=== PATIENT | female | born 1975 | race Caucasian/White ===

== ENCOUNTER 2017-04-05 20:54 | Emergency (ER) | payer OTHER ==
--- NOTE | 2017-04-05 21:19 | ERPHSYRPT ---
- History of Present Illness Time Seen by Provider: 04/05/17 21:10 Source: patient Exam Limitations: no limitations Physician History: States has latex allergy and was exposed to latex on 02/17/17 and was given Steroid shot/Predisone. Noted increased HR, dizziness, SOB, weakness with episode. Denies any CP, cough fever or any recent illness. States have not been evaluated for palpitations. Pt. on Toprol for HR control. Pt. previously evaluated for Hypo/Hyperthyroidism and was normal. States feels dehydrated but have been drinking well without N/V/D, but states mouth feels dry. Timing/Duration: day(s) (17), intermittent Severity: moderate Modifying Factors: Improves With: movement (worsens), rest (improves) Associated Symptoms: shortness of breath, weakness, No nausea, No vomiting, No heartburn, No cough, No chest pain, No headaches, No loss of appetite Allergies/Adverse Reactions: latex Allergy (Severe, Verified 04/05/17 21:14) Penicillins Allergy (Unknown, Verified 04/05/17 21:14) Home Medications: Albuterol Sulfate [Proventil] 2.5 mg IH DAILY PRN PRN 10/13/12 [History] Citalopram Hydrobromide 20 mg* [ceLEXa 20 MG] 20 mg PO HS 10/13/12 [History] Clonazepam 0.5 mg [Klonopin 0.5 MG] 0.5 mg PO BID PRN PRN 10/13/12 [ History] Montelukast Sodium 10 mg [Singulair 10 MG] 10 mg PO HS 10/13/12 [History] Pravastatin Sodium 10 mg PO HS 10/06/14 [History] Aspirin 81 mg PO DAILY 04/05/17 [History] Cholecalciferol (Vitamin D3) [Vitamin D] 1,000 unit PO 04/05/17 [History] Cyclobenzaprine HCl [Flexeril] 10 mg PO PRN 04/05/17 [History] Fluticasone/Salmeterol 230/21* [Advair Hfa 230/21 Mcg MDI] 2 puff IH BIDRT [History] Furosemide 40 mg [Lasix 40 MG] 40 mg PO PRN 04/05/17 [History] Liraglutide [Victoza 2-Glenn] 1.2 mg SQ DAILY 04/05/17 [History] Losartan Potassium 100 mg PO DAILY 04/05/17 [History] Metformin HCl [Metformin HCl ER] 500 mg PO BID 04/05/17 [History] Omeprazole 20 MG [Prilosec 20 mg] 20 mg PO DAILY 04/05/17 [History] Hx Influenza Vaccination/Date Given: Yes Hx Pneumococcal Vaccination/Date Given: No - Review of Systems Constitutional: Fatigue, No Fever, No Chills Eyes: No Symptoms Ears, Nose, & Throat: No Symptoms Respiratory: No Cough Cardiac: Palpitations, No Chest Pain, No Edema, No Syncope, No Orthopnea Abdominal/Gastrointestinal: No Abdominal Pain, No Nausea, No Vomiting, No Diarrhea Genitourinary Symptoms: No Dysuria Musculoskeletal: No Back Pain, No Neck Pain Skin: No Rash Neurological: No Dizziness, No Focal Weakness, No Sensory Changes Psychological: No Symptoms Endocrine: No Symptoms All Other Systems: Reviewed and Negative - Past Medical History Pertinent Past Medical History: Yes Neurological History: No Pertinent History ENT History: No Pertinent History Cardiac History: Arrhythmia Respiratory History: Asthma Endocrine Medical History: Diabetes Type II Musculoskeletal History: No Pertinent History GI Medical History: No Pertinent History History: No Pertinent History Psycho-Social History: No Pertinent History Female Reproductive Disorders: Fibroids Other Medical History: PT. HAD BUNIONECTOMY BIALTERAL AND ONNING OF SECOND TOES TO STRAIGHTEN AND DECREASE LATERAL DEVIATION 2012 - Past Surgical History Past Surgical History: Yes Neuro Surgical History: No Pertinent History Cardiac: No Pertinent History Respiratory: No Pertinent History Gastrointestinal: Cholecystectomy Genitourinary: No Pertinent History Musculoskeletal: Orthopedic Surgery Female Surgical History: Hysterectomy, Section Other Surgical History: tonsils, Bilateral feet - Social History Smoking Status: Never smoker Exposure to second hand smoke: Yes Drug Use: none Significant Family History: diabetes, hypertension - Nursing Vital Signs Nursing Vital Signs: Initial Vital Signs Temperature 98.7 F 04/05/17 21:10 Pulse Rate 114 H 04/05/17 21:10 Respiratory Rate 20 04/05/17 21:10 Blood Pressure 142/91 04/05/17 21:10 O2 Sat by Pulse Oximetry 96 04/05/17 21:10 Pain Scale Pain Intensity 0 - Physical Exam General Appearance: no apparent distress, alert Eye Exam: PERRL/EOMI, eyes nml inspection Ears, Nose, Throat Exam: normal ENT inspection, TMs normal, pharynx normal, moist mucous membranes Neck Exam: normal inspection, non-tender, supple, full range of motion Respiratory Exam: normal breath sounds, lungs clear, No respiratory distress Cardiovascular Exam: regular rate/rhythm, normal peripheral pulses, tachycardia Gastrointestinal/Abdomen Exam: soft, normal bowel sounds, No tenderness, No mass Back Exam: normal inspection, normal range of motion, No CVA tenderness, No vertebral tenderness Extremity Exam: normal inspection, normal range of motion, pelvis stable Neurologic Exam: alert, oriented x 3, cooperative, normal mood/affect, nml cerebellar function, nml station & gait, sensation nml, No motor deficits Skin Exam: normal color, warm, dry, No rash Lymphatic Exam: No adenopathy - Course Nursing assessment & vital signs reviewed: Yes EKG Interpreted by Me: RATE ([id number]), Sinus Tach, NORMAL AXIS, NORMAL INTERVALS, NORMAL QRS Ordered Tests: Active Orders 24 hr Category Date Time Status Supervisor Nurse STAT Care 04/05/17 21:26 Active Clean Catch Urine Specimen STAT Care 04/05/17 22:29 Active EKG-ER Only STAT Care 04/05/17 21:26 Active IV Insertion STAT Care 04/05/17 21:25 Active CHEST 2 VIEWS (PA AND LAT) Stat Exams 04/05/17 21:26 Taken CBC W DIFF Stat Lab 04/05/17 21:35 Completed CMP Stat Lab 04/05/17 21:35 Completed D-DIMER QUANTITATION Stat Lab 04/05/17 21:35 Completed MAGNESIUM Stat Lab 04/05/17 21:35 Completed Manual Differential NC Stat Lab 04/05/17 21:35 Completed PHOSPHOROUS Stat Lab 04/05/17 21:35 Completed UA W/RFX UR CULTURE Stat Lab 04/05/17 22:45 Completed Medication Summary Discontinued Medications Generic Name Dose Route Start Last Admin Trade Name Freq PRN Reason Stop Dose Admin Sodium Chloride 1,000 mls @ 999 mls/hr 04/05/17 21:25 04/05/17 21:35 Sodium Chloride 0.9% 1000 Ml IV 04/05/17 22:25 999 mls/hr .Q1H1M STA Administration Sodium Chloride Confirm 04/05/17 21:28 Sodium Chloride 0.9% 1000 Ml Administered 04/05/17 21:29 Dose 1,000 mls @ .ROUTE .STK-MED ONE Lab/Rad Data: Laboratory Result Diagrams 04/05/17 21:35 04/05/17 21:35 Laboratory Results 04/05/17 04/05/17 04/05/17 Range/Units 22:45 21:35 21:35 WBC (4.0-10.5) K/mm3 RBC (4.1-5.4) M/mm3 Hgb (12.0-16.0) gm/dl Hct (35-47) % MCV (78-100) fl MCH (26-32) pg MCHC (32-36) g/dl RDW (11.5-14.0) % Plt Count (150-450) K/mm3 MPV (6-9.5) fl Segmented Neutrophils (36.0-66.0) % Lymphocytes (Manual) (24-44) % Monocytes (Manual) (0.0-12.0) % Differential Comment Platelet Estimate (NORMAL) D-Dimer 234 (0-500) ng/mL Sodium 140 (136-145) mEq/L Potassium 3.7 (3.5-5.1) mEq/L Chloride 101 (98-107) mEq/L Carbon Dioxide 23.2 (21-32) mEq/L Anion Gap 19.1 H (5-15) MEQ/L BUN 19 (9-20) mg/dL Creatinine 0.96 (0.55-1.30) mg/dl Estimated GFR > 60 ML/MIN Glucose 183 H (70-110) MG/DL Calcium 9.3 (8.5-10.1) mg/dL Phosphorus 3.2 (2.6-4.7) mg/dL Magnesium 1.9 (1.8-2.4) mg/dL Total Bilirubin 0.30 (0.2-1.0) mg/dL AST 9 L (15-37) U/L ALT 39 (12-78) U/L Alkaline Phosphatase 83 (46-116) U/L Serum Total Protein 6.8 (6.4-8.2) gm/dL Albumin 3.7 (3.4-5.0) g/dL Ur Collection Type CLEAN CATCH Urine Color YELLOW (YELLOW) Urine Appearance CLEAR (CLEAR) Urine pH 5.0 (5-6) Ur Specific [place] 1.020 (1.005-1.025) Urine Protein NEGATIVE (Negative) Urine Ketones MODERATE (NEGATIVE) Urine Blood NEGATIVE (0-5) Curry/ul Urine Nitrite NEGATIVE (NEGATIVE) Urine Bilirubin NEGATIVE (NEGATIVE) Urine Urobilinogen NORMAL (0-1) mg/dL Ur Leukocyte Esterase NEGATIVE (NEGATIVE) Urine Glucose 250 (NEGATIVE) mg/dL Specimen Received 04/05/16 2245 04/05/17 Range/Units 21:35 WBC 17.9 H (4.0-10.5) K/mm3 RBC 4.48 (4.1-5.4) M/mm3 Hgb 13.0 (12.0-16.0) gm/dl Hct 39.6 (35-47) % MCV 88.4 (78-100) fl MCH 29.0 (26-32) pg MCHC 32.8 (32-36) g/dl RDW 15.5 H (11.5-14.0) % Plt Count 384 (150-450) K/mm3 MPV 8.9 (6-9.5) fl Segmented Neutrophils 78 H (36.0-66.0) % Lymphocytes (Manual) 15 L (24-44) % Monocytes (Manual) 7 (0.0-12.0) % Differential Comment NORMAL Platelet Estimate NORMAL (NORMAL) D-Dimer (0-500) ng/mL Sodium (136-145) mEq/L Potassium (3.5-5.1) mEq/L Chloride (98-107) mEq/L Carbon Dioxide (21-32) mEq/L Anion Gap (5-15) MEQ/L BUN (9-20) mg/dL Creatinine (0.55-1.30) mg/dl Estimated GFR ML/MIN Glucose (70-110) MG/DL Calcium (8.5-10.1) mg/dL Phosphorus (2.6-4.7) mg/dL Magnesium (1.8-2.4) mg/dL Total Bilirubin (0.2-1.0) mg/dL AST (15-37) U/L ALT (12-78) U/L Alkaline Phosphatase (46-116) U/L Serum Total Protein (6.4-8.2) gm/dL Albumin (3.4-5.0) g/dL Ur Collection Type Urine Color (YELLOW) Urine Appearance (CLEAR) Urine pH (5-6) Ur Specific [place] (1.005-1.025) Urine Protein (Negative) Urine Ketones (NEGATIVE) Urine Blood (0-5) Curry/ul Urine Nitrite (NEGATIVE) Urine Bilirubin (NEGATIVE) Urine Urobilinogen (0-1) mg/dL Ur Leukocyte Esterase (NEGATIVE) Urine Glucose (NEGATIVE) mg/dL Specimen Received - Progress Progress: improved Progress Note: 04/05/17 23:34 Pt. given IVF's with decrease HR 100's. Counseled pt/family regarding: lab results, diagnosis - Departure Time of Disposition: 23:36 Departure Disposition: Home Clinical Impression: Palpitations Condition: Stable Critical Care Time: No Referrals: MERRILL HAYES [Primary Care Provider] - Instructions: Arrhythmias Additional Instructions: Return for worse palpitations, chest pain, short of breath or any problems
[2017-04-05] MEDS ORDERED: Sodium Chloride 0.9% 1000 ML 1,000 ML IV STA (21:25)
[2017-04-05] MEDS ORDERED: Sodium Chloride 0.9% 1000 ML 1,000 ML ONE (21:28)
[2017-04-05 21:44] LABS: Mean Cell Volume 88.4 fl (78-100); Mean Platelet Volume 8.9 fl (6-9.5); Platelet Count 384 K/mm3 (150-450); Red Blood Count 4.48 M/mm3 (4.1-5.4); Red Cell Distribution Width 15.5 % (11.5-14.0); White Blood Count 17.9 K/mm3 (4.0-10.5)
[2017-04-05 22:06] LABS: ALBUMIN 3.7 g/dL (3.4-5.0); ALKALINE PHOSPHATASE 83 U/L (46-116); ANION GAP 19.1 MEQ/L (5-15); BLOOD UREA NITROGEN 19 mg/dL (9-20); CHLORIDE 101 mEq/L (98-107); Carbon Dioxide 23.2 mEq/L (21-32); Glucose 183 MG/DL (70-110); MAGNESIUM 1.9 mg/dL (1.8-2.4); PHOSPHOROUS 3.2 mg/dL (2.6-4.7); Potassium 3.7 mEq/L (3.5-5.1); SGOT/AST 9 U/L (15-37); SGPT/ALT 39 U/L (12-78); SODIUM 140 mEq/L (136-145); Total Protein 6.8 gm/dL (6.4-8.2)
[2017-04-05 23:04] LABS: Total Cells Counted 100
[2017-04-05 23:05] LABS: Platelet Estimate NORMAL (NORMAL)
[2017-04-05 23:23] LABS: Collection Type CLEAN CATCH; Glucose 250 mg/dL (NEGATIVE); Leukocyte Esterase NEGATIVE (NEGATIVE)
[2017-04-05 23:24] LABS: ADD URINE CULTURE? NO (NO); Bilirubin NEGATIVE (NEGATIVE); Blood NEGATIVE Ery/ul (0-5); COMPLETE URINE MICROSCOPIC? NO
[2017-04-06] VITALS: BP 130/88; PULSE 98; O2SAT 97
--- NOTE | 2017-04-06 08:47 | XRAY ---
Indication: Tachycardia and short of breath. Comparison: September 04, 2016. PA/lateral chest remains clear. Heart and mediastinal structures within normal limits. Bony thorax intact. Impression: Stable nonacute chest.
== END 2017-04-05 23:59 | disposition home or self-care (01) ==
LOC: ED 20:54
DX: R00.2 Palpitations (principal); E11.9 Type 2 diabetes mellitus without complications; Z79.84 Long term (current) use of oral hypoglycemic drugs; Z79.899 Other long term (current) drug therapy
CPT/HCPCS: 36000; 36415; 71020; 80053; 81002; 83735; 84100; 85025; 85379; 93005; 93041; 99284; 99285

== ENCOUNTER 2017-08-05 20:25 | Emergency (ER) | payer OTHER ==
[2017-08-05] MEDS ORDERED: Sodium Chloride 0.9% 1000 ML 1,000 ML IV STA (20:44)
[2017-08-05] MEDS ORDERED: DUONEB 0.5-3 MG/3 ml Neb IH ONE ×2 (20:44→20:54)
--- NOTE | 2017-08-05 20:49 | ERPHSYRPT ---
- History of Present Illness Time Seen by Provider: 08/05/17 20:36 Source: patient Exam Limitations: no limitations Patient Subjective Stated Complaint: pt states she has chetan sick with cough and fever since sunday. states she has had shortness of breath since yesterday and generalized aches. Triage Nursing Assessment: pt alert and oriented, answers questions approp. pt ambulatory with steady gait noted, respirations nonlabored with exp wheezes noted in bilat bases. skin pink warm and dry. Physician History: 41 y/o female with history of asthma comes to the ER with complaints of productive cough, fever, weakness and shortness of breath since Sunday. Pt has been using tylenol with minimal relief. Pt says she had a sore throat and has muscle aches. Multiple sick contacts. Pt eating and drinking less. Timing/Duration: yesterday Cough Quality/Degree: moderate Possible Cause: no prior episodes Modifying Factors: Improves With: nothing Associated Symptoms: fever, chills, cough, lightheadedness, shortness of breath , sore throat, wheezing Allergies/Adverse Reactions: latex Allergy (Severe, Verified 08/05/17 20:41) penicillin G Allergy (Intermediate, Verified 08/05/17 20:41) Hives Penicillins Allergy (Unknown, Verified 08/05/17 20:41) Home Medications: Albuterol Sulfate [Proventil] 2.5 mg IH DAILY PRN PRN 10/13/12 [History] Citalopram Hydrobromide 20 mg* [ceLEXa 20 MG] 20 mg PO HS 10/13/12 [History] Clonazepam 0.5 mg [Klonopin 0.5 MG] 0.5 mg PO BID PRN PRN 10/13/12 [ History] Montelukast Sodium 10 mg [Singulair 10 MG] 10 mg PO HS 10/13/12 [History] Pravastatin Sodium 10 mg PO HS 10/06/14 [History] Aspirin 81 gm Chew [Baby Aspirin 81 mg Chew] 81 mg PO HS 01/19/17 [History ] Clonazepam 0.5 mg [Klonopin 0.5 MG] 0.5 mg PO UD 01/19/17 [History] Escitalopram Oxalate 10 mg [Lexapro 10 MG] 20 mg PO HS 01/19/17 [History] Losartan Potassium [Cozaar] 100 mg PO DAILY 01/19/17 [History] Metformin HCl [Metformin HCl ER] 500 mg PO BID 01/19/17 [History] Metoprolol Succinate [Toprol Xl] 75 mg PO BID 01/19/17 [History] Montelukast Sodium [Singulair] 10 mg PO HS 01/19/17 [History] Pravastatin Sodium [Pravachol] 10 mg PO HS 01/19/17 [History] Cholecalciferol (Vitamin D3) [Vitamin D3] 50,000 unit PO FR 01/20/17 [History] Aspirin 81 mg PO DAILY 04/05/17 [History] Cholecalciferol (Vitamin D3) [Vitamin D] 1,000 unit PO 04/05/17 [History] Cyclobenzaprine HCl [Flexeril] 10 mg PO PRN 04/05/17 [History] Fluticasone/Salmeterol 230/21* [Advair Hfa 230/21 Mcg MDI] 2 puff IH BIDRT [History] Furosemide 40 mg [Lasix 40 MG] 40 mg PO PRN 04/05/17 [History] Liraglutide [Victoza 2-Glenn] 1.2 mg SQ DAILY 04/05/17 [History] Losartan Potassium 100 mg PO DAILY 04/05/17 [History] Metformin HCl [Metformin HCl ER] 500 mg PO BID 04/05/17 [History] Omeprazole 20 MG [Prilosec 20 mg] 20 mg PO DAILY 04/05/17 [History] Hx Tetanus, Diphtheria Vaccination/Date Given: Yes Hx Influenza Vaccination/Date Given: Yes Hx Pneumococcal Vaccination/Date Given: No Immunizations Up to Date: Yes - Review of Systems Constitutional: Fever, Chills, Weakness Eyes: No Symptoms Ears, Nose, & Throat: No Symptoms, Throat Pain, Throat Swelling Respiratory: Cough, Dyspnea, Dyspnea on Exertion (HERNANDEZ) Cardiac: No Chest Pain, No Edema, No Syncope Abdominal/Gastrointestinal: No Abdominal Pain, No Nausea, No Vomiting, No Diarrhea Genitourinary Symptoms: No Dysuria Musculoskeletal: Myalgias, No Back Pain, No Neck Pain Skin: No Rash Neurological: No Dizziness, No Focal Weakness, No Sensory Changes Psychological: No Symptoms Endocrine: No Symptoms All Other Systems: Reviewed and Negative - Past Medical History Pertinent Past Medical History: Yes Neurological History: No Pertinent History ENT History: No Pertinent History Cardiac History: Arrhythmia, Hypertension Respiratory History: Asthma Endocrine Medical History: Diabetes Type II Musculoskeletal History: No Pertinent History GI Medical History: No Pertinent History History: No Pertinent History, Other Psycho-Social History: No Pertinent History Female Reproductive Disorders: No Pertinent History, Fibroids Other Medical History: PT. HAD BUNIONECTOMY BIALTERAL AND ONNING OF SECOND TOES TO STRAIGHTEN AND DECREASE LATERAL DEVIATION 2012 - Past Surgical History Past Surgical History: Yes Neuro Surgical History: No Pertinent History Cardiac: No Pertinent History Respiratory: No Pertinent History Gastrointestinal: Cholecystectomy Genitourinary: No Pertinent History Musculoskeletal: Orthopedic Surgery, Other Female Surgical History: Hysterectomy, Section Other Surgical History: tonsils, Bilateral feet - Social History Smoking Status: Never smoker Exposure to second hand smoke: No Drug Use: none Patient Lives Alone: No Significant Family History: diabetes, hypertension - Female History Hx Last Menstrual Period: hyster Hx Now: No - Nursing Vital Signs Nursing Vital Signs: Initial Vital Signs Temperature 99.5 F 08/05/17 20:31 Pulse Rate 84 08/05/17 20:31 Respiratory Rate 18 08/05/17 20:31 Blood Pressure 119/80 08/05/17 20:31 O2 Sat by Pulse Oximetry 96 08/05/17 20:31 Pain Scale Pain Intensity 3 - Physical Exam General Appearance: mild distress, alert Eye Exam: PERRL/EOMI, eyes nml inspection Ears, Nose, Throat Exam: normal ENT inspection, TMs normal, pharynx normal, moist mucous membranes Neck Exam: normal inspection, non-tender, supple, full range of motion Respiratory Exam: normal breath sounds, lungs clear, No respiratory distress Cardiovascular Exam: regular rate/rhythm, normal heart sounds Gastrointestinal/Abdomen Exam: soft, No tenderness Back Exam: normal inspection, No CVA tenderness, No vertebral tenderness Extremity Exam: normal inspection, normal range of motion Neurologic Exam: alert, oriented x 3, cooperative, normal mood/affect, sensation nml, No motor deficits Skin Exam: normal color, warm, dry, No rash Lymphatic Exam: No adenopathy SpO2: 99 Oxygen Delivery: Room Air - Course Nursing assessment & vital signs reviewed: Yes Ordered Tests: Active Orders 24 hr Category Date Time Status IV Insertion STAT Care 08/05/17 20:44 Active CHEST 2 VIEWS (PA AND LAT) Stat Exams 08/05/17 20:44 Taken BLOOD CULTURE Stat Lab 08/05/17 21:05 Received CBC W DIFF Stat Lab 08/05/17 20:55 Completed CMP Stat Lab 08/05/17 20:55 Completed CULTURE, THROAT Stat Lab 08/05/17 21:05 Received HCG QUALITATIVE,SERUM Stat Lab 08/05/17 20:55 Completed STREP SCREEN-BETA A Stat Lab 08/05/17 21:05 Completed Respiratory Nebulizer STAT RT 08/05/17 20:45 Completed Medication Summary Discontinued Medications Generic Name Dose Route Start Last Admin Trade Name Freq PRN Reason Stop Dose Admin Albuterol/Ipratropium 3 ml 08/05/17 20:44 08/05/17 20:55 Duoneb 0.5-3 Mg/3 Ml Neb IH 08/05/17 20:45 3 ml STAT ONE Administration Albuterol/Ipratropium Confirm 08/05/17 20:54 Duoneb 0.5-3 Mg/3 Ml Neb Administered 08/05/17 20:55 Dose 3 ml IH .STK-MED ONE Sodium Chloride 1,000 mls @ 999 mls/hr 08/05/17 20:44 08/05/17 20:59 Sodium Chloride 0.9% 1000 Ml IV 08/05/17 21:44 999 mls/hr .Q1H1M STA Administration Sodium Chloride Confirm 08/05/17 20:53 Sodium Chloride 0.9% 1000 Ml Administered 08/05/17 20:54 Dose 1,000 mls @ ud .ROUTE .STK-MED ONE Potassium Chloride 40 meq 08/05/17 21:47 08/05/17 22:05 Klor Con 10 Meq PO 08/05/17 21:48 40 meq STAT ONE Administration Potassium Chloride Confirm 08/05/17 22:03 Klor Con 10 Meq Administered 08/05/17 22:04 Dose 40 meq PO .STK-MED ONE Lab/Rad Data: Laboratory Result Diagrams 08/05/17 20:55 08/05/17 20:55 Laboratory Results 08/05/17 08/05/17 08/05/17 Range/Units 21:05 21:05 20:55 WBC (4.0-10.5) K/mm3 RBC (4.1-5.4) M/mm3 Hgb (12.0-16.0) gm/dl Hct (35-47) % MCV (78-100) fl MCH (26-32) pg MCHC (32-36) g/dl RDW (11.5-14.0) % Plt Count (150-450) K/mm3 MPV (6-9.5) fl Gran % (36.0-66.0) % Lymphocytes % (24.0-44.0) % Monocytes % (0.0-12.0) % Eosinophils % (0.00-5.0) % Basophils % (0.0-0.4) % Basophils # (0-0.4) Sodium (136-145) mEq/L Potassium (3.5-5.1) mEq/L Chloride (98-107) mEq/L Carbon Dioxide (21-32) mEq/L Anion Gap (5-15) MEQ/L BUN (9-20) mg/dL Creatinine (0.55-1.30) mg/dl Estimated GFR ML/MIN Glucose (70-110) MG/DL Calcium (8.5-10.1) mg/dL Total Bilirubin (0.2-1.0) mg/dL AST (15-37) U/L ALT (12-78) U/L Alkaline Phosphatase (46-116) U/L Serum Total Protein (6.4-8.2) gm/dL Albumin (3.4-5.0) g/dL Serum , Qual NEGATIVE (Negative) Influenza Type A Ag POSITIVE (NEGATIVE) Influenza Type B Ag NEGATIVE (NEGATIVE) RSV (PCR) NEGATIVE (Negative) Streptococcus Screen NEGATIVE (Negative) 08/05/17 08/05/17 Range/Units 20:55 20:55 WBC 4.3 (4.0-10.5) K/mm3 RBC 4.44 (4.1-5.4) M/mm3 Hgb 12.3 (12.0-16.0) gm/dl Hct 38.6 (35-47) % MCV 86.9 (78-100) fl MCH 27.7 (26-32) pg MCHC 31.9 L (32-36) g/dl RDW 13.2 (11.5-14.0) % Plt Count 333 (150-450) K/mm3 MPV 8.9 (6-9.5) fl Gran % 62.9 (36.0-66.0) % Lymphocytes % 24.0 (24.0-44.0) % Monocytes % 10.6 (0.0-12.0) % Eosinophils % 2.3 (0.00-5.0) % Basophils % 0.2 (0.0-0.4) % Basophils # 0.01 (0-0.4) Sodium 138 (136-145) mEq/L Potassium 3.2 L (3.5-5.1) mEq/L Chloride 101 (98-107) mEq/L Carbon Dioxide 30.7 (21-32) mEq/L Anion Gap 9.1 (5-15) MEQ/L BUN 5 L (9-20) mg/dL Creatinine 0.75 (0.55-1.30) mg/dl Estimated GFR > 60 ML/MIN Glucose 108 (70-110) MG/DL Calcium 8.3 L (8.5-10.1) mg/dL Total Bilirubin 0.20 (0.2-1.0) mg/dL AST 26 (15-37) U/L ALT 48 (12-78) U/L Alkaline Phosphatase 90 (46-116) U/L Serum Total Protein 6.9 (6.4-8.2) gm/dL Albumin 3.4 (3.4-5.0) g/dL Serum , Qual (Negative) Influenza Type A Ag (NEGATIVE) Influenza Type B Ag (NEGATIVE) RSV (PCR) (Negative) Streptococcus Screen (Negative) - Progress Progress: improved Progress Note: 08/05/17 22:20 Pt feels better after receiving NS fluids. The K is 3.2 which will be replaced. The patient is Influenza A positive. Pt will be started on tamiflu for 5 days. - Departure Time of Disposition: 22:21 Departure Disposition: Home Clinical Impression: Influenza A Condition: Stable Critical Care Time: No Referrals: MERRILL HAYES [Primary Care Provider] - Instructions: Influenza -- Adult Additional Instructions: Follow up with your primary care doctor if you should continue to have worsening cough, shortness of breath, fever or chills. Finish the Tamiflu until completion. Prescriptions: Oseltamivir Phosphate [Tamiflu] 75 mg PO BID #9 capsule
[2017-08-05] MEDS ORDERED: Sodium Chloride 0.9% 1000 ML 1,000 ML ONE (20:53)
[2017-08-05 21:09] LABS: BASOPHIL % 0.2 % (0.0-0.4); Eosinophil % 2.3 % (0.00-5.0); Granulocytes % 62.9 % (36.0-66.0); Mean Cell Volume 86.9 fl (78-100); Mean Corpuscular Hemoglobin 27.7 pg (26-32); Mean Platelet Volume 8.9 fl (6-9.5); Monocytes % 10.6 % (0.0-12.0); Platelet Count 333 K/mm3 (150-450); Red Blood Count 4.44 M/mm3 (4.1-5.4); Red Cell Distribution Width 13.2 % (11.5-14.0); White Blood Count 4.3 K/mm3 (4.0-10.5)
[2017-08-05 21:31] LABS: ALBUMIN 3.4 g/dL (3.4-5.0); ALKALINE PHOSPHATASE 90 U/L (46-116); ANION GAP 9.1 MEQ/L (5-15); BLOOD UREA NITROGEN 5 mg/dL (9-20); CHLORIDE 101 mEq/L (98-107); Carbon Dioxide 30.7 mEq/L (21-32); Glucose 108 MG/DL (70-110); Potassium 3.2 mEq/L (3.5-5.1); SGOT/AST 26 U/L (15-37); SGPT/ALT 48 U/L (12-78); SODIUM 138 mEq/L (136-145); Total Protein 6.9 gm/dL (6.4-8.2)
[2017-08-05] MEDS ORDERED: Klor Con 10 MEQ PO ONE ×2 (21:47→22:03)
[2017-08-05] MEDS ORDERED: Tamiflu 75MG Capsule PO ONE ×2 (22:19→22:27)
[2017-08-05 22:53] VITALS: BP 119/73; PULSE 93; O2SAT 97
--- NOTE | 2017-08-06 08:39 | XRAY ---
Indication: Short of breath, fever, cough, and wheezing. Comparison: April 05, 2017. PA/lateral chest again demonstrates normal heart, lungs, and bony thorax.
== END 2017-08-05 22:55 | disposition home or self-care (01) ==
LOC: ED 20:25
DX: J11.1 Influenza due to unidentified influenza virus with other respiratory manifestations (principal)
CPT/HCPCS: 36000; 36415; 71020; 80053; 84703; 85025; 87040; 87070; 87430; 87631; 94640; 96360; 99284; A9270-GY

== ENCOUNTER 2018-07-08 08:58 | Emergency (ER) | payer OTHER ==
[2018-07-08 09:11] VITALS: BP 115/75; PULSE 92; O2SAT 97
--- NOTE | 2018-07-08 09:24 | ERPHSYRPT ---
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 Patient states she was at work she was moving respiratory cart and smashed it between the cart and the door. She is complains of swelling and pain in her left fifth finger located at the PIP joint she has moderate amount of edema to the left fifth PIP joint with ecchymosis small abrasion. She states she cannot fully flex her left fifth PIP joint. Past medical history includes asthma, arrhythmia (tachycardia), high blood pressure, diabetes type 2, fibroids, kidney stones Past surgical history includes cholecystectomy, hysterectomy, , tonsils , bilateral foot surgery Social history patient denies tobacco use Occurred: just prior to arrival, this morning Method of Injury: other (smashed left fifth finger between respiratory cart and door frame) Quality: constant Severity of Pain-Max: mild Severity of Pain-Current: mild Extremities Pain Location: 5th finger: left Modifying Factors: Improves With: nothing Associated Symptoms: No back pain, No chills, No chest discomfort, No chest pain , No dyspnea, No fever, No jaw pain, No nausea, No neck pain, No sweating, No short of breath, No vomiting Allergies/Adverse Reactions: latex Allergy (Severe, Verified 07/08/18 09:11) penicillin G Allergy (Intermediate, Verified 07/08/18 09:11) Hives Penicillins Allergy (Unknown, Verified 07/08/18 09:11) Home Medications: Albuterol Sulfate [Proventil] 2.5 mg IH DAILY PRN PRN 10/13/12 [History] Clonazepam 0.5 mg [Klonopin 0.5 MG] 0.5 mg PO BID PRN PRN 10/13/12 [ History] Montelukast Sodium 10 mg [Singulair 10 MG] 10 mg PO HS 10/13/12 [History] Pravastatin Sodium 10 mg PO HS 10/06/14 [History] Metoprolol Succinate [Toprol Xl] 100 mg PO BID 01/19/17 [History] Aspirin 81 mg PO DAILY 04/05/17 [History] Cholecalciferol (Vitamin D3) [Vitamin D] 1,000 unit PO DAILY 04/05/17 [ History] Cyclobenzaprine HCl [Flexeril] 10 mg PO DAILY 04/05/17 [History] Fluticasone/Salmeterol 230/21* [Advair Hfa 230/21 Mcg MDI] 2 puff IH BIDRT [History] Furosemide 40 mg [Lasix 40 MG] 40 mg PO DAILY 04/05/17 [History] Liraglutide [Victoza 2-Glenn] 1.2 mg SQ DAILY 04/05/17 [History] Losartan Potassium 100 mg PO DAILY 04/05/17 [History] Metformin HCl [Metformin HCl ER] 500 mg PO BID 04/05/17 [History] Omeprazole 20 MG [Prilosec 20 mg] 20 mg PO DAILY 04/05/17 [History] Diltiazem HCl 120 mg [Cardizem CD 120 MG] 120 mg PO DAILY 07/08/18 [ History] Paroxetine HCl 20 mg [Paxil 20 MG] 40 mg PO DAILY 07/08/18 [History] Hx Tetanus, Diphtheria Vaccination/Date Given: Yes Hx Influenza Vaccination/Date Given: Yes Hx Pneumococcal Vaccination/Date Given: No - Review of Systems Constitutional: No Fever, No Chills Eyes: No Symptoms Ears, Nose, & Throat: No Symptoms Respiratory: No Cough, No Dyspnea Cardiac: No Symptoms Abdominal/Gastrointestinal: No Abdominal Pain, No Nausea, No Vomiting, No Diarrhea Genitourinary Symptoms: No Dysuria Musculoskeletal: Injury, Joint Swelling, Other (pain and swelling left fifth PIP joint) Skin: Other (Ecchymosis left fifth finger overlying PIP joint small abrasion dorsally over lying left fifth PIP joint) Neurological: No Dizziness, No Focal Weakness, No Sensory Changes Psychological: No Symptoms Endocrine: No Symptoms All Other Systems: Reviewed and Negative - Past Medical History Pertinent Past Medical History: Yes Neurological History: No Pertinent History ENT History: No Pertinent History Cardiac History: Arrhythmia, Hypertension Respiratory History: Asthma Endocrine Medical History: Diabetes Type II Musculoskeletal History: No Pertinent History GI Medical History: No Pertinent History History: No Pertinent History, Other Psycho-Social History: No Pertinent History Female Reproductive Disorders: No Pertinent History, Fibroids Other Medical History: PT. HAD BUNIONECTOMY BIALTERAL AND ONNING OF SECOND TOES TO STRAIGHTEN AND DECREASE LATERAL DEVIATION 2012 - Past Surgical History Past Surgical History: Yes Neuro Surgical History: No Pertinent History Cardiac: No Pertinent History Respiratory: No Pertinent History Gastrointestinal: Cholecystectomy Genitourinary: No Pertinent History Musculoskeletal: Orthopedic Surgery, Other Female Surgical History: Hysterectomy, Section Other Surgical History: tonsils, Bilateral feet - Social History Smoking Status: Never smoker Exposure to second hand smoke: No Drug Use: none Patient Lives Alone: No Significant Family History: diabetes, hypertension - Female History Hx Now: No - Nursing Vital Signs Nursing Vital Signs: Initial Vital Signs Temperature 98.1 F 07/08/18 09:04 Pulse Rate 92 H 07/08/18 09:04 Blood Pressure 115/75 07/08/18 09:04 O2 Sat by Pulse Oximetry 97 07/08/18 09:04 Pain Scale Pain Intensity 3 - Physical Exam General Appearance: mild distress Eyes, Ears, Nose, Throat Exam: moist mucous membranes Neck Exam: non-tender, supple Cardiovascular/Respiratory Exam: chest non-tender, normal breath sounds, regular rate/rhythm, no respiratory distress Abdominal Exam: non-tender, No guarding Back Exam: normal inspection, No vertebral tenderness Shoulder Exam: normal inspection, non-tender, no evidence of injury, normal ROM Elbow/Forearm Exam: normal inspection, non-tender, no evidence of injury, normal ROM Wrist Exam: normal inspection, non-tender, no evidence of injury, normal ROM Hand Exam: No normal inspection (left fifth finger with edema, ecchymosis and small abrasion overlying left fifth PIP joint, decreased range of motiion left fifth pip joint due to pain and swelling. Good capillary refill left fifth finger. Sensation intact left fifth finger.) Neuro/Tendon Exam: normal sensation, normal motor functions Mental Status Exam: alert, oriented x 3, cooperative Skin Exam: normal color, warm, dry SpO2 Interpretation: normal (97%) SpO2: 97 Oxygen Delivery: Room Air - Course Nursing assessment & vital signs reviewed: Yes - Radiology Exams Left Other X-ray Interpretation: Discussed w/ radiologist (x ray left fifth finger : soft tissue swelling proximally, no other bony, articular, or soft tissue abnormalities.) Ordered Tests: Active Orders 24 hr Category Date Time Status Splint STAT Care 07/08/18 09:39 Active Wound Care STAT Care 07/08/18 09:39 Active FINGER(S) Stat Exams 07/08/18 09:27 Taken - Progress Progress: improved Progress Note: 07/08/18 09:40 Was him 42-year-old white female arrives with complaint of pain in her left finger symptoms since just prior to arrival. Patient states that she caught her finger between a door frame and the respiratory heart. She has swelling and pain overlying the left fifth PIP joint she has a small abrasion dorsally to the area she has decreased range of motion to the left fifth finger at the PIP joint secondary to swelling and pain. X-ray of the left fifth finger shows soft tissue swelling proximally there are no other bony articular, or soft tissue abnormalities. We'll have the nurses clean the area and apply splint. Patient states does not want any pain medicine such as Tylenol or Motrin at this time. Will have patient uses splint for several days cold packs to the area Tylenol every 4 hours as needed for pain. And follow-up with her company physician. - Departure Time of Disposition: 09:42 Departure Disposition: Home Clinical Impression: contusion left fifth finger Condition: Fair Critical Care Time: No Referrals: MERRILL HAYES [Primary Care Provider] - Additional Instructions: Return home. Tylenol every 4 hours as needed for pain. Cold packs to left fifth finger 24-48 hours. Bacitracin to abrasion until healed. Leave splint in place 48-72 hours, longer if pain persists. Follow-up with your company physician. Return for acute distress or for severe symptoms.
[2018-07-08] MEDS ORDERED: BACIGUENT PACKET TP ONE (09:39)
--- NOTE | 2018-07-08 09:42 | XRAY ---
Indication: Pain following injury. Comparison: None 3 views of the left 5th finger demonstrates proximal soft tissue swelling. No other bony, articular, or soft tissue abnormalities.
[2018-07-08] MEDS ORDERED: BACIGUENT PACKET ONE (09:43)
== END 2018-07-08 09:55 | disposition home or self-care (01) ==
LOC: ED 08:58
DX: S60.052A Contusion of left little finger without damage to nail, initial encounter (principal); W23.0XXA Caught, crushed, jammed, or pinched between moving objects, initial encounter; Y93.89 Activity, other specified; Y92.239 Unspecified place in hospital as the place of occurrence of the external cause; Y99.0 Civilian activity done for income or pay
CPT/HCPCS: 73140; 99283; A9270-GY

== ENCOUNTER 2019-05-18 12:07 | Emergency (ER) | payer OTHER ==
[2019-05-18] MEDS ORDERED: TYLENOL 325 MG PO ONE (12:29)
[2019-05-18] MEDS ORDERED: Sodium Chloride 0.9% 1000 ML 1,000 ML IV STA (12:29)
[2019-05-18] MEDS ORDERED: DUONEB 0.5-3 MG/3 ml Neb IH ONE ×2 (12:29→12:40)
[2019-05-18] MEDS ORDERED: Sodium Chloride 0.9% 1000 ML 1,000 ML ONE (12:39)
[2019-05-18] MEDS ORDERED: TYLENOL 325 MG ONE (12:39)
--- NOTE | 2019-05-18 12:40 | ERPHSYRPT ---
- History of Present Illness Time Seen by Provider: 05/18/19 12:38 Source: patient Exam Limitations: no limitations Patient Subjective Stated Complaint: pt reports productive cough with yellow sputum since 05/15/19 with fever starting last night. states she was seen yesterday 05/17/19 at [facility] and received a steroid injection as well as oral steroid. pt has taken albuterol G[employer]OR. Triage Nursing Assessment: pt is aox3, pupils perrl, afebrile, resps are easy, non labored, pt is short of breath at rest, lung sounds are diminished posteriorly bilat, intermittent cough noted upon exam, radial pulse strong equal , cap refill < 3 seconds, pt skin appears flushed, warm dry. Physician History: 43 years old female came to ER reports productive cough with yellow sputum since 05/15/19 with fever starting last night. states she was seen yesterday 05/17/19 at [facility] and received a steroid injection as well as oral steroid. patient has taken albuterol . Timing/Duration: day(s) (3-4 days) Cough Quality/Degree: moderate, productive cough Possible Cause: no prior episodes Modifying Factors: Improves With: albuterol inhaler Associated Symptoms: fever, chills, shortness of breath, wheezing International travel in last 2 weeks: No Allergies/Adverse Reactions: latex Allergy (Severe, Verified 07/08/18 09:11) penicillin G Allergy (Intermediate, Verified 07/08/18 09:11) Hives Penicillins Allergy (Unknown, Verified 07/08/18 09:11) Home Medications: Albuterol Sulfate [Proventil] 2.5 mg IH DAILY PRN PRN 10/13/12 [History] Clonazepam 0.5 mg [Klonopin 0.5 MG] 0.5 mg PO BID PRN PRN 10/13/12 [ History] Montelukast Sodium 10 mg [Singulair 10 MG] 10 mg PO HS 10/13/12 [History] Pravastatin Sodium 10 mg PO HS 10/06/14 [History] Metoprolol Succinate [Toprol Xl] 100 mg PO BID 01/19/17 [History] Aspirin 81 mg PO DAILY 04/05/17 [History] Cholecalciferol (Vitamin D3) [Vitamin D] 1,000 unit PO DAILY 04/05/17 [ History] Cyclobenzaprine HCl [Flexeril] 10 mg PO DAILY 04/05/17 [History] Fluticasone/Salmeterol 230/21* [Advair Hfa 230/21 Mcg MDI] 2 puff IH BIDRT [History] Furosemide 40 mg [Lasix 40 MG] 40 mg PO DAILY 04/05/17 [History] Liraglutide [Victoza 2-Glenn] 1.2 mg SQ DAILY 04/05/17 [History] Losartan Potassium 100 mg PO DAILY 04/05/17 [History] Metformin HCl [Metformin HCl ER] 500 mg PO BID 04/05/17 [History] Omeprazole 20 MG [Prilosec 20 mg] 20 mg PO DAILY 04/05/17 [History] Diltiazem HCl 120 mg [Cardizem CD 120 MG] 120 mg PO DAILY 07/08/18 [ History] Paroxetine HCl 20 mg [Paxil 20 MG] 40 mg PO DAILY 07/08/18 [History] Hx Tetanus, Diphtheria Vaccination/Date Given: Yes Hx Influenza Vaccination/Date Given: No Hx Pneumococcal Vaccination/Date Given: No Immunizations Up to Date: Yes - Review of Systems Constitutional: Fever, Chills Eyes: No Symptoms Ears, Nose, & Throat: No Symptoms Respiratory: Cough, Dyspnea on Exertion (HERNANDEZ), Wheezing, No Dyspnea Cardiac: No Chest Pain, No Edema, No Syncope Abdominal/Gastrointestinal: No Abdominal Pain, No Nausea, No Vomiting, No Diarrhea Genitourinary Symptoms: No Dysuria Musculoskeletal: No Back Pain, No Neck Pain Skin: No Rash Neurological: No Dizziness, No Focal Weakness, No Sensory Changes Psychological: No Symptoms Endocrine: No Symptoms All Other Systems: Reviewed and Negative - Past Medical History Pertinent Past Medical History: Yes Neurological History: No Pertinent History ENT History: No Pertinent History Cardiac History: Arrhythmia, Other Respiratory History: Asthma Endocrine Medical History: Other Musculoskeletal History: No Pertinent History GI Medical History: No Pertinent History History: No Pertinent History, Other Psycho-Social History: No Pertinent History Female Reproductive Disorders: No Pertinent History, Fibroids Other Medical History: tachycardia, goiter, low bone density due to history of steriod use for asthma. 2014 surgery on L foot - Past Surgical History Past Surgical History: Yes Neuro Surgical History: No Pertinent History Cardiac: No Pertinent History Respiratory: No Pertinent History Gastrointestinal: Cholecystectomy Genitourinary: No Pertinent History Musculoskeletal: Orthopedic Surgery, Other Female Surgical History: Hysterectomy, Section Other Surgical History: tonsils, Bilateral feet - Social History Smoking Status: Never smoker Exposure to second hand smoke: No Drug Use: none Patient Lives Alone: No Significant Family History: diabetes, hypertension - Female History Hx Now: No - Nursing Vital Signs Nursing Vital Signs: Initial Vital Signs Temperature 99.5 F 05/18/19 12:19 Pulse Rate 98 H 05/18/19 12:19 Respiratory Rate 24 05/18/19 12:19 Blood Pressure 128/69 05/18/19 12:19 O2 Sat by Pulse Oximetry 95 05/18/19 12:19 Pain Scale Pain Intensity 0 - Physical Exam General Appearance: no apparent distress, alert Eye Exam: PERRL/EOMI, eyes nml inspection Ears, Nose, Throat Exam: normal ENT inspection, TMs normal, pharynx normal, moist mucous membranes Neck Exam: normal inspection, non-tender, supple, full range of motion Respiratory Exam: crackles/rales, rhonchi, wheezing, No respiratory distress Cardiovascular Exam: regular rate/rhythm, normal heart sounds Gastrointestinal/Abdomen Exam: soft, No tenderness Back Exam: normal inspection, No CVA tenderness, No vertebral tenderness Extremity Exam: normal inspection, normal range of motion Neurologic Exam: alert, oriented x 3, cooperative, normal mood/affect, sensation nml, No motor deficits Skin Exam: normal color, warm, dry, No rash Lymphatic Exam: No adenopathy SpO2: 95 - Course Nursing assessment & vital signs reviewed: Yes - Radiology Exams Chest X-ray Interpretation: Reviewed by me (right middle lobe infiltrate) Ordered Tests: Active Orders 24 hr Category Date Time Status Pulse Oximetry (ED) STAT Care 05/18/19 12:29 Active CHEST 2 VIEWS (PA AND LAT) Stat Exams 05/18/19 12:29 Ordered BLOOD CULTURE Stat Lab 05/18/19 12:45 Received CBC W DIFF Stat Lab 05/18/19 12:45 Completed CMP Stat Lab 05/18/19 12:45 Completed Peak Expiratory Flow Rate ONCE RT 05/18/19 12:57 Active Respiratory Therapy Assessment DAILY RT 05/18/19 12:43 Active Medication Summary Discontinued Medications Generic Name Dose Route Start Last Admin Trade Name Igor PRN Reason Stop Dose Admin Acetaminophen 650 mg 05/18/19 12:29 05/18/19 12:50 Tylenol 325 Mg PO 05/18/19 12:30 Not Given STAT ONE Acetaminophen Confirm 05/18/19 12:39 Tylenol 325 Mg Administered 05/18/19 12:40 Dose 650 mg .ROUTE .STK-MED ONE Albuterol/Ipratropium 3 ml 05/18/19 12:29 05/18/19 12:43 Duoneb 0.5-3 Mg/3 Ml Neb IH 05/18/19 12:30 3 ml STAT ONE Administration Albuterol/Ipratropium Confirm 05/18/19 12:40 Duoneb 0.5-3 Mg/3 Ml Neb Administered 05/18/19 12:41 Dose 3 ml IH .STK-MED ONE Sodium Chloride 1,000 mls @ 999 mls/hr 05/18/19 12:29 05/18/19 13:50 Sodium Chloride 0.9% 1000 Ml IV 05/18/19 13:29 Infused .Q1H1M STA Infusion Sodium Chloride Confirm 05/18/19 12:39 Sodium Chloride 0.9% 1000 Ml Administered 05/18/19 12:40 Dose 1,000 mls @ ud .ROUTE .STK-MED ONE Azithromycin 500 mg in 250 mls @ 250 mls/hr 05/18/19 13:06 05/18/19 13:47 Zithromax 500 Mg/ 250 Ml Nacl Premix IV 05/18/19 14:05 250 mls/hr STAT STA 250 mls/hr Administration Ceftriaxone Sodium/Dextrose 1 g in 50 mls @ 100 mls/hr 05/18/19 13:10 13:51 Rocephin 1 Gm-D5w 50 Ml Bag IV 05/18/19 13:39 Infused STAT STA Infusion Azithromycin Confirm 05/18/19 13:13 Zithromax 500 Mg/ 250 Ml Nacl Premix Administered 05/18/19 13:14 Dose 500 mg in 250 mls @ ud IV .STK-MED ONE Ceftriaxone Sodium/Dextrose Confirm 05/18/19 13:13 Rocephin 1 Gm-D5w 50 Ml Bag Administered 05/18/19 13:14 Dose 1 g in 50 mls @ ud IV .STK-MED ONE Ibuprofen 400 mg 05/18/19 14:52 05/18/19 14:54 Motrin 400 Mg PO 05/18/19 14:53 400 mg STAT ONE Administration Ibuprofen Confirm 05/18/19 14:54 Motrin 400 Mg Administered 05/18/19 14:55 Dose 400 mg .ROUTE .K-MED ONE Lab/Rad Data: Laboratory Result Diagrams 05/18/19 12:45 05/18/19 12:45 Laboratory Results 05/18/19 05/18/19 05/18/19 Range/Units 12:45 12:45 12:45 WBC 8.3 (4.0-10.5) K/mm3 RBC 4.14 (4.1-5.4) M/mm3 Hgb 11.2 L (12.0-16.0) gm/dl Hct 34.8 L (35-47) % MCV 84.1 (78-100) fl MCH 27.0 (26-32) pg MCHC 32.2 (32-36) g/dl RDW 14.6 H (11.5-14.0) % Plt Count 351 (150-450) K/mm3 MPV 8.5 (6-9.5) fl Gran % 86.9 H (36.0-66.0) % Eos # (Auto) 0.01 (0-0.5) Absolute Lymphs (auto) 0.59 L (1.0-4.6) Absolute Monos (auto) 0.48 (0.0-1.3) Lymphocytes % 7.1 L (24.0-44.0) % Monocytes % 5.8 (0.0-12.0) % Eosinophils % 0.1 (0.00-5.0) % Basophils % 0.1 (0.0-0.4) % Absolute Granulocytes 7.22 H (1.4-6.9) Basophils # 0.01 (0-0.4) Sodium 141 (137-145) mmol/L Potassium 3.1 L (3.5-5.1) mmol/L Chloride 100 (98-107) mmol/L Carbon Dioxide 26 (22-30) mmol/L Anion Gap 18.6 H (5-15) MEQ/L BUN 9 (7-17) mg/dL Creatinine 0.57 (0.52-1.04) mg/dL Estimated GFR > 60.0 ML/MIN Glucose 106 (74-106) mg/dL Calcium 9.5 (8.4-10.2) mg/dL Total Bilirubin 0.50 (0.2-1.3) mg/dL AST 15 (14-36) U/L ALT 26 (0-35) U/L Alkaline Phosphatase 74 (38-126) U/L Serum Total Protein 7.3 (6.3-8.2) g/dL Albumin 4.3 (3.5-5.0) g/dL Influenza Type A Ag NEGATIVE (NEGATIVE) Influenza Type B Ag NEGATIVE (NEGATIVE) RSV (PCR) NEGATIVE (Negative) Group A Strep Antibody NEGATIVE (NEGATIVE) - Progress Progress: improved Air Movement: good Blood Culture(s) Obtained: Yes Antibiotics given: Yes Counseled pt/family regarding: lab results, diagnosis, need for follow-up, rad results - Departure Departure Disposition: Home Clinical Impression: Right middle lobe pulmonary infiltrate, Hypokalemia due to loss of potassium Condition: Stable Critical Care Time: No Referrals: MERRILL HAYES [Primary Care Provider] - Instructions: Pneumonia in Adults, Community-Acquired Pneumonia, Adult (DC) Additional Instructions: Discharge/Care Plan ROSA HOLGUIN was seen on 05/18/19 in the Emergency Room. The patient was counseled regarding Diagnosis,Lab results, Imaging studies, need for follow up and when to return to the Emergency Room. Prescriptions given: Discharge Note I have spoken with the patient and/or caregivers. I have explained the patient' s condition, diagnosis and treatment plan based on the information available to me at this time. I have answered the patient's and/or caregiver's questions and addressed any concerns. The patient and/or caregivers have as good understanding of the patient's diagnosis, condition and treatment plan as can be expected at this point. The vital signs have been stable. The patient's condition is stable and appropriate for discharge from the emergency department. The patient will pursue further outpatient evaluation with the primary care physician or other designated or consulting physician as outlined in the discharge instructions. The patient and/or caregivers are agreeable to this plan of care and follow-up instructions have been explained in detail. The patient and/or caregivers have received these instruction. The patient/and or caregivers are aware that any significant change in condition or worsening of symptoms should prompt an immediate return to this or the closest emergency department or call 911. ROSA HOLGUIN was seen on 05/18/19 n the Emergency Room. At that time you were treated for an emergent condition, during your visit Laboratory, Radiology and/or other procedures may have been ordered. It is very important that you follow-up with your Primary Care Physician MERRILL HAYES within the next 24-48 hours to review your Emergency Room visit and the final results of testing that was ordered. Some test results such as Urine Cultures, Blood Cultures, and other cultures if ordered will not be finalized for 24-48 hours. If you do not have a Primary Care Provider please call the medical records department at [phone] ext [phone] to obtain a copy of your results or you may sign into our patient portal to obtain these results by visiting us @ [email or web address] and completing the following steps: 1. Click on the Patient Portal link 2. Click the Patient Self Enrollment Link to complete the enrollment form and entering your 3. Once the enrollment form is completed you will receive an email with a temporary ID and password at the email address you provided. 4. Next choose a user name and password. Your user name must be at least 4 characters long and your password must be at least 4 characters long. 5. Choose a security question from the list and provide your answer to the question. If you already have signed into the Health Portal you may access your Health Care Information 12/03 by the following steps: 1. Login to our website @ [email or web address] 2. Enter your original user name and password. FAQS The [facility] Health Portal is an online tool that contains your Lab Results, Radiology Reports, Visit History, Discharge Instructions and Health Summary Lab and Radiology Results will not be available for 72 hours on the portal. The Portal is a secure site, passwords are encryted and URLs are re-written so they cannot be copied and pasted. You and authorized family members are the only ones who can access your Portal. Also there is a timeout feature that protects your information if you leave the Portal page open. If you have technical difficulty please use the Contact Us link on the page this will allow you to submit any questions you have regarding the Portal or you may contact the Medical Record Department at [phone]. Forms: Work/School Release Form Prescriptions: Levofloxacin [Levaquin 500 MG Tablet] 500 mg PO QAM #10 tablet
[2019-05-18 12:51] LABS: Absolute Neutrophil Ct (ANC) 7.22 (1.4-6.9); BASOPHIL % 0.1 % (0.0-0.4); Basophil (Absolute #) 0.01 (0-0.4); Eosinophil % 0.1 % (0.00-5.0); Eosinophil (Absolute #) 0.01 (0-0.5); Hematocrit 34.8 % (35-47); Hemoglobin 11.2 gm/dl (12.0-16.0); Lymphocyte (Absolute #) 0.59 (1.0-4.6); Lymphocytes % 7.1 % (24.0-44.0); Mean Cell Volume 84.1 fl (78-100); Mean Corpuscular Hgb Concent. 32.2 g/dl (32-36); Mean Platelet Volume 8.5 fl (6-9.5); Monocyte (Absolute #) 0.48 (0.0-1.3); Monocytes % 5.8 % (0.0-12.0); Neutrophil % 86.9 % (36.0-66.0); Platelet Count 351 K/mm3 (150-450); Red Blood Count 4.14 M/mm3 (4.1-5.4); Red Cell Distribution Width 14.6 % (11.5-14.0); White Blood Count 8.3 K/mm3 (4.0-10.5)
[2019-05-18] MEDS ORDERED: Zithromax 500 MG/ 250 ML NaCl Premix 500 MG/250 ML IVPB IV STA (13:06)
[2019-05-18] MEDS ORDERED: ROCEPHIN 1 Gm-D5w 50 ml Bag** 1 G/50 ML IVPB IV STA (13:10)
[2019-05-18] MEDS ORDERED: Zithromax 500 MG/ 250 ML NaCl Premix 500 MG/250 ML IVPB IV ONE (13:13)
[2019-05-18] MEDS ORDERED: ROCEPHIN 1 Gm-D5w 50 ml Bag** 1 G/50 ML IVPB IV ONE (13:13)
[2019-05-18 13:14] LABS: ALBUMIN 4.3 g/dL (3.5-5.0); ALKALINE PHOSPHATASE 74 U/L (38-126); ANION GAP 18.6 MEQ/L (5-15); BLOOD UREA NITROGEN 9 mg/dL (7-17); CHLORIDE 100 mmol/L (98-107); Calcium 9.5 mg/dL (8.4-10.2); Carbon Dioxide 26 mmol/L (22-30); Creatinine 1 0.57 mg/dL (0.52-1.04); Glucose 106 mg/dL (74-106); Potassium 3.1 mmol/L (3.5-5.1); SGOT/AST 15 U/L (14-36); SGPT/ALT 26 U/L (0-35); SODIUM 141 mmol/L (137-145); Total Protein 7.3 g/dL (6.3-8.2)
[2019-05-18 13:24] LABS: Group A Strep NEGATIVE (NEGATIVE); INFLUENZA A NEGATIVE (NEGATIVE); INFLUENZA B NEGATIVE (NEGATIVE); RESPIRATORY SYNCTIAL VIRUS NEGATIVE (Negative)
[2019-05-18 14:38] VITALS: BP 125/78; PULSE 107; O2SAT 95
[2019-05-18] MEDS ORDERED: MOTRIN 400 MG PO ONE (14:52)
[2019-05-18] MEDS ORDERED: MOTRIN 400 MG ONE (14:54)
[2019-05-18] MEDS ORDERED: K-LYTE 25 MEQ PO ONE (15:02)
[2019-05-18] MEDS ORDERED: K-LYTE 25 MEQ ONE (15:04)
[2019-05-18 15:31] LABS: Slide Review 1 YES
--- NOTE | 2019-05-18 20:04 | XRAY ---
Indication: Cough and short of breath. Comparison: December 20, 2018. PA/lateral chest now demonstrates subtle patchy right upper lung infiltrate/atelectasis and lingula subsegmental atelectasis/scarring. Remaining heart and lungs unremarkable. Bony thorax intact.
== END 2019-05-18 15:13 | disposition home or self-care (01) ==
LOC: ED 12:07
DX: R91.8 Other nonspecific abnormal finding of lung field (principal); E87.6 Hypokalemia
CPT/HCPCS: 36415; 71046; 80053; 85025; 87040; 87631; 87651; 94150; 94640; 94760; 96360; 96365; 96367; 99284; J0456; J0696; A9270-GY

== ENCOUNTER 2020-01-14 06:18 | Day surgery (SDC) | payer OTHER ==
[2020-01-14] MEDS ORDERED: Lactated Ringers 1,000 ML IV SCH (06:30)
[2020-01-14] MEDS ORDERED: Lactated Ringers 1,000 ML IV ONE ×2 (07:06→08:29)
[2020-01-14] MEDS ORDERED: DIPRIVAN 200 MG/20 ML IV ONE ×4 (07:42→08:44)
[2020-01-14] MEDS ORDERED: Ketamine HCl 50 MG/ML ONE (07:43)
[2020-01-14 09:30] VITALS: O2SAT 100
[2020-01-14 09:58] VITALS: BP 122/72; PULSE 87
--- NOTE | 2020-01-14 10:38 | OP ---
SURGERY DATE/TIME: 01/14/2020 0802 PREOPERATIVE DIAGNOSES: 1) Dysphagia. 2) Diarrhea. POSTOPERATIVE DIAGNOSES: 1) Normal EGD. 2) Colon polyps x2. PROCEDURES: 1) EGD. 2) Colonoscopy. SURGEON: Raj Guadalupe M.D. ANESTHESIA: MAC by Tom Rasmussen CRNA. ESTIMATED BLOOD LOSS: Minimal. SPECIMENS: 1) Two cold forceps biopsies from the duodenum sent for celiac testing. 2) Hot forceps polypectomy from the cecum. 3) Hot snare polypectomy from the ascending colon. DESCRIPTION OF PROCEDURE: After informed written consent was obtained, the patient was taken to the endoscopy suite. She was placed in the left lateral decubitus position and a bite block was inserted. The endoscope was inserted in the posterior oropharynx and under direct visualization the esophagus was traversed. There were no obvious strictures or areas of narrowing. The mucosa in the esophagus appeared normal. The gastroesophageal junction likewise appeared normal. The gastric cavity had a normal rugated gastric mucosa. No lesions or defects. Pylorus was traversed and the first and second portions of the duodenum appeared within normal limits. Two cold forceps were taken from the duodenum and sent for celiac testing. Upon withdrawal again the mucosal structures appeared normal. The scope was removed and the scopes were switched. Digital rectal exam showed normal sphincter tone and no internal lesions. The scope was then inserted in the rectum and sequentially the entire colonic mucosa was traversed. The level of cecum was reached and verified with direct visualization of ileocecal valve. There was a small sessile polyp in the cecal region which was grasped with forceps and cauterized at the base and removed in its entirety. There was also another sessile polyp present in the proximal ascending colon which initially was attempted to be removed with forceps with difficulty. Snare was eventually used with cautery. It was grasped at the base. The entire lesion appeared to be removed with good cauterization. It was retrieved and sent for pathology testing. Upon withdrawal no other obvious mucosal abnormalities were encountered. Prior to withdrawal retroflexion was performed and showed no internal lesions. The scope was removed and the patient was transferred to the recovery room in good condition.
== END 2020-01-14 10:06 | disposition home or self-care (01) ==
LOC: SDC 06:18
PROVIDERS: ATTEND Family Medicine
DX: R13.10 Dysphagia, unspecified (principal); D12.2 Benign neoplasm of ascending colon; D12.0 Benign neoplasm of cecum; R19.7 Diarrhea, unspecified; E11.9 Type 2 diabetes mellitus without complications; I10 Essential (primary) hypertension; Z79.899 Other long term (current) drug therapy
CPT/HCPCS: 82962; 88305; J2704

== ENCOUNTER 2021-01-03 16:07 | Emergency (ER) | payer OTHER ==
[2021-01-03] MEDS ORDERED: TORAdol 30 mg Injection IV ONE (17:05)
--- NOTE | 2021-01-03 17:12 | ERPHSYRPT ---
- History of Present Illness Historian: patient Patient Subjective Stated Complaint: Abdominal pain Triage Nursing Assessment: Patient ambulated back to ED and transferred self to bed. Patient A+O X3. Patient's skin pink, warm and dry. Patient complains of right lower abdominal/back pain that started at 1100. Patient states pain is 7/10 intermittent sharp with constant burning pain. Abdomen soft and round with BS X 4. Physician History: 45 yo wf w RLQ pain x6hr. Pain rated 7/10,worse w movement, and described as sharp/burning. Pt also has mild R flank pain/subjective fever/nausea but denies dysuria/hematuria/vomiting. She still has her AP/Gb but has had a RUBEN. Timing/Duration: today (5hrs) Quality: burning, sharpness Abdominal Pain Onset Location: RLQ, flank Pain Radiation: flank Severity of Pain-Max: moderate Severity of Pain-Current: moderate Modifying Factors: Improves With: movement Associated Symptoms: back Previous symptoms: no prior history Allergies/Adverse Reactions: latex Allergy (Severe, Verified 01/03/21 16:18) penicillin G Allergy (Intermediate, Verified 01/03/21 16:18) Hives Penicillins Allergy (Unknown, Verified 01/03/21 16:18) Home Medications: Albuterol Sulfate [Proventil] 2.5 mg IH DAILY PRN PRN 10/13/12 [History] Montelukast Sodium 10 mg [Singulair 10 MG] 10 mg PO HS 10/13/12 [History] Pravastatin Sodium 10 mg PO HS 10/06/14 [History] Metoprolol Succinate [Toprol Xl] 100 mg PO BID 01/19/17 [History] Fluticasone/Salmeterol 230/21* [Advair Hfa 230/21 Mcg MDI] 2 puff IH BIDRT 04/05/17 [History] Furosemide 40 mg [Lasix 40 MG] 40 mg PO DAILY PRN PRN 04/05/17 [History] Liraglutide [Victoza 2-Glenn] 1.2 mg SQ DAILY 04/05/17 [History] Losartan Potassium 100 mg PO DAILY 04/05/17 [History] Metformin HCl [Metformin ER Osmotic] 500 mg PO BID 04/05/17 [History] Omeprazole 20 MG [Prilosec 20 mg] 20 mg PO DAILY 04/05/17 [History] Diltiazem HCl 120 mg [Cardizem CD 120 MG] 120 mg PO DAILY 07/08/18 [History] Paroxetine HCl 20 mg [Paxil 20 MG] 40 mg PO DAILY 07/08/18 [History] Hydrocodone/APAP 10/325 mg [[place] 10/325 MG TableT] 1 tab PO TIDPRN PRN 01/08/20 [History] Nitroglycerin 0.4 mg Tablet [Nitrostat 0.4 MG Tablet] 0.4 mg SL UD 01/08/20 [History] Hx Tetanus, Diphtheria Vaccination/Date Given: Yes Hx Influenza Vaccination/Date Given: Yes Hx Pneumococcal Vaccination/Date Given: No Immunizations Up to Date: Yes Travel Risk - International Travel Have you traveled outside of the country in past 3 weeks: No - Coronavirus Screening Are you exhibiting any of the following symptoms?: No Close contact with a COVID-19 positive Pt in past 14-21 Days: No - Vaccine Status Have you recieved a Covid-19 vaccination: Yes Data Network [employer]: [employer] - Vaccination Dates Date of 2cond Vaccination (if applicable): 08/24/2020 - Review of Systems Constitutional: No Symptoms, Fever Eyes: No Symptoms Ears, Nose, & Throat: No Symptoms Respiratory: No Symptoms Cardiac: No Symptoms Abdominal/Gastrointestinal: Abdominal Pain, Nausea, Diarrhea, No Vomiting, No Constipation, No Hematemesis, No Hematochezia, No Melena, No Dysphagia, No Appetite Changes Genitourinary Symptoms: No Symptoms Musculoskeletal: No Symptoms Skin: No Symptoms Neurological: No Symptoms Psychological: No Symptoms Endocrine: No Symptoms Hematologic/Lymphatic: No Symptoms Immunological/Allergic: No Symptoms - Past Medical History Pertinent Past Medical History: Yes Neurological History: No Pertinent History ENT History: No Pertinent History Cardiac History: Hypertension Respiratory History: Asthma Endocrine Medical History: No Pertinent History Musculoskeletal History: Other GI Medical History: No Pertinent History History: Other Psycho-Social History: No Pertinent History Female Reproductive Disorders: No Pertinent History, Fibroids Other Medical History: CATIE BUNIONECTOMY, STRESS FX LEFT FOOT, CHOLECYSTECTOMY, C-SECTIONS, HYSTERECTOMY, TONSILLECTOMY, Anemia - Past Surgical History Past Surgical History: Yes Neuro Surgical History: No Pertinent History Cardiac: No Pertinent History Respiratory: No Pertinent History Gastrointestinal: Cholecystectomy Genitourinary: No Pertinent History Musculoskeletal: Orthopedic Surgery, Other Female Surgical History: Hysterectomy, Section Other Surgical History: tonsils, Bilateral feet-bunionectomy , screws to catie 2nd toes. - Social History Smoking Status: Never smoker Exposure to second hand smoke: No Drug Use: none Patient Lives Alone: No Significant Family History: diabetes, hypertension - Female History Hx Last Menstrual Period: hysterectomy Hx Now: No - Nursing Vital Signs Nursing Vital Signs: Initial Vital Signs Temperature 98.4 F 01/03/21 16:18 Pulse Rate 78 01/03/21 16:18 Respiratory Rate 18 01/03/21 16:18 Blood Pressure 127/82 01/03/21 16:18 O2 Sat by Pulse Oximetry 98 01/03/21 16:18 Pain Scale Pain Intensity 0 - Physical Exam General Appearance: no apparent distress Eye Exam: PERRL/EOMI, eyes nml inspection Ears, Nose, Throat Exam: normal ENT inspection, TMs normal, pharynx normal, moist mucous membranes Neck Exam: normal inspection, non-tender, supple, full range of motion, No meningismus, No mass, No Brudzinski, No Kernig's Respiratory Exam: normal breath sounds, lungs clear, airway intact, No respiratory distress Cardiovascular Exam: regular rate/rhythm, normal heart sounds, No murmur Gastrointestinal/Abdomen Exam: soft (Good BS/Soft/RLQ TTP w rebound) Back Exam: normal inspection, normal range of motion, No CVA tenderness Extremity Exam: normal inspection, normal range of motion Neurologic Exam: alert, oriented x 3, cooperative, 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, normal mood/affect Skin Exam: normal color, warm, dry Lymphatic Exam: No adenopathy SpO2 Interpretation: normal SpO2: 98 O2 Delivery: Room Air - Course Nursing assessment & vital signs reviewed: Yes - CT Exams Abdomen/Pelvis CT Interpretation: Discussed w/radiologist (AFSHIN/Robi wnl) - Radiology Ultrasound Exam Pelvis Ultrasound: Other (Neg per tech) Ordered Tests: Active Orders 24 hr Category Date Time Status ABDOMEN AND PELVIS W CONTRAST [CT] Stat Exams 01/03/21 18:03 Taken PELVIC [US] Stat Exams 01/03/21 19:18 Taken AMYLASE Stat Lab 01/03/21 17:06 Completed CBC W DIFF Stat Lab 01/03/21 17:06 Completed CMP Stat Lab 01/03/21 17:06 Completed LIPASE Stat Lab 01/03/21 17:06 Completed UA W/RFX UR CULTURE Stat Lab 01/03/21 17:06 Completed Medication Summary Discontinued Medications Generic Name Dose Route Start Last Admin Trade Name Igor PRN Reason Stop Dose Admin Fentanyl Citrate 50 mcg 01/03/21 18:02 01/03/21 18:06 Sublimaze 100 Mcg/2 Ml IV 01/03/21 18:03 50 mcg STAT ONE Administration Fentanyl Citrate Confirm 01/03/21 18:04 Sublimaze 100 Mcg/2 Ml Administered 01/03/21 18:05 Dose 100 mcg .ROUTE .STK-MED ONE Hydromorphone HCl 1 mg 01/03/21 19:18 01/03/21 19:25 Hydromorphone 1 Mg/Ml Injection IV 01/03/21 19:19 1 mg STAT ONE Administration Hydromorphone HCl Confirm 01/03/21 19:23 Hydromorphone 1 Mg/Ml Injection Administered 01/03/21 19:24 Dose 1 mg .ROUTE .STK-MED ONE Ketorolac Tromethamine 30 mg 01/03/21 17:05 01/03/21 17:20 Toradol 30 Mg Injection IV 01/03/21 17:06 30 mg STAT ONE Administration Ketorolac Tromethamine Confirm 01/03/21 17:15 Toradol 30 Mg Injection Administered 01/03/21 17:16 Dose 30 mg .ROUTE .STK-MED ONE Ondansetron HCl 4 mg 01/03/21 18:03 01/03/21 18:06 Zofran 4 Mg/2 Ml Vial IV 01/03/21 18:04 4 mg STAT ONE Administration Ondansetron HCl Confirm 01/03/21 18:04 Zofran 4 Mg/2 Ml Vial Administered 01/03/21 18:05 Dose 4 mg .ROUTE .STK-MED ONE Lab/Rad Data: Laboratory Result Diagrams 01/03/21 17:06 01/03/21 17:06 Laboratory Results 01/03/21 01/03/21 01/03/21 Range/Units 17:06 17:06 17:06 WBC 5.8 (4.0-10.5) K/mm3 RBC 4.98 (4.1-5.4) M/mm3 Hgb 12.5 (12.0-16.0) gm/dl Hct 40.7 (35-47) % MCV 81.7 (78-100) fl MCH 25.1 L (26-32) pg MCHC 30.7 L (32-36) g/dl RDW 14.7 H (11.5-14.0) % Plt Count 478 H (150-450) K/mm3 MPV 9.5 (7.5-11.0) fl Gran % 70.3 H (36.0-66.0) % Eos # (Auto) 0.01 (0-0.5) Absolute Lymphs (auto) 1.35 (1.0-4.6) Absolute Monos (auto) 0.35 (0.0-1.3) Lymphocytes % 23.3 L (24.0-44.0) % Monocytes % 6.0 (0.0-12.0) % Eosinophils % 0.2 (0.00-5.0) % Basophils % 0.2 (0.0-0.4) % Absolute Granulocytes 4.08 (1.4-6.9) Basophils # 0.01 (0-0.4) Sodium 139 (137-145) mmol/L Potassium 3.4 L (3.5-5.1) mmol/L Chloride 100 (98-107) mmol/L Carbon Dioxide 27 (22-30) mmol/L Anion Gap 15.3 H (5-15) MEQ/L BUN 6 L (7-17) mg/dL Creatinine 0.60 (0.52-1.04) mg/dL Estimated GFR > 60.0 ML/MIN Glucose 90 (74-106) mg/dL Calcium 9.7 (8.4-10.2) mg/dL Total Bilirubin 0.60 (0.2-1.3) mg/dL AST 21 (14-36) U/L ALT 16 (0-35) U/L Alkaline Phosphatase 90 (38-126) U/L Serum Total Protein 8.0 (6.3-8.2) g/dL Albumin 4.9 (3.5-5.0) g/dL Amylase 43 (30-110) U/L Lipase 48 (23-300) U/L Urine Color YELLOW (YELLOW) Urine Appearance SLIGHTLY CLOUDY (CLEAR) Urine pH 6.0 (5-6) Ur Specific [place] 1.010 (1.005-1.025) Urine Protein NEGATIVE (Negative) Urine Ketones NEGATIVE (NEGATIVE) Urine Blood NEGATIVE (0-5) [place]/ul Urine Nitrite NEGATIVE (NEGATIVE) Urine Bilirubin NEGATIVE (NEGATIVE) Urine Urobilinogen NEGATIVE (0-1) mg/dL Ur Leukocyte Esterase NEGATIVE (NEGATIVE) Urine WBC (Auto) NONE (0-5) /HPF Urine RBC (Auto) NONE (0-2) /HPF U Epithel Cells (Auto) RARE (FEW) /HPF Urine Bacteria (Auto) NONE (NEGATIVE) /HPF Urine Mucus (Auto) SLIGHT (NEGATIVE) /HPF Urine Culture Reflexed NO (NO) Urine Glucose NEGATIVE (NEGATIVE) mg/dL - Progress Progress: improved Progress Note: 01/03/21 19:50 30mg IV Toradol w minimal improvement 50umg IV Fentanyl/4mg IV Zofran w mild improvement 1mg IV dilaudid w marked improvement Counseled pt/family regarding: lab results, diagnosis, need for follow-up, rad results - Departure Departure Disposition: Home Clinical Impression: Abdominal pain Condition: Stable Critical Care Time: No Referrals: MERRILL DOW [Primary Care Provider] - Instructions: Acute Abdomen (Belly Pain), Adult (DC) Additional Instructions: Return to ER for increasing pain or temperature greater than 100.5 Follow up with family
[2021-01-03 17:14] LABS: Absolute Neutrophil Ct (ANC) 4.08 (1.4-6.9); BASOPHIL % 0.2 % (0.0-0.4); Basophil (Absolute #) 0.01 (0-0.4); Eosinophil % 0.2 % (0.00-5.0); Eosinophil (Absolute #) 0.01 (0-0.5); Hematocrit 40.7 % (35-47); Hemoglobin 12.5 gm/dl (12.0-16.0); Lymphocyte (Absolute #) 1.35 (1.0-4.6); Lymphocytes % 23.3 % (24.0-44.0); Mean Cell Volume 81.7 fl (78-100); Mean Corpuscular Hemoglobin 25.1 pg (26-32); Mean Corpuscular Hgb Concent. 30.7 g/dl (32-36); Mean Platelet Volume 9.5 fl (7.5-11.0); Monocyte (Absolute #) 0.35 (0.0-1.3); Neutrophil % 70.3 % (36.0-66.0); Platelet Count 478 K/mm3 (150-450); Red Blood Count 4.98 M/mm3 (4.1-5.4); Red Cell Distribution Width 14.7 % (11.5-14.0); White Blood Count 5.8 K/mm3 (4.0-10.5)
[2021-01-03] MEDS ORDERED: TORAdol 30 mg Injection ONE (17:15)
[2021-01-03 17:27] LABS: ALBUMIN 4.9 g/dL (3.5-5.0); ALKALINE PHOSPHATASE 90 U/L (38-126); AMYLASE 43 U/L (30-110); ANION GAP 15.3 MEQ/L (5-15); BLOOD UREA NITROGEN 6 mg/dL (7-17); CHLORIDE 100 mmol/L (98-107); Calcium 9.7 mg/dL (8.4-10.2); Carbon Dioxide 27 mmol/L (22-30); EST GLOMERULAR FILTRATION RATE > 60.0 ML/MIN; Glucose 90 mg/dL (74-106); LIPASE 48 U/L (23-300); Potassium 3.4 mmol/L (3.5-5.1); SGOT/AST 21 U/L (14-36); SGPT/ALT 16 U/L (0-35); SODIUM 139 mmol/L (137-145)
[2021-01-03 17:54] LABS: Appearance SLIGHTLY CLOUDY (CLEAR); Bilirubin NEGATIVE (NEGATIVE); Blood NEGATIVE Ery/ul (0-5); Epithelial Cells RARE /HPF (FEW); Glucose NEGATIVE (NEGATIVE); Ketones NEGATIVE (NEGATIVE); Leukocyte Esterase NEGATIVE (NEGATIVE); Mucus SLIGHT /HPF (NEGATIVE); Nitrite NEGATIVE (NEGATIVE); Protein,Urine Dip NEGATIVE (Negative); Urobilinogen NEGATIVE mg/dL (0-1)
[2021-01-03] MEDS ORDERED: SUBLIMAZE 100 MCG/2 ML IV ONE (18:02)
[2021-01-03] MEDS ORDERED: Zofran 4 MG/2 ML VIAL IV ONE (18:03)
[2021-01-03] MEDS ORDERED: Zofran 4 MG/2 ML VIAL ONE (18:04)
[2021-01-03] MEDS ORDERED: SUBLIMAZE 100 MCG/2 ML ONE (18:04)
[2021-01-03] MEDS ORDERED: Hydromorphone 1 mg/ml Injection IV ONE (19:18)
[2021-01-03] MEDS ORDERED: Hydromorphone 1 mg/ml Injection ONE (19:23)
[2021-01-03 20:28] VITALS: BP 128/80; PULSE 77
[2021-01-04 00:57] VITALS: O2SAT 98
--- NOTE | 2021-01-04 08:42 | XRAY ---
Indication: Right lower quadrant pain. Multiple contiguous axial images obtained through the abdomen and pelvis using 80 cc Isovue 370 contrast. Comparison: CT renal stone study November 22, 2017. Lung bases demonstrates minimal dependent atelectasis without infiltrate or effusion. Heart not enlarged. Noncontrasted stomach and bowel loops are nonobstructed with normal appendix. Again cholecystectomy and partial hysterectomy. Stable 4 mm left lobe hepatic cyst. 1.7 cm left ovary cyst. No free fluid/air. Remaining liver, pancreas, spleen, adrenal glands, kidneys, ureters, bladder, and aorta are unremarkable. No pathologic retroperitoneal lymphadenopathy. Osseous structures intact with new mild L2-L3 degenerative disc disease. No ventral or inguinal hernias. Impression: 1. Stable tiny hepatic cyst. Incidental dominant left ovary cyst and L2-L3 degenerative changes. 2. Remaining CT abdomen/pelvis with contrast exam is negative.
--- NOTE | 2021-01-04 08:44 | XRAY ---
Indication: Right lower quadrant pain. Partial hysterectomy. Two-dimensional transabdominal pelvic sonogram performed. Comparison: October 28, 2020. Uterus and both ovaries are not visualized. No suspicious solid/cystic pelvic mass or free fluid. Images of urinary bladder document bilateral ureteral jets. Comment: Preliminary report was given.
== END 2021-01-03 20:28 | disposition home or self-care (01) ==
LOC: ED 16:07
DX: R10.9 Unspecified abdominal pain (principal)
CPT/HCPCS: 36000; 36415; 74177; 76856; 80053; 81001; 82150; 83690; 85025; 96374; 96375; 99284; J1170; J1885; J2405; J3010

== ENCOUNTER 2021-01-07 15:41 | Observation (INO) | payer OTHER ==
[2021-01-07] MEDS ORDERED: Zofran 4 MG/2 ML VIAL IV PRN (17:09)
[2021-01-07] MEDS ORDERED: Sodium Chloride 0.9% 1000 ML 1,000 ML IV SCH (17:15)
[2021-01-07 17:50] LABS: Absolute Neutrophil Ct (ANC) 4.07 (1.4-6.9); BASOPHIL % 0.5 % (0.0-0.4); Basophil (Absolute #) 0.03 (0-0.4); Eosinophil (Absolute #) 0.06 (0-0.5); Hematocrit 35.4 % (35-47); Hemoglobin 10.9 gm/dl (12.0-16.0); Lymphocyte (Absolute #) 1.52 (1.0-4.6); Lymphocytes % 24.8 % (24.0-44.0); Mean Cell Volume 81.8 fl (78-100); Mean Corpuscular Hemoglobin 25.2 pg (26-32); Mean Corpuscular Hgb Concent. 30.8 g/dl (32-36); Mean Platelet Volume 8.9 fl (7.5-11.0); Monocyte (Absolute #) 0.45 (0.0-1.3); Monocytes % 7.3 % (0.0-12.0); Neutrophil % 66.4 % (36.0-66.0); Platelet Count 403 K/mm3 (150-450); Red Blood Count 4.33 M/mm3 (4.1-5.4); Red Cell Distribution Width 14.3 % (11.5-14.0); White Blood Count 6.1 K/mm3 (4.0-10.5)
[2021-01-07] MEDS ORDERED: MEFOXIN 1 Gm/ D5W 50 Ml** 1 G/50 ML ML IV SCH (18:00)
[2021-01-07 18:04] LABS: ALBUMIN 4.2 g/dL (3.5-5.0); ALKALINE PHOSPHATASE 87 U/L (38-126); ANION GAP 12.9 MEQ/L (5-15); BLOOD UREA NITROGEN 10 mg/dL (7-17); CHLORIDE 101 mmol/L (98-107); Calcium 9.1 mg/dL (8.4-10.2); Carbon Dioxide 26 mmol/L (22-30); Creatinine 1 0.73 mg/dL (0.52-1.04); EST GLOMERULAR FILTRATION RATE > 60.0 ML/MIN; Glucose 121 mg/dL (74-106); Potassium 3.4 mmol/L (3.5-5.1); SGOT/AST 13 U/L (14-36); SGPT/ALT 13 U/L (0-35); SODIUM 137 mmol/L (137-145); Total Protein 6.9 g/dL (6.3-8.2)
[2021-01-07] MEDS ORDERED: CEFOXITIN IV ONE (18:18)
[2021-01-07] MEDS ORDERED: Lactated Ringers 1,000 ML IV ONE ×2 (18:18→18:55)
[2021-01-07 18:27] LABS: INFLUENZA A NEGATIVE (NEGATIVE); INFLUENZA B NEGATIVE (NEGATIVE); RESPIRATORY SYNCTIAL VIRUS NEGATIVE (Negative)
[2021-01-07] MEDS ORDERED: Sensorcaine 0.25% 10 ML ONE (18:55)
[2021-01-07] MEDS ORDERED: Levofloxacin 500MG/100ML D5W 500 MG/100 ML BAG IV ONE (19:27)
[2021-01-07] MEDS ORDERED: CLINDAMYCIN-D5W 900 MG/50 ML*** 900 MG/50 ML BAG IV ONE (19:27)
[2021-01-07] MEDS ORDERED: Zemuron 100 MG/10 ML ONE (19:29)
[2021-01-07] MEDS ORDERED: Versed 2 MG/2 ML Injection ONE (19:29)
[2021-01-07] MEDS ORDERED: Quelicin Fliptop 200 MG/10 ML ONE (19:29)
[2021-01-07] MEDS ORDERED: DIPRIVAN 200 MG/20 ML IV ONE (19:29)
[2021-01-07] MEDS ORDERED: SUBLIMAZE 250 MCG/5 ML ONE (19:30)
[2021-01-07] MEDS ORDERED: Zofran 4 MG/2 ML VIAL ONE (20:12)
[2021-01-07] MEDS ORDERED: BRIDION 200MG/2ML IV ONE (20:12)
[2021-01-07] MEDS ORDERED: SUBLIMAZE 100 MCG/2 ML ONE ×2 (20:25→20:50)
[2021-01-07] MEDS ORDERED: Hydromorphone 1 mg/ml Injection ONE (21:01)
[2021-01-07] MEDS: MORPHINE SULFATE 4 MG INJ IV PRN (21:45)
[2021-01-07] MEDS ORDERED: Dextrose 5% -0.45 NaCl 1000 ML 1,000 ML IV SCH (22:15)
[2021-01-07 22:46] LABS: Appearance CLEAR (CLEAR); Bilirubin NEGATIVE (NEGATIVE); Blood NEGATIVE Ery/ul (0-5); Glucose NEGATIVE (NEGATIVE); Hyaline Casts 0-2 /LPF (0-2); Ketones NEGATIVE (NEGATIVE); Leukocyte Esterase NEGATIVE (NEGATIVE); Mucus SLIGHT /HPF (NEGATIVE); Nitrite NEGATIVE (NEGATIVE); Protein,Urine Dip NEGATIVE (Negative); Specific Gravity 1.023 (1.005-1.025); Urobilinogen NEGATIVE mg/dL (0-1)
[2021-01-07] MEDS ORDERED: Zocor 10MG PO SCH (23:00)
[2021-01-07] MEDS ORDERED: Singulair 10 MG PO SCH (23:00)
[2021-01-07] MEDS: Toprol Xl 100 MG PO SCH (23:26)
[2021-01-08] MEDS ORDERED: VENTOLIN COMMON CANISTER IH PRN (00:16)
[2021-01-08] MEDS: NORCO 5/325 MG PO PRN ×2 (01:48→09:19)
[2021-01-08] MEDS: MORPHINE SULFATE 4 MG INJ IV PRN (04:04)
[2021-01-08] MEDS ORDERED: Advair Hfa 230/21 Mcg COMMON CANISTER IH SCH (07:00)
[2021-01-08 07:07] LABS: Absolute Neutrophil Ct (ANC) 4.58 (1.4-6.9); BASOPHIL % 0.2 % (0.0-0.4); Basophil (Absolute #) 0.01 (0-0.4); Eosinophil % 1.1 % (0.00-5.0); Eosinophil (Absolute #) 0.07 (0-0.5); Hematocrit 32.2 % (35-47); Hemoglobin 9.7 gm/dl (12.0-16.0); Lymphocyte (Absolute #) 1.27 (1.0-4.6); Lymphocytes % 20.2 % (24.0-44.0); Mean Cell Volume 83.4 fl (78-100); Mean Corpuscular Hemoglobin 25.1 pg (26-32); Mean Corpuscular Hgb Concent. 30.1 g/dl (32-36); Mean Platelet Volume 8.7 fl (7.5-11.0); Monocyte (Absolute #) 0.37 (0.0-1.3); Monocytes % 5.9 % (0.0-12.0); Neutrophil % 72.6 % (36.0-66.0); Platelet Count 311 K/mm3 (150-450); Red Blood Count 3.86 M/mm3 (4.1-5.4); Red Cell Distribution Width 14.3 % (11.5-14.0); White Blood Count 6.3 K/mm3 (4.0-10.5)
[2021-01-08 07:24] LABS: ALBUMIN 3.8 g/dL (3.5-5.0); ALKALINE PHOSPHATASE 68 U/L (38-126); ANION GAP 10.5 MEQ/L (5-15); BLOOD UREA NITROGEN 9 mg/dL (7-17); CHLORIDE 101 mmol/L (98-107); Calcium 8.3 mg/dL (8.4-10.2); Carbon Dioxide 27 mmol/L (22-30); Creatinine 1 0.67 mg/dL (0.52-1.04); EST GLOMERULAR FILTRATION RATE > 60.0 ML/MIN; Glucose 112 mg/dL (74-106); Potassium 3.5 mmol/L (3.5-5.1); SGOT/AST 24 U/L (14-36); SGPT/ALT 12 U/L (0-35); SODIUM 135 mmol/L (137-145)
[2021-01-08 08:11] VITALS: BP 108/52
[2021-01-08] MEDS ORDERED: Spiriva 18 Mcg/Cap Inhaler IH SCH (10:00)
[2021-01-08] MEDS ORDERED: Lasix 40 MG PO PRN (11:08)
[2021-01-08] MEDS ORDERED: HYDROCODONE-ACETAMIN 10-325 MG PO PRN (11:08)
[2021-01-08] MEDS ORDERED: PROVENTIL 2.5 MG/3 ML NEB IH PRN (11:08)
[2021-01-08] MEDS ORDERED: NON-FORMULARY ITEM (Ondansetron Hcl [Zofran] 4 MG) PO PRN (11:08)
[2021-01-08] MEDS ORDERED: METAXALONE 800 MG PO PRN (11:08)
[2021-01-08] MEDS ORDERED: Nitrostat 0.4 MG Tablet SL SCH (11:15)
[2021-01-08] MEDS ORDERED: DUPILUMAB 300 MG SQ SCH (11:15)
[2021-01-08] MEDS ORDERED: ZOFRAN ODT 4 MG PO PRN (11:22)
[2021-01-08] MEDS ORDERED: MEDICATION INTERVENTION PO SCH (11:30)
[2021-01-08] MEDS: Toprol Xl 100 MG PO SCH (11:31)
[2021-01-08 11:33] VITALS: PULSE 67; O2SAT 98
[2021-01-08] MEDS ORDERED: Flomax 0.4 MG PO SCH (12:00)
[2021-01-08] MEDS ORDERED: CLARITIN 10 MG PO SCH (12:00)
[2021-01-08] MEDS ORDERED: Paxil 20 MG PO SCH (12:00)
[2021-01-08] MEDS ORDERED: ECOTRIN 81 MG PO SCH (12:00)
[2021-01-08] MEDS ORDERED: Cozaar 50 MG PO SCH (12:00)
[2021-01-08] MEDS ORDERED: Cardizem CD 120 MG PO SCH (12:00)
[2021-01-08] MEDS ORDERED: MELOXICAM PO SCH (12:00)
[2021-01-08] MEDS ORDERED: Glucophage XR 500 MG PO SCH (12:00)
[2021-01-08] MEDS ORDERED: Protonix 40MG Tablet PO SCH (12:00)
[2021-01-08] MEDS ORDERED: MELOXICAM 7.5 MG PO SCH (22:00)
[2021-01-09] MEDS ORDERED: FEXOFENADINE HCL 30 MG PO SCH (10:00)
[2021-01-09] MEDS ORDERED: NON-FORMULARY ITEM (Losartan Potassium [Losartan Potassium] 100 MG) PO SCH (10:00)
[2021-01-09] MEDS ORDERED: NON-FORMULARY ITEM (Omeprazole 20 Mg [Prilosec 20 Mg] 20 MG) PO SCH (10:00)
[2021-01-09] MEDS ORDERED: NON-FORMULARY ITEM (Aspirin [Aspirin] 81 MG) PO SCH (10:00)
[2021-01-09] MEDS ORDERED: LIRAGLUTIDE 1.8 MG SQ SCH (10:00)
--- NOTE | 2021-01-10 15:35 | CONS ---
NOTE: This report was dictated under wrong physician number and work type. CONSULT DATE: 01/07/2021 REASON FOR CONSULT: Acute appendicitis. HISTORY: The patient is a 45 year-old female who had a positive CT scan for acute appendicitis. She was admitted by the primary care doctor and I was asked to see her in consultation for surgical evaluation and management. PAST MEDICAL HISTORY: Positive for hypertension. PAST SURGICAL HISTORY: She has had hysterectomy, cholecystectomy, knee surgery. REVIEW OF SYSTEMS: Negative for cardiovascular, neurologic or symptoms. PHYSICAL EXAMINATION: She is alert and oriented. HEENT: Pupils equal and normoreactive. NECK: Supple. COR: Regular rhythm. ABDOMEN: Tender in the right lower quadrant. EXTREMITIES: Within normal limits. No pedal edema. IMPRESSION: Acute appendicitis by clinical and radiological findings. PLAN: Proceed with laparoscopic appendectomy possible open.
--- NOTE | 2021-01-10 15:45 | OP ---
NOTE: This report was dictated under wrong physician number and work type. SURGERY DATE/TIME: 01/07/20211930 PREOPERATIVE DIAGNOSIS: Acute appendicitis. POSTOPERATIVE DIAGNOSIS: Acute appendicitis. PROCEDURE: Laparoscopic appendectomy. SURGEON: Kamlesh Mcgill M.D. ANESTHESIA: General. ESTIMATED BLOOD LOSS: Minimal. COMPLICATIONS: None. INDICATIONS: This 45 year-old diagnosed with acute appendicitis by clinical and radiological findings and taken to surgery for laparoscopic appendectomy. DESCRIPTION OF PROCEDURE AND FINDINGS: The patient was taken to the OR, placed on the operating table in supine position. The abdomen was prepped and draped in the usual sterile fashion. A small supraumbilical incision was made. The Veress needle was introduced. The abdomen was insufflated with CO2 and the trocar placed using the Visiport. The camera was introduced. The remaining ports placed under direct laparoscopic vision. The appendix was exposed. The mesoappendix was stapled with WES stapler and reload with blue cartridge was fired at the base of the appendix which was then removed. It was introduced into EndoCatch bag and then removed from the 12 mm trocar site without difficulty. After this was done the trocar was re-inserted. Hemostasis was inspected and when this was satisfactory. The pneumoperitoneum was released and the trocars removed. The 12 mm trocar site closed with 0 Vicryl for the fascia and 4-0 Vicryl to close the skin edges in subcuticular fashion. Dressing was applied. The patient tolerated the procedure well and was taken back to the recovery area in overall stable condition.
--- NOTE | 2021-01-11 13:13 | SSS ---
DISCHARGE DIAGNOSIS: ACUTE APPENDICITIS. CONSULTANTS: Dr. Kamlesh Mcgill OPERATIVE PROCEDURE: Laparoscopic appendectomy. HOSPITAL COURSE: The patient is a 45 year-old white female who developed abdominal pain and was found to have acute appendicitis. She was seen by Dr. Mcgill and had laparoscopic appendectomy performed. The patient has done well postoperatively and ready for discharge home on the morning 01/08/2021. LAB DATA AND TESTS: The patient's laboratory studies have shown COVID, influenza and RSV to be negative. She had initial white count of 6.1, hemoglobin 10.9, PLT count of 403,000. Metabolic panel showed sugar 121 nonfasting, BUN 10, creatinine 0.73. Potassium slightly low at 3.4. Liver enzymes were normal. UA was essentially normal. PHYSICAL EXAMINATION: The patient's current vital signs show the temperature to be 98.1F, pulse 77, respiratory rate 16 and blood pressure 131/65. O2 saturation 100%. HEENT: Normocephalic, atraumatic. Pupils equal round reactive to light. Extraocular movements intact. Oropharynx is pink and moist. NECK: Supple without lymphadenopathy, thyromegaly or JVD. CHEST: Clear to auscultation. HEART: Regular rate and rhythm. ABDOMEN: Shows the bandages in place from her recent surgery. EXTREMITIES: Without cyanosis, clubbing or edema. NEUROLOGIC: The patient is alert and oriented x3. She will be discharged home. She was given a prescription from Dr. Mcgill for [place] for pain control and she will follow him in the office in the next week.
== END 2021-01-08 13:54 | disposition home or self-care (01) ==
LOC: MED SURG 17:09
PROVIDERS: ADMIT Family Medicine; ATTEND Family Medicine
DX: K35.80 Unspecified acute appendicitis (principal); Z20.828 Contact with and (suspected) exposure to other viral communicable diseases; I10 Essential (primary) hypertension; E11.9 Type 2 diabetes mellitus without complications; J45.909 Unspecified asthma, uncomplicated; Z79.899 Other long term (current) drug therapy
CPT/HCPCS: 0241U; 36415; 44970; 80053; 81001; 82947; 85025; 87086; 94640; 94760; 94762; G0378; 99140; J0330; J0694; J1170; J1956; J2250; J2270; J2405; J2704; J3010; A9270-GY

== ENCOUNTER 2021-03-04 09:53 | Emergency (ER) | payer OTHER ==
[2021-03-04] MEDS ORDERED: TORAdol 30 mg Injection IV ONE (10:02)
[2021-03-04] MEDS ORDERED: TORAdol 30 mg Injection ONE (10:12)
[2021-03-04 10:17] LABS: Absolute Neutrophil Ct (ANC) 4.49 (1.4-6.9); BASOPHIL % 0.2 % (0.0-0.4); Basophil (Absolute #) 0.01 (0-0.4); Eosinophil % 1.5 % (0.00-5.0); Eosinophil (Absolute #) 0.09 (0-0.5); Hematocrit 40.1 % (35-47); Hemoglobin 12.3 gm/dl (12.0-16.0); Lymphocyte (Absolute #) 1.05 (1.0-4.6); Lymphocytes % 17.8 % (24.0-44.0); Mean Corpuscular Hemoglobin 26.7 pg (26-32); Mean Corpuscular Hgb Concent. 30.7 g/dl (32-36); Mean Platelet Volume 8.9 fl (7.5-11.0); Monocyte (Absolute #) 0.25 (0.0-1.3); Monocytes % 4.2 % (0.0-12.0); Neutrophil % 76.3 % (36.0-66.0); Platelet Count 365 K/mm3 (150-450); Red Blood Count 4.61 M/mm3 (4.1-5.4); Red Cell Distribution Width 16.8 % (11.5-14.0); White Blood Count 5.9 K/mm3 (4.0-10.5)
--- NOTE | 2021-03-04 10:19 | ERPHSYRPT ---
- History of Present Illness Historian: patient Exam Limitations: no limitations Patient Subjective Stated Complaint: Pt c/o of right and left lower quadrant pain Triage Nursing Assessment: Pt brought self to the ER, hypertensive, rates pain as 4/10 but it does reach a 10/10, tender to the lower quadrants, has had several diarrhea bowel movements this AM, has not eaten since yesterday at lunch, bowel sounds hyperactive, nauseous, denies vomiting Physician History: 45 yo wf w dupra-pubic pain x 2hrs. Pain is cramping-sharp, 10 on scale, nothing makes better or worse. She has N wo vomiting/Mild diarrhea wo melena/hematochezia/fever/dysuria/hematuria/fever. Pt had her appendix out 6 wks ago wo complications. She has also had a RUBEN woBSO and a viridiana. Timing/Duration: today Activities at Onset: rest Quality: sharpness, stabbing Abdominal Pain Onset Location: suprapubic Pain Radiation: no radiation Severity of Pain-Max: severe Severity of Pain-Current: severe Modifying Factors: Worsens With: analgesics, antacids, breathing, coughing, d efecating, eating, exercise, lying down, movement, palpation, rest, urinating, vomiting, position, walking Associated Symptoms: diarrhea, nausea, No back, No chest pain, No diaphoresis, No fever/chills, No fatigue, No headache, No heartburn, No loss of appetite, No neck pain, No rash, No shortness of breath, No syncope, No vomiting, No weakness Previous symptoms: same symptoms as today Allergies/Adverse Reactions: latex Allergy (Severe, Verified 03/04/21 10:03) penicillin G Allergy (Intermediate, Verified 03/04/21 10:03) Hives Penicillins Allergy (Unknown, Verified 03/04/21 10:03) Home Medications: Albuterol Sulfate [Proventil] 2.5 mg IH DAILY PRN PRN 10/13/12 [History] Montelukast Sodium 10 mg [Singulair 10 MG] 10 mg PO HS 10/13/12 [History] Pravastatin Sodium 10 mg PO HS 10/06/14 [History] Metoprolol Succinate [Toprol Xl] 100 mg PO BID 01/19/17 [History] Fluticasone/Salmeterol * [Advair Hfa 230/21 Mcg MDI] 2 puff IH BIDRT 04/05/17 [History] Furosemide 40 mg [Lasix 40 MG] 40 mg PO DAILY PRN PRN 04/05/17 [History] Liraglutide [Victoza 2-Glenn] 1.8 mg SQ DAILY 04/05/17 [History] Losartan Potassium 100 mg PO DAILY 04/05/17 [History] Metformin HCl [Metformin ER Osmotic] 500 mg PO BID 04/05/17 [History] Omeprazole 20 MG [Prilosec 20 mg] 20 mg PO DAILY 04/05/17 [History] Diltiazem HCl 120 mg [Cardizem CD 120 MG] 120 mg PO DAILY 07/08/18 [History] Paroxetine HCl 20 mg [Paxil 20 MG] 40 mg PO DAILY 07/08/18 [History] Hydrocodone/APAP 10/325 mg [[place] 10/325 MG TableT] 1 tab PO TIDPRN PRN 01/08/20 [History] Nitroglycerin 0.4 mg Tablet [Nitrostat 0.4 MG Tablet] 0.4 mg SL UD 01/08/20 [History] Dupilumab [Dupixent Syringe] 300 mg SQ DIRECTIONS UNKNOWN 01/07/21 [History] Fexofenadine HCl [Sally] 30 mg PO DAILY 01/07/21 [History] Meloxicam [Mobic] 7.5 mg PO BID 01/07/21 [History] Metaxalone [Skelaxin] 800 mg PO DAILY PRN 01/07/21 [History] Ondansetron HCl [Zofran] 4 mg PO BID PRN 01/07/21 [History] Tamsulosin HCl [Flomax] 0.4 mg PO DAILY 01/07/21 [History] Tiotropium [place] [Spiriva] 18 mcg IH DAILY 01/07/21 [History] Hx Tetanus, Diphtheria Vaccination/Date Given: Yes Hx Influenza Vaccination/Date Given: Yes Hx Pneumococcal Vaccination/Date Given: No Travel Risk - International Travel Have you traveled outside of the country in past 3 weeks: No - Coronavirus Screening Are you exhibiting any of the following symptoms?: No Close contact with a COVID-19 positive Pt in past 14-21 Days: No - Vaccine Status Have you recieved a Covid-19 vaccination: Yes Set Painter: Pfizer - Vaccination Dates Date of 2cond Vaccination (if applicable): 08/30/2020 - Review of Systems Constitutional: No Symptoms Eyes: No Symptoms Ears, Nose, & Throat: No Symptoms Respiratory: No Symptoms Cardiac: No Symptoms Abdominal/Gastrointestinal: Abdominal Pain, Nausea, Diarrhea, No Vomiting, No Constipation, No Hematemesis, No Hematochezia, No Melena, No Dysphagia, No Appe tite Changes Genitourinary Symptoms: No Symptoms Musculoskeletal: No Symptoms Skin: No Symptoms Neurological: No Symptoms Psychological: No Symptoms Endocrine: No Symptoms Hematologic/Lymphatic: No Symptoms Immunological/Allergic: No Symptoms - Past Medical History Pertinent Past Medical History: Yes Neurological History: No Pertinent History ENT History: No Pertinent History Cardiac History: Hypertension Respiratory History: Asthma Endocrine Medical History: No Pertinent History Musculoskeletal History: Other GI Medical History: No Pertinent History History: Other Psycho-Social History: No Pertinent History Female Reproductive Disorders: No Pertinent History, Fibroids Other Medical History: CATIE BUNIONECTOMY, STRESS FX LEFT FOOT, CHOLECYSTECTOMY, C-SECTIONS, HYSTERECTOMY, TONSILLECTOMY, Anemia - Past Surgical History Past Surgical History: Yes Neuro Surgical History: No Pertinent History Cardiac: No Pertinent History Respiratory: No Pertinent History Gastrointestinal: Cholecystectomy Genitourinary: No Pertinent History Musculoskeletal: Orthopedic Surgery, Other Female Surgical History: Hysterectomy, Section Other Surgical History: tonsils, Bilateral feet-bunionectomy , screws to catie 2nd toes. - Social History Smoking Status: Never smoker Exposure to second hand smoke: No Drug Use: none Patient Lives Alone: No Significant Family History: diabetes, hypertension - Female History Hx Now: No - Nursing Vital Signs Nursing Vital Signs: Initial Vital Signs Temperature 97.5 F 03/04/21 09:55 Pulse Rate 75 03/04/21 09:55 Blood Pressure 160/90 03/04/21 09:55 O2 Sat by Pulse Oximetry 99 03/04/21 09:55 Pain Scale Pain Intensity 4 Hypertensive - Physical Exam General Appearance: no apparent distress (In pain) Eye Exam: PERRL/EOMI, eyes nml inspection Ears, Nose, Throat Exam: normal ENT inspection, TMs normal, pharynx normal, moist mucous membranes Neck Exam: normal inspection, non-tender, supple, full range of motion, No meningismus, No mass, No Brudzinski, No Kernig's Respiratory Exam: normal breath sounds, lungs clear, airway intact, No respiratory distress Cardiovascular Exam: regular rate/rhythm, normal heart sounds, No murmur Gastrointestinal/Abdomen Exam: soft, normal bowel sounds, tenderness (Mod supra- pubic TTP wo guarding or rebound) Back Exam: normal inspection, normal range of motion, No CVA tenderness Extremity Exam: normal inspection, normal range of motion Neurologic Exam: alert, oriented x 3, cooperative, road patcher II-XII nml as tested, normal mood/affect Skin Exam: normal color, warm, dry Lymphatic Exam: No adenopathy SpO2 Interpretation: normal SpO2: 99 O2 Delivery: Room Air - Course Nursing assessment & vital signs reviewed: Yes - CT Exams Abdomen/Pelvis CT Interpretation: Discussed w/radiologist (Enlarging L ovarian cyst) Ordered Tests: Active Orders 24 hr Category Date Time Status IV Insertion STAT Care 03/04/21 10:02 Completed ABDOMEN AND PELVIS W CONTRAST [CT] Stat Exams 03/04/21 12:32 Completed AMYLASE Stat Lab 03/04/21 10:05 Completed CBC W DIFF Stat Lab 03/04/21 10:05 Completed CMP Stat Lab 03/04/21 10:05 Completed LIPASE Stat Lab 03/04/21 10:05 Completed TROPONIN Q3H Lab 03/04/21 10:15 Completed UA W/RFX UR CULTURE Stat Lab 03/04/21 11:46 Completed Medication Summary Discontinued Medications Generic Name Dose Route Start Last Admin Trade Name Freq PRN Reason Stop Dose Admin Sodium Chloride 1,000 mls @ 999 mls/hr 03/04/21 10:31 03/04/21 11:53 Sodium Chloride 0.9% 1000 Ml IV 03/04/21 11:31 Infused .Q1H1M STA Infusion Sodium Chloride Confirm 03/04/21 10:45 Sodium Chloride 0.9% 1000 Ml Administered 03/04/21 10:46 Dose 1,000 mls @ ud .ROUTE .STK-MED ONE Ketorolac Tromethamine 30 mg 03/04/21 10:02 03/04/21 10:13 Toradol 30 Mg Injection IV 03/04/21 10:03 30 mg STAT ONE Administration Ketorolac Tromethamine Confirm 03/04/21 10:12 Toradol 30 Mg Injection Administered 03/04/21 10:13 Dose 30 mg .ROUTE .STK-MED ONE Lab/Rad Data: Laboratory Result Diagrams 03/04/21 10:05 03/04/21 10:05 Laboratory Results 03/04/21 03/04/21 03/04/21 Range/Units 11:46 10:15 10:05 WBC (4.0-10.5) K/mm3 RBC (4.1-5.4) M/mm3 Hgb (12.0-16.0) gm/dl Hct (35-47) % MCV (78-100) fl MCH (26-32) pg MCHC (32-36) g/dl RDW (11.5-14.0) % Plt Count (150-450) K/mm3 MPV (7.5-11.0) fl Gran % (36.0-66.0) % Eos # (Auto) (0-0.5) Absolute Lymphs (auto) (1.0-4.6) Absolute Monos (auto) (0.0-1.3) Lymphocytes % (24.0-44.0) % Monocytes % (0.0-12.0) % Eosinophils % (0.00-5.0) % Basophils % (0.0-0.4) % Absolute Granulocytes (1.4-6.9) Basophils # (0-0.4) Sodium 139 (137-145) mmol/L Potassium 3.8 (3.5-5.1) mmol/L Chloride 100 (98-107) mmol/L Carbon Dioxide 28 (22-30) mmol/L Anion Gap 15.1 H (5-15) MEQ/L BUN 9 (7-17) mg/dL Creatinine 0.69 (0.52-1.04) mg/dL Estimated GFR > 60.0 ML/MIN Glucose 128 H (74-106) mg/dL Calcium 9.3 (8.4-10.2) mg/dL Total Bilirubin 0.20 (0.2-1.3) mg/dL AST 22 (14-36) U/L ALT 18 (0-35) U/L Alkaline Phosphatase 88 (38-126) U/L Troponin I < 0.012 (0.000-0.034) ng/mL Serum Total Protein 7.4 (6.3-8.2) g/dL Albumin 4.5 (3.5-5.0) g/dL Amylase 37 (30-110) U/L Lipase 24 (23-300) U/L Urine Color YELLOW (YELLOW) Urine Appearance CLEAR (CLEAR) Urine pH 9.0 (5-6) Ur Specific [place] 1.012 (1.005-1.025) Urine Protein NEGATIVE (Negative) Urine Ketones TRACE (NEGATIVE) Urine Blood NEGATIVE (0-5) Curry/ul Urine Nitrite NEGATIVE (NEGATIVE) Urine Bilirubin NEGATIVE (NEGATIVE) Urine Urobilinogen NEGATIVE (0-1) mg/dL Ur Leukocyte Esterase NEGATIVE (NEGATIVE) Urine WBC (Auto) NONE (0-5) /HPF Urine RBC (Auto) NONE (0-2) /HPF U Epithel Cells (Auto) NONE (FEW) /HPF Urine Bacteria (Auto) NONE SEEN (NEGATIVE) /HPF Urine Mucus (Auto) SLIGHT (NEGATIVE) /HPF Urine Culture Reflexed NO (NO) Urine Glucose NEGATIVE (NEGATIVE) mg/dL 03/04/21 Range/Units 10:05 WBC 5.9 (4.0-10.5) K/mm3 RBC 4.61 (4.1-5.4) M/mm3 Hgb 12.3 (12.0-16.0) gm/dl Hct 40.1 (35-47) % MCV 87.0 (78-100) fl MCH 26.7 (26-32) pg MCHC 30.7 L (32-36) g/dl RDW 16.8 H (11.5-14.0) % Plt Count 365 (150-450) K/mm3 MPV 8.9 (7.5-11.0) fl Gran % 76.3 H (36.0-66.0) % Eos # (Auto) 0.09 (0-0.5) Absolute Lymphs (auto) 1.05 (1.0-4.6) Absolute Monos (auto) 0.25 (0.0-1.3) Lymphocytes % 17.8 L (24.0-44.0) % Monocytes % 4.2 (0.0-12.0) % Eosinophils % 1.5 (0.00-5.0) % Basophils % 0.2 (0.0-0.4) % Absolute Granulocytes 4.49 (1.4-6.9) Basophils # 0.01 (0-0.4) Sodium (137-145) mmol/L Potassium (3.5-5.1) mmol/L Chloride (98-107) mmol/L Carbon Dioxide (22-30) mmol/L Anion Gap (5-15) MEQ/L BUN (7-17) mg/dL Creatinine (0.52-1.04) mg/dL Estimated GFR ML/MIN Glucose (74-106) mg/dL Calcium (8.4-10.2) mg/dL Total Bilirubin (0.2-1.3) mg/dL AST (14-36) U/L ALT (0-35) U/L Alkaline Phosphatase (38-126) U/L Troponin I (0.000-0.034) ng/mL Serum Total Protein (6.3-8.2) g/dL Albumin (3.5-5.0) g/dL Amylase (30-110) U/L Lipase (23-300) U/L Urine Color (YELLOW) Urine Appearance (CLEAR) Urine pH (5-6) Ur Specific [place] (1.005-1.025) Urine Protein (Negative) Urine Ketones (NEGATIVE) Urine Blood (0-5) Curry/ul Urine Nitrite (NEGATIVE) Urine Bilirubin (NEGATIVE) Urine Urobilinogen (0-1) mg/dL Ur Leukocyte Esterase (NEGATIVE) Urine WBC (Auto) (0-5) /HPF Urine RBC (Auto) (0-2) /HPF U Epithel Cells (Auto) (FEW) /HPF Urine Bacteria (Auto) (NEGATIVE) /HPF Urine Mucus (Auto) (NEGATIVE) /HPF Urine Culture Reflexed (NO) Urine Glucose (NEGATIVE) mg/dL - Progress Progress: improved Progress Note: 03/04/21 13:33 Pain improved w 30mg IV Toradol/1L NS bolus Counseled pt/family regarding: lab results, diagnosis, need for follow-up, rad results - Departure Departure Disposition: Home Clinical Impression: Ovarian cyst, Abdominal pain Condition: Stable Critical Care Time: No Referrals: MERRILL DOW [Primary Care Provider] - Instructions: Acute Abdomen (Belly Pain), Adult (DC) Additional Instructions: Follow up with your family MD or [facility] for pain Return to ER for increasing pain or temperature greater than 100.5
[2021-03-04 10:29] LABS: ALBUMIN 4.5 g/dL (3.5-5.0); ALKALINE PHOSPHATASE 88 U/L (38-126); AMYLASE 37 U/L (30-110); ANION GAP 15.1 MEQ/L (5-15); BLOOD UREA NITROGEN 9 mg/dL (7-17); CHLORIDE 100 mmol/L (98-107); Calcium 9.3 mg/dL (8.4-10.2); Carbon Dioxide 28 mmol/L (22-30); Creatinine 1 0.69 mg/dL (0.52-1.04); EST GLOMERULAR FILTRATION RATE > 60.0 ML/MIN; Glucose 128 mg/dL (74-106); LIPASE 24 U/L (23-300); Potassium 3.8 mmol/L (3.5-5.1); SGOT/AST 22 U/L (14-36); SGPT/ALT 18 U/L (0-35); SODIUM 139 mmol/L (137-145); Total Protein 7.4 g/dL (6.3-8.2)
[2021-03-04] MEDS ORDERED: Sodium Chloride 0.9% 1000 ML 1,000 ML IV STA (10:31)
[2021-03-04] MEDS ORDERED: Sodium Chloride 0.9% 1000 ML 1,000 ML ONE (10:45)
[2021-03-04 12:20] LABS: Appearance CLEAR (CLEAR); Bilirubin NEGATIVE (NEGATIVE); Blood NEGATIVE Ery/ul (0-5); Glucose NEGATIVE (NEGATIVE); Ketones TRACE (NEGATIVE); Leukocyte Esterase NEGATIVE (NEGATIVE); Mucus SLIGHT /HPF (NEGATIVE); Nitrite NEGATIVE (NEGATIVE); Protein,Urine Dip NEGATIVE (Negative); Specific Gravity 1.012 (1.005-1.025); Urobilinogen NEGATIVE mg/dL (0-1)
[2021-03-04 12:22] LABS: Bacteria NONE SEEN /HPF (NEGATIVE)
[2021-03-04 13:05] VITALS: BP 138/76; PULSE 78
--- NOTE | 2021-03-04 13:29 | XRAY ---
Indication: Suprapubic pain. Multiple contiguous axial images obtained through the abdomen and pelvis using 80 cc Isovue 370 contrast. Comparison: January 06, 2021. Lung bases again demonstrate minimal dependent atelectasis without infiltrate or effusion. Heart not enlarged. Noncontrasted stomach and bowel loops remain nonobstructed. Interval appendectomy. Uterus again surgically absent. Interval enlarging left ovary cyst measuring 2.2 x 3.3 cm. No free fluid/air. Stable tiny hepatic cyst. Remaining liver, pancreas, spleen, adrenal glands, kidneys, ureters, bladder, and aorta are unremarkable. No pathologic retroperitoneal lymphadenopathy. Osseous structures intact again with minimal degenerative changes. Impression: 1. Enlarging 2.2 x 3.3 cm left ovary cyst. 2. Stable tiny hepatic cyst and minimal degenerative spondylosis. 3. Remaining CT abdomen/pelvis with contrast exam is negative.
[2021-03-04 13:36] VITALS: O2SAT 99
== END 2021-03-04 13:40 | disposition home or self-care (01) ==
LOC: ED 09:53
DX: N83.209 Unspecified ovarian cyst, unspecified side (principal); Z79.899 Other long term (current) drug therapy
CPT/HCPCS: 36000; 36415; 74177; 80053; 81001; 82150; 83690; 84484; 85025; 96360; 96374; 99284; J1885

== ENCOUNTER 2021-08-17 20:42 | Emergency (ER) | payer OTHER ==
--- NOTE | 2021-08-17 21:01 | ERPHSYRPT ---
- History of Present Illness Time Seen by Provider: 08/17/21 20:56 Source: patient Exam Limitations: no limitations Physician History: This is a 45-year-old white female has a history of hypertension, diabetes, elevated cholesterol and asthma who presents with dizziness and vomiting that occurred prior to arrival to the emergency department. Patient states that she was driving her daughter and her boyfriend and drop them off and suddenly began having these symptoms of dizziness and vomiting. Patient denies any head trauma. This has occurred in the past on a couple of occasions. However this was the more severe episode. Patient denies any new medications. There are no changes in her medication. She also complains of tinnitus. Patient denies shortness of breath. She denies chest pain. She does have a 4 out of 10 level headache that is generalized. She has not had any vomiting of blood, rectal bleeding or vaginal bleeding. Patient has had a hysterectomy in the past. 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 Timing/Duration: today Severity: moderate Character of Deficits: none Deficits: cannot walk, decrease ability to stand, decrease ability to walk Baseline/Normal Cognition: alert oriented x 3 Current Cognition: alert oriented x 3 (Secondary dizziness) Baseline Gait: walks w/o assistance Associated Symptoms: nausea, vomiting, other (Dizziness) Allergies/Adverse Reactions: celecoxib [From Celebrex] Allergy (Severe, Verified 08/17/21 20:53) Swelling latex Allergy (Severe, Verified 08/17/21 20:53) penicillin G Allergy (Intermediate, Verified 08/17/21 20:53) Hives Penicillins Allergy (Unknown, Verified 08/17/21 20:53) Home Medications: Albuterol Sulfate [Proventil] 2.5 mg IH DAILY PRN PRN 10/13/12 [History] Montelukast Sodium 10 mg [Singulair 10 MG] 10 mg PO HS 10/13/12 [History] Metoprolol Succinate [Toprol Xl] 100 mg PO BID 01/19/17 [History] Fluticasone/Salmeterol 230/21* [Advair Hfa 230/21 Mcg MDI] 2 puff IH BIDRT 04/05/17 [History] Furosemide 40 mg [Lasix 40 MG] 40 mg PO DAILY PRN PRN 04/05/17 [History] Liraglutide [Victoza 2-Glenn] 1.8 mg SQ DAILY 04/05/17 [History] Losartan Potassium 100 mg PO DAILY 04/05/17 [History] Metformin HCl [Metformin ER Osmotic] 500 mg PO BID 04/05/17 [History] Omeprazole 20 MG [Prilosec 20 mg] 20 mg PO DAILY 04/05/17 [History] Diltiazem HCl 120 mg [Cardizem CD 120 MG] 120 mg PO DAILY 07/08/18 [History] Paroxetine HCl 20 mg [Paxil 20 MG] 40 mg PO DAILY 07/08/18 [History] Hydrocodone/APAP 10/325 mg [[place] 10/325 MG TableT] 1 tab PO TIDPRN PRN 01/08/20 [History] Nitroglycerin 0.4 mg Tablet [Nitrostat 0.4 MG Tablet] 0.4 mg SL UD 01/08/20 [History] Dupilumab [Dupixent Syringe] 300 mg SQ DIRECTIONS UNKNOWN 01/07/21 [History] Fexofenadine HCl [Sally] 30 mg PO DAILY 01/07/21 [History] Meloxicam [Mobic] 7.5 mg PO BID 01/07/21 [History] Metaxalone [Skelaxin] 800 mg PO DAILY PRN 01/07/21 [History] Tamsulosin HCl [Flomax] 0.4 mg PO DAILY 01/07/21 [History] Tiotropium [place] [Spiriva] 18 mcg IH DAILY 01/07/21 [History] ondansetron HCL [Zofran] 4 mg PO BID PRN 01/07/21 [History] Isosorbide Mononitrate 30 mg [Imdur 30 MG] 1 tab PO DAILY 08/17/21 [History] Simvastatin [Zocor] 1 tab PO HS 08/17/21 [History] Hx Tetanus, Diphtheria Vaccination/Date Given: Yes Hx Influenza Vaccination/Date Given: Yes Hx Pneumococcal Vaccination/Date Given: No Travel Risk - International Travel Have you traveled outside of the country in past 3 weeks: No - Coronavirus Screening Are you exhibiting any of the following symptoms?: No Symptoms: Vomiting/Diarrhea Close contact with a COVID-19 positive Pt in past 14-21 Days: No - Vaccine Status Have you recieved a Covid-19 vaccination: Yes 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: [employer] - Vaccination Dates Date of 2cond Vaccination (if applicable): 08/30/2020 - Review of Systems Constitutional: Weakness Eyes: No Symptoms Ears, Nose, & Throat: Tinnitus, Other Respiratory: No Symptoms Cardiac: No Symptoms Abdominal/Gastrointestinal: No Symptoms Genitourinary Symptoms: No Symptoms Musculoskeletal: No Symptoms Skin: No Symptoms Neurological: Dizziness, Headache Psychological: No Symptoms Endocrine: No Symptoms Hematologic/Lymphatic: No Symptoms Immunological/Allergic: No Symptoms All Other Systems: Reviewed and Negative - Past Medical History Pertinent Past Medical History: Yes Neurological History: No Pertinent History ENT History: No Pertinent History Cardiac History: Hypertension Respiratory History: Asthma Endocrine Medical History: No Pertinent History Musculoskeletal History: Other GI Medical History: No Pertinent History History: Other Psycho-Social History: No Pertinent History Female Reproductive Disorders: No Pertinent History, Fibroids Other Medical History: CATIE BUNIONECTOMY, STRESS FX LEFT FOOT, CHOLECYSTECTOMY, C-SECTIONS, HYSTERECTOMY, TONSILLECTOMY, Anemia - Past Surgical History Past Surgical History: Yes Neuro Surgical History: No Pertinent History Cardiac: No Pertinent History Respiratory: No Pertinent History Gastrointestinal: Appendectomy, Cholecystectomy Genitourinary: No Pertinent History Musculoskeletal: Orthopedic Surgery, Other Female Surgical History: Hysterectomy, Section Other Surgical History: tonsils, Bilateral feet-bunionectomy , screws to catie 2nd toes. - Social History Smoking Status: Never smoker Exposure to second hand smoke: No Drug Use: none Patient Lives Alone: No Significant Family History: diabetes, hypertension - Nursing Vital Signs Nursing Vital Signs: Initial Vital Signs Pulse Rate 74 08/17/21 20:53 Respiratory Rate 17 08/17/21 20:53 Blood Pressure 143/85 08/17/21 20:53 O2 Sat by Pulse Oximetry 96 08/17/21 20:53 Pain Scale Pain Intensity 4 - [place] Coma Scale Best Eye Response ([place]): (4) open spontaneously Best Verbal Response ([place]): (5) oriented Best Motor Response ([place]): (6) obeys commands [place] Total: 15 - Physical Exam General Appearance: mild distress, alert, anxiety Eye Exam: bilateral eye: normal inspection, PERRL, EOMI Ears, Nose, Throat Exam: normal ENT inspection, TMs normal, pharynx normal, moist mucous membranes Neck Exam: normal inspection, non-tender, supple, full range of motion Respiratory: normal breath sounds, lungs clear, airway intact, No chest tenderness, No respiratory distress Cardiovascular: regular rate/rhythm, normal heart sounds, normal peripheral pulses Gastrointestinal: soft, normal bowel sounds, No tenderness Pelvic Exam: not done Rectal Exam: not done Back Exam: normal inspection, normal range of motion, No CVA tenderness, No vertebral tenderness Extremity Exam: normal inspection, normal range of motion, pelvis stable Mental Status: alert, oriented x 3, 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 Exam: normal hearing, normal speech, PERRL, tongue midline Coordination/Gait: normal finger to nose Skin Exam: normal color, warm, dry SpO2 Interpretation: normal O2 Delivery: Room Air - Course Nursing assessment & vital signs reviewed: Yes Ordered Tests: Active Orders 24 hr Category Date Time Status Clean Catch Urine Specimen STAT Care 08/17/21 21:05 Active EKG-ER Only STAT Care 08/17/21 21:05 Active IV Insertion STAT Care 08/17/21 21:05 Active HEAD WITHOUT CONTRAST [CT] Stat Exams 08/17/21 21:08 Taken AMYLASE Stat Lab 08/17/21 21:13 Completed BLOOD CULTURE Stat Lab 08/17/21 21:53 Received CBC W DIFF Stat Lab 08/17/21 21:13 Completed CMP Stat Lab 08/17/21 21:13 Completed LIPASE Stat Lab 08/17/21 21:13 Completed Lactic Acid Stat Lab 08/17/21 21:11 Completed [place] Screen Stat Lab 08/17/21 21:53 Completed TROPONIN Q3H Lab 08/17/21 21:14 Completed TROPONIN Q3H Lab 08/18/21 00:15 Ordered TROPONIN Q3H Lab 08/18/21 03:15 Ordered TROPONIN Q3H Lab 08/18/21 06:15 Ordered TROPONIN Q3H Lab 08/18/21 09:15 Ordered UA W/RFX UR CULTURE Stat Lab 08/17/21 21:06 Ordered Urine Triage Profile Stat Lab 08/17/21 21:06 Ordered Medication Summary Generic Name Dose Route Start Last Admin Trade Name Freq PRN Reason Stop Dose Admin Azithromycin 500 mg in 250 mls @ 250 mls/hr 08/17/21 22:22 Zithromax 500 Mg/ 250 Ml Nacl Premix IV 08/17/21 23:21 STAT STA Ceftriaxone Sodium/Dextrose 1 g in 50 mls @ 100 mls/hr 08/17/21 22:24 08/17/21 22:37 Rocephin 1 Gm-D5w 50 Ml Bag IV 08/17/21 22:53 100 mls/hr STAT STA 100 mls/hr Administration Discontinued Medications Generic Name Dose Route Start Last Admin Trade Name Igor PRN Reason Stop Dose Admin Methylprednisolone Sodium 0 mg 08/17/21 22:20 08/17/21 22:36 Succinate 125 mg/ Sterile IV 08/17/21 22:21 125 mg Water 2 ml STAT ONE Administration Hydromorphone HCl 1 mg 08/17/21 22:34 Hydromorphone 1 Mg/1ml Inj 1 Mg/Ml Syringe IV 08/17/21 22:35 STAT ONE Hydromorphone HCl Confirm 08/17/21 22:38 Hydromorphone 1 Mg/1ml Inj 1 Mg/Ml Syringe Administered 08/17/21 22:39 Dose 1 mg .ROUTE .STK-MED ONE Sodium Chloride 1,000 mls @ 999 mls/hr 08/17/21 21:05 08/17/21 22:15 Sodium Chloride 0.9% 1000 Ml IV 08/17/21 22:05 Infused .Q1H1M STA Infusion Sodium Chloride Confirm 08/17/21 21:10 Sodium Chloride 0.9% 1000 Ml Administered 08/17/21 21:11 Dose 1,000 mls @ ud .ROUTE .STK-MED ONE Ceftriaxone Sodium/Dextrose Confirm 08/17/21 22:35 Rocephin 1 Gm-D5w 50 Ml Bag Administered 08/17/21 22:36 Dose 1 g in 50 mls @ ud IV .STK-MED ONE Methylprednisolone Sodium Succinate Confirm 08/17/21 22:35 Methylprednis Sod Succ 125 Mg/2 Ml Vial Administered 08/17/21 22:36 Dose 125 mg .ROUTE .STK-MED ONE Ondansetron HCl 4 mg 08/17/21 21:05 08/17/21 21:12 Ondansetron Hcl 4 Mg/2 Ml Vial IV 08/17/21 21:06 4 mg STAT ONE Administration Ondansetron HCl Confirm 08/17/21 21:10 Ondansetron Hcl 4 Mg/2 Ml Vial Administered 08/17/21 21:11 Dose 4 mg .ROUTE .STK-MED ONE Prochlorperazine Edisylate 10 mg 08/17/21 21:58 08/17/21 22:00 Prochlorperazine Edisylate 10 Mg/2 Ml Vial IV 08/17/21 21:59 10 mg STAT ONE Administration Prochlorperazine Edisylate Confirm 08/17/21 22:00 Prochlorperazine Edisylate 10 Mg/2 Ml Vial Administered 08/17/21 22:01 Dose 10 mg .ROUTE .STK-MED ONE Lab/Rad Data: Laboratory Result Diagrams 08/17/21 21:13 08/17/21 21:13 Laboratory Results 08/17/21 08/17/21 08/17/21 Range/Units 21:53 21:14 21:13 WBC (4.0-10.5) K/mm3 RBC (4.1-5.4) M/mm3 Hgb (12.0-16.0) gm/dl Hct (35-47) % MCV (78-100) fl MCH (26-32) pg MCHC (32-36) g/dl RDW (11.5-14.0) % Plt Count (150-450) K/mm3 MPV (7.5-11.0) fl Gran % (36.0-66.0) % Eos # (Auto) (0-0.5) Absolute Lymphs (auto) (1.0-4.6) Absolute Monos (auto) (0.0-1.3) Lymphocytes % (24.0-44.0) % Monocytes % (0.0-12.0) % Eosinophils % (0.00-5.0) % Basophils % (0.0-0.4) % Absolute Granulocytes (1.4-6.9) Basophils # (0-0.4) Sodium 138 (137-145) mmol/L Potassium 3.9 (3.5-5.1) mmol/L Chloride 103 (98-107) mmol/L Carbon Dioxide 27 (22-30) mmol/L Anion Gap 11.1 (5-15) MEQ/L BUN 8 (7-17) mg/dL Creatinine 0.66 (0.52-1.04) mg/dL Estimated GFR > 60.0 ML/MIN Glucose 109 H (74-106) mg/dL Lactic Acid (0.4-2.0) Calcium 8.7 (8.4-10.2) mg/dL Total Bilirubin 0.30 (0.2-1.3) mg/dL AST 17 (14-36) U/L ALT 19 (0-35) U/L Alkaline Phosphatase 91 (38-126) U/L Troponin I < 0.012 (0.000-0.034) ng/mL Serum Total Protein 6.3 (6.3-8.2) g/dL Albumin 3.9 (3.5-5.0) g/dL Amylase 36 (30-110) U/L Lipase 61 (23-300) U/L Monoscreen NEGATIVE (Negative) 08/17/21 08/17/21 Range/Units 21:13 21:11 WBC 5.6 (4.0-10.5) K/mm3 RBC 4.11 (4.1-5.4) M/mm3 Hgb 12.1 (12.0-16.0) gm/dl Hct 37.4 (35-47) % MCV 91.0 (78-100) fl MCH 29.4 (26-32) pg MCHC 32.4 (32-36) g/dl RDW 14.7 H (11.5-14.0) % Plt Count 280 (150-450) K/mm3 MPV 9.1 (7.5-11.0) fl Gran % 53.3 (36.0-66.0) % Eos # (Auto) 0.17 (0-0.5) Absolute Lymphs (auto) 1.90 (1.0-4.6) Absolute Monos (auto) 0.54 (0.0-1.3) Lymphocytes % 33.7 (24.0-44.0) % Monocytes % 9.6 (0.0-12.0) % Eosinophils % 3.0 (0.00-5.0) % Basophils % 0.4 (0.0-0.4) % Absolute Granulocytes 3.01 (1.4-6.9) Basophils # 0.02 (0-0.4) Sodium (137-145) mmol/L Potassium (3.5-5.1) mmol/L Chloride (98-107) mmol/L Carbon Dioxide (22-30) mmol/L Anion Gap (5-15) MEQ/L BUN (7-17) mg/dL Creatinine (0.52-1.04) mg/dL Estimated GFR ML/MIN Glucose (74-106) mg/dL Lactic Acid 1.9 (0.4-2.0) Calcium (8.4-10.2) mg/dL Total Bilirubin (0.2-1.3) mg/dL AST (14-36) U/L ALT (0-35) U/L Alkaline Phosphatase (38-126) U/L Troponin I (0.000-0.034) ng/mL Serum Total Protein (6.3-8.2) g/dL Albumin (3.5-5.0) g/dL Amylase (30-110) U/L Lipase (23-300) U/L Monoscreen (Negative) - Progress Progress: improved, re-examined Progress Note: 08/17/21 22:43 CAT scan of the head without contrast shows complete left maxillary sinus opacification, poly versus retention cyst 08/17/21 22:44 Patient initially wanted medication for worsening headache. However, she now is refusing pain medicine stating that her headache and sinus pressure are improving. Patient states she has pain medicine at home ([place]). Counseled pt/family regarding: lab results, diagnosis, need for follow-up, rad results - Departure Departure Disposition: Home Clinical Impression: Maxillary sinusitis, acute Condition: Stable Critical Care Time: No Referrals: MERRILL INGRAM [Primary Care Provider] - Follow up/PCP as directed Additional Instructions: Drink plenty fluids. Take medication as prescribed. Continue your [place] pain medicine as prescribed. Return to the emergency department if symptoms worsen. Monitor your blood sugar closely while taking the prednisone. Forms: Work/School Release Form Prescriptions: Prochlorperazine Maleate 10 mg [Compazine 10 mg] 10 mg PO Q12H PRN PRN #10 tablet PRN Reason: Nausea/Vomiting Prednisone 10 mg [Deltasone 10 mg] 10 mg PO TID #12 tablet Cefdinir [Omnicef 300 mg] 300 mg PO BID 7 Days #14 cap
[2021-08-17] MEDS ORDERED: Zofran 4 MG/2 ML VIAL IV ONE (21:05)
[2021-08-17] MEDS ORDERED: Sodium Chloride 0.9% 1000 ML 1,000 ML IV STA (21:05)
[2021-08-17] MEDS ORDERED: Sodium Chloride 0.9% 1000 ML 1,000 ML ONE (21:10)
[2021-08-17] MEDS ORDERED: Zofran 4 MG/2 ML VIAL ONE (21:10)
[2021-08-17 21:17] LABS: Absolute Neutrophil Ct (ANC) 3.01 (1.4-6.9); Basophil (Absolute #) 0.02 (0-0.4); Eosinophil (Absolute #) 0.17 (0-0.5); Hematocrit 37.4 % (35-47); Hemoglobin 12.1 gm/dl (12.0-16.0); Lymphocytes % 33.7 % (24.0-44.0); Mean Corpuscular Hemoglobin 29.4 pg (26-32); Mean Corpuscular Hgb Concent. 32.4 g/dl (32-36); Mean Platelet Volume 9.1 fl (7.5-11.0); Monocyte (Absolute #) 0.54 (0.0-1.3); Monocytes % 9.6 % (0.0-12.0); Neutrophil % 53.3 % (36.0-66.0); Platelet Count 280 K/mm3 (150-450); Red Blood Count 4.11 M/mm3 (4.1-5.4); Red Cell Distribution Width 14.7 % (11.5-14.0); White Blood Count 5.6 K/mm3 (4.0-10.5)
[2021-08-17] MEDS ORDERED: Compazine 10 MG/2 ML IV ONE (21:58)
[2021-08-17] MEDS ORDERED: Compazine 10 MG/2 ML ONE (22:00)
[2021-08-17 22:14] LABS: ALBUMIN 3.9 g/dL (3.5-5.0); ALKALINE PHOSPHATASE 91 U/L (38-126); AMYLASE 36 U/L (30-110); ANION GAP 11.1 MEQ/L (5-15); BLOOD UREA NITROGEN 8 mg/dL (7-17); CHLORIDE 103 mmol/L (98-107); Calcium 8.7 mg/dL (8.4-10.2); Carbon Dioxide 27 mmol/L (22-30); Creatinine 1 0.66 mg/dL (0.52-1.04); EST GLOMERULAR FILTRATION RATE > 60.0 ML/MIN; Glucose 109 mg/dL (74-106); LIPASE 61 U/L (23-300); Potassium 3.9 mmol/L (3.5-5.1); SGOT/AST 17 U/L (14-36); SGPT/ALT 19 U/L (0-35); SODIUM 138 mmol/L (137-145); Total Protein 6.3 g/dL (6.3-8.2)
[2021-08-17] MEDS ORDERED: solu-MEDROL 125 MG, Sterile H2O 10 ml 2 ML IV ONE ×2 (22:20)
[2021-08-17] MEDS ORDERED: Zithromax 500 MG/ 250 ML NaCl Premix 500 MG/250 ML IVPB IV STA (22:22)
[2021-08-17] MEDS ORDERED: ROCEPHIN 1 Gm-D5w 50 ml Bag** 1 G/50 ML IVPB IV STA (22:24)
[2021-08-17] MEDS ORDERED: Hydromorphone 1 mg/ml Injection IV ONE (22:34)
[2021-08-17] MEDS ORDERED: ROCEPHIN 1 Gm-D5w 50 ml Bag** 1 G/50 ML IVPB IV ONE (22:35)
[2021-08-17] MEDS ORDERED: solu-MEDROL ONE (22:35)
[2021-08-17] MEDS ORDERED: Hydromorphone 1 mg/ml Injection ONE (22:38)
[2021-08-17 22:52] LABS: INFLUENZA A NEGATIVE (NEGATIVE); INFLUENZA B NEGATIVE (NEGATIVE); RESPIRATORY SYNCTIAL VIRUS NEGATIVE (Negative); SARS-CoV-2 Xpert Express NEGATIVE (NEGATIVE)
[2021-08-17] MEDS ORDERED: Zithromax 500 MG/ 250 ML NaCl Premix 500 MG/250 ML IVPB IV ONE (23:13)
[2021-08-18 00:12] VITALS: O2SAT 97
[2021-08-18 01:01] VITALS: BP 110/68; PULSE 70
--- NOTE | 2021-08-18 08:56 | XRAY ---
Indication: Headache, vomiting, and dizziness. Multiple contiguous axial images obtained through the head without contrast. Comparison: None Normal appearing brain parenchyma, ventricles, and bony calvarium. Left maxillary sinus demonstrates complete opacification and appear slightly expansile extending into the left nasal passage, possible polyp versus retention cyst. Remaining visualized paranasal sinuses and mastoid air cells are clear. Impression: 1. Left maxillary sinus polyp versus retention cyst. 2. Remaining CT head without contrast exam is normal.
== END 2021-08-18 01:03 | disposition home or self-care (01) ==
LOC: ED 20:42
DX: J01.00 Acute maxillary sinusitis, unspecified (principal); R42 Dizziness and giddiness; R11.2 Nausea with vomiting, unspecified; I10 Essential (primary) hypertension; E78.5 Hyperlipidemia, unspecified; E11.9 Type 2 diabetes mellitus without complications; Z79.84 Long term (current) use of oral hypoglycemic drugs; Z79.891 Long term (current) use of opiate analgesic; Z79.899 Other long term (current) drug therapy; Z79.52 Long term (current) use of systemic steroids
CPT/HCPCS: 0241U; 36000; 36415; 70450; 80053; 82150; 83605; 83690; 84484; 85025; 86308; 87040; 93005; 96374; 96375; 99284; J0456; J0696; J1170; J2405; J2930

== ENCOUNTER 2022-06-12 12:41 | Emergency (ER) | payer OTHER ==
--- NOTE | 2022-06-12 12:46 | ERPHSYRPT ---
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 Prakash Hernandez who has a history of asthma and status asthmaticus in the past and presents with intermittent shortness of air with exertion that began yesterday. Symptoms were worse today and patient was seen at the walk-in clinic. Patient was found to have a low oxygen saturation level and therefore patient was sent to the emergency department for further evaluation and management. Her room air oxygenation level was 78% on arrival to the emergency department with only a brief level of exertion. Patient denies chest pain. She has no abdominal pain. She has not had a fever. She has no known recent exposures to individuals with viral illnesses. 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 Patient has a history of hyperlipidemia, gastroesophageal reflux disease, hypertension and [id number] diabetes. Timing/Duration: yesterday Activities at Onset: activity Severity of Dyspnea-Max: moderate Severity of Dyspnea-Current: moderate Possible Cause: occasional episodes Modifying Factors: Improves With: activity (Worsens), oxygen (Improves) Associated Symptoms: denies symptoms Allergies/Adverse Reactions: celecoxib [From Celebrex] Allergy (Severe, Verified 06/12/22 12:43) Swelling latex Allergy (Severe, Verified 06/12/22 12:43) penicillin G Allergy (Intermediate, Verified 06/12/22 12:43) Hives Penicillins Allergy (Unknown, Verified 06/12/22 12:43) lisinopril Allergy (Verified 06/12/22 12:43) Home Medications: Albuterol Sulfate [Proventil] 2.5 mg IH DAILY PRN PRN 10/13/12 [History] Montelukast Sodium 10 mg [Singulair 10 MG] 10 mg PO HS 10/13/12 [History] Metoprolol Succinate [Toprol Xl] 100 mg PO BID 01/19/17 [History] Fluticasone/Salmeterol 230/21* [Advair Hfa 230/21 Mcg MDI] 2 puff IH BIDRT 04/05/17 [History] Furosemide 40 mg [Lasix 40 MG] 40 mg PO DAILY PRN PRN 04/05/17 [History] Liraglutide [Victoza 2-Glenn] 1.8 mg SQ DAILY 04/05/17 [History] Losartan Potassium 100 mg PO DAILY 04/05/17 [History] Metformin HCl [Metformin ER Osmotic] 500 mg PO BID 04/05/17 [History] Omeprazole 20 MG [Prilosec 20 mg] 20 mg PO DAILY 04/05/17 [History] Diltiazem HCl Cd [Cardizem CD ] 120 mg PO DAILY 07/08/18 [History] Paroxetine HCl 20 mg [Paxil 20 MG] 40 mg PO DAILY 07/08/18 [History] Hydrocodone/APAP 10/325 mg [[place] 10/325 MG TableT] 1 tab PO TIDPRN PRN 01/08/20 [History] Nitroglycerin 0.4 mg Tablet [Nitrostat 0.4 MG Tablet] 0.4 mg SL UD 01/08/20 [History] Dupilumab [Dupixent Syringe] 300 mg SQ DIRECTIONS UNKNOWN 01/07/21 [History] Fexofenadine HCl [Sally] 30 mg PO DAILY 01/07/21 [History] Meloxicam [Mobic] 7.5 mg PO BID 01/07/21 [History] Metaxalone [Skelaxin] 800 mg PO DAILY PRN 01/07/21 [History] Tamsulosin HCl [Flomax] 0.4 mg PO DAILY 01/07/21 [History] Tiotropium [place] [Spiriva Handihaler] 18 mcg IH DAILY 01/07/21 [History] ondansetron HCL [Zofran] 4 mg PO BID PRN 01/07/21 [History] Isosorbide Mononitrate 30 mg [Imdur 30 MG] 1 tab PO DAILY 08/17/21 [History] Simvastatin [Zocor] 1 tab PO HS 08/17/21 [History] Hx Tetanus, Diphtheria Vaccination/Date Given: Yes Hx Influenza Vaccination/Date Given: Yes Hx Pneumococcal Vaccination/Date Given: No Travel Risk - International Travel Have you traveled outside of the country in past 3 weeks: No - Coronavirus Screening Are you exhibiting any of the following symptoms?: Yes Symptoms: Shortness of Breath Close contact with a COVID-19 positive Pt in past 14-21 Days: No - Vaccine Status Have you recieved a Covid-19 vaccination: Yes 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 - Vaccination Dates Date of 2cond Vaccination (if applicable): 08/30/2020 - Review of Systems Constitutional: No Symptoms Eyes: No Symptoms Ears, Nose, & Throat: Nose Pain Respiratory: Dyspnea Cardiac: No Symptoms Abdominal/Gastrointestinal: No Symptoms Genitourinary Symptoms: No Symptoms Musculoskeletal: No Symptoms Skin: No Symptoms Neurological: No Symptoms Psychological: No Symptoms Endocrine: No Symptoms Hematologic/Lymphatic: No Symptoms Immunological/Allergic: No Symptoms All Other Systems: Reviewed and Negative - Past Medical History Pertinent Past Medical History: Yes Neurological History: No Pertinent History ENT History: No Pertinent History Cardiac History: Hypertension Respiratory History: Asthma Endocrine Medical History: No Pertinent History Musculoskeletal History: Other GI Medical History: No Pertinent History History: Other Psycho-Social History: No Pertinent History Female Reproductive Disorders: No Pertinent History, Fibroids Other Medical History: CATIE BUNIONECTOMY, STRESS FX LEFT FOOT, CHOLECYSTECTOMY, C-SECTIONS, HYSTERECTOMY, TONSILLECTOMY, Anemia - Past Surgical History Past Surgical History: Yes Neuro Surgical History: No Pertinent History Cardiac: No Pertinent History Respiratory: No Pertinent History Gastrointestinal: Appendectomy, Cholecystectomy Genitourinary: No Pertinent History Musculoskeletal: Orthopedic Surgery, Other Female Surgical History: Hysterectomy, Section Other Surgical History: tonsils, Bilateral feet-bunionectomy , screws to catie 2nd toes. - Social History Smoking Status: Never smoker Exposure to second hand smoke: No Drug Use: none Patient Lives Alone: No Significant Family History: diabetes, hypertension - Nursing Vital Signs Nursing Vital Signs: Initial Vital Signs Temperature 97.6 F 06/12/22 12:43 Pulse Rate 64 06/12/22 12:43 Respiratory Rate 12 06/12/22 12:43 Blood Pressure 177/74 06/12/22 12:43 O2 Sat by Pulse Oximetry 100 06/12/22 12:43 Pain Scale Pain Intensity 0 - Physical Exam General Appearance: mild distress (With exertion), alert, anxiety Eye Exam: PERRL/EOMI, post op pupil defect (L) Ears, Nose, Throat Exam: hearing grossly normal, normal ENT inspection, normal pharynx Neck Exam: normal inspection, non-tender, supple, full range of motion Respiratory Exam: normal breath sounds, lungs clear, airway intact, No chest tenderness, No respiratory distress Cardiovascular/Chest Exam: normal heart sounds, regular rate/rhythm, normal peripheral pulses Abdominal/Gastrointestinal Exam: soft, normal bowel sounds, No tenderness Rectal Exam: not done Extremity Exam: non-tender Neurologic Exam: alert, oriented x 3, 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, 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, normal mood/affect, nml cerebellar function, nml station & gait, sensation nml Skin Exam: normal color, warm, dry Lymphatic Exam: No adenopathy SpO2 Interpretation: hypoxic, O2 applied O2 Delivery: Nasal Cannula - Course Nursing assessment & vital signs reviewed: Yes EKG Interpreted by Me: RATE (56), Sinus Rhythm, NORMAL AXIS, NORMAL INTERVALS, NORMAL QRS, Non-specific ST Changes, Other (No acute ischemic changes on today's EKG.) Ordered Tests: Active Orders 24 hr Category Date Time Status EKG-ER Only STAT Care 06/12/22 12:55 Active IV Insertion STAT Care 06/12/22 12:55 Active Pulse Oximetry (ED) STAT Care 06/12/22 12:55 Active CHEST 1 VIEW (PORTABLE) Stat Exams 06/12/22 12:55 Completed BLOOD CULTURE Stat Lab 06/12/22 13:13 Received CBC W DIFF Stat Lab 06/12/22 12:55 Completed CMP Stat Lab 06/12/22 12:54 Completed D-DIMER QUANTITATIVE Stat Lab 06/12/22 12:54 Completed NT PRO BNP Stat Lab 06/12/22 12:54 Completed TROPONIN Q4H Lab 06/12/22 13:13 Completed TROPONIN Q4H Lab 06/12/22 17:00 Ordered TROPONIN Q4H Lab 06/12/22 21:00 Ordered UA W/RFX CULTURE Stat Lab 06/12/22 13:12 Completed Medication Summary Discontinued Medications Generic Name Dose Route Start Last Admin Trade Name Freq PRN Reason Stop Dose Admin Methylprednisolone Sodium 0 mg 06/12/22 12:55 06/12/22 13:18 Succinate 125 mg/ Sterile IV 06/12/22 12:56 125 mg Water 2 ml STAT ONE Administration Methylprednisolone Sodium Succinate Confirm 06/12/22 13:17 Methylprednis Sod Succ 125 Mg/2 Ml Vial Administered 06/12/22 13:18 Dose 125 mg .ROUTE .STK-MED ONE Potassium Chloride 20 meq 06/12/22 13:55 06/12/22 14:18 Potassium Chloride Tab 10 Meq Tab PO 06/12/22 13:56 20 meq STAT ONE Administration Potassium Chloride Confirm 06/12/22 14:18 Potassium Chloride Tab 10 Meq Tab Administered 06/12/22 14:19 Dose 20 meq PO .STK-MED ONE Sterile Water Confirm 06/12/22 13:17 Water For Injection,Sterile 10 Ml Vial Administered 06/12/22 13:18 Dose 10 ml IJ .STK-MED ONE Lab/Rad Data: Laboratory Result Diagrams 06/12/22 12:55 06/12/22 12:54 Laboratory Results 06/12/22 06/12/22 06/12/22 Range/Units 13:13 13:12 13:08 WBC (4.0-10.5) x10^3/uL RBC (4.1-5.4) x10^6/uL Hgb (12.0-16.0) g/dL Hct (35-47) % MCV (78-100) fL MCH (26-32) pg MCHC (32-36) g/dL RDW (11.5-14.0) % Plt Count (150-450) x10^3/uL MPV (7.5-11.0) fL Gran % (36.0-66.0) % Immature Gran % (Auto) (0.00-0.4) % Nucleat RBC Rel Count (0.00-0.1) % Eos # (Auto) (0-0.5) x10^3/uL Immature Gran # (Auto) (0.00-0.03) x10^3u/L Absolute Lymphs (auto) (1.0-4.6) x10^3/uL Absolute Monos (auto) (0.0-1.3) x10^3/uL Absolute Nucleated RBC (0.00-0.01) x10^3u/L Lymphocytes % (24.0-44.0) % Monocytes % (0.0-12.0) % Eosinophils % (0.00-5.0) % Basophils % (0.0-0.4) % Absolute Granulocytes (1.4-6.9) x10^3/uL Basophils # (0-0.4) x10^3/uL D-Dimer (0.0-0.50) mg/L Sodium (137-145) mmol/L Potassium (3.5-5.1) mmol/L Chloride (98-107) mmol/L Carbon Dioxide (22-30) mmol/L Anion Gap (5-15) MEQ/L BUN (7-17) mg/dL Creatinine (0.52-1.04) mg/dL Estimated GFR ML/MIN Glucose (74-106) mg/dL Calcium (8.4-10.2) mg/dL Total Bilirubin (0.2-1.3) mg/dL AST (14-36) U/L ALT (0-35) U/L Alkaline Phosphatase (38-126) U/L Troponin I < 0.012 (0.000-0.034) ng/mL NT-Pro-B Natriuret Pep (0-450) pg/mL Serum Total Protein (6.3-8.2) g/dL Albumin (3.5-5.0) g/dL Urinalys Dipstick Clnc MAIN LAB Urine Color YELLOW (YELLOW) Urine Appearance CLEAR (CLEAR) Urine pH 6.5 (5-6) Ur Specific [place] 1.025 (1.005-1.025) POC Urine Protein Conf NEGATIVE (Negative) Urine Ketones NEGATIVE (NEGATIVE) Urine Nitrite NEGATIVE (NEGATIVE) Urine Bilirubin NEGATIVE (NEGATIVE) Urine Urobilinogen 0.2 (0-1) mg/dL Urine Leukocytes NEGATIVE (NEGATIVE) Urine WBC (Auto) NONE (0-5) /HPF Urine RBC (Auto) NONE (0-2) /HPF U Epithel Cells (Auto) NONE (FEW) /HPF Urine Bacteria (Auto) NONE (NEGATIVE) /HPF Urine RBC NEGATIVE (0-5) Curry/ul Urine Mucus (Auto) SLIGHT (NEGATIVE) /HPF Ur Culture Indicated? NO Urine Glucose 100 (NEGATIVE) mg/dL Influenza Type A Ag NEGATIVE (NEGATIVE) Influenza Type B Ag NEGATIVE (NEGATIVE) RSV (PCR) NEGATIVE (Negative) SARS-CoV-2 (PCR) NEGATIVE (NEGATIVE) 06/12/22 06/12/22 06/12/22 Range/Units 12:55 12:54 12:54 WBC 7.6 (4.0-10.5) x10^3/uL RBC 4.53 (4.1-5.4) x10^6/uL Hgb 13.7 (12.0-16.0) g/dL Hct 41.8 (35-47) % MCV 92.3 (78-100) fL MCH 30.2 (26-32) pg MCHC 32.8 (32-36) g/dL RDW 13.0 (11.5-14.0) % Plt Count 266 (150-450) x10^3/uL MPV 9.2 (7.5-11.0) fL Gran % 69.6 H (36.0-66.0) % Immature Gran % (Auto) 0.8 H (0.00-0.4) % Nucleat RBC Rel Count 0.0 (0.00-0.1) % Eos # (Auto) 0.16 (0-0.5) x10^3/uL Immature Gran # (Auto) 0.06 H (0.00-0.03) x10^3u/L Absolute Lymphs (auto) 1.65 (1.0-4.6) x10^3/uL Absolute Monos (auto) 0.43 (0.0-1.3) x10^3/uL Absolute Nucleated RBC 0.00 (0.00-0.01) x10^3u/L Lymphocytes % 21.6 L (24.0-44.0) % Monocytes % 5.6 (0.0-12.0) % Eosinophils % 2.1 (0.00-5.0) % Basophils % 0.3 (0.0-0.4) % Absolute Granulocytes 5.31 (1.4-6.9) x10^3/uL Basophils # 0.02 (0-0.4) x10^3/uL D-Dimer 0.37 (0.0-0.50) mg/L Sodium 139 (137-145) mmol/L Potassium 2.9 L* (3.5-5.1) mmol/L Chloride 98 (98-107) mmol/L Carbon Dioxide 33 H (22-30) mmol/L Anion Gap 10.7 (5-15) MEQ/L BUN 10 (7-17) mg/dL Creatinine 0.58 (0.52-1.04) mg/dL Estimated GFR > 60.0 ML/MIN Glucose 105 (74-106) mg/dL Calcium 8.6 (8.4-10.2) mg/dL Total Bilirubin 0.70 (0.2-1.3) mg/dL AST 22 (14-36) U/L ALT 24 (0-35) U/L Alkaline Phosphatase 98 (38-126) U/L Troponin I (0.000-0.034) ng/mL NT-Pro-B Natriuret Pep 189 (0-450) pg/mL Serum Total Protein 7.3 (6.3-8.2) g/dL Albumin 4.5 (3.5-5.0) g/dL Urinalys Dipstick Clnc Urine Color (YELLOW) Urine Appearance (CLEAR) Urine pH (5-6) Ur Specific [place] (1.005-1.025) POC Urine Protein Conf (Negative) Urine Ketones (NEGATIVE) Urine Nitrite (NEGATIVE) Urine Bilirubin (NEGATIVE) Urine Urobilinogen (0-1) mg/dL Urine Leukocytes (NEGATIVE) Urine WBC (Auto) (0-5) /HPF Urine RBC (Auto) (0-2) /HPF U Epithel Cells (Auto) (FEW) /HPF Urine Bacteria (Auto) (NEGATIVE) /HPF Urine RBC (0-5) Curry/ul Urine Mucus (Auto) (NEGATIVE) /HPF Ur Culture Indicated? Urine Glucose (NEGATIVE) mg/dL Influenza Type A Ag (NEGATIVE) Influenza Type B Ag (NEGATIVE) RSV (PCR) (Negative) SARS-CoV-2 (PCR) (NEGATIVE) - Progress Progress: improved, re-examined Air Movement: fair Progress Note: 06/12/22 13:32 Chest x-ray shows no acute cardiopulmonary process. 06/12/22 15:03 Medical decision making: This patient has had an acute exacerbation of asthma. Patient states she is breathing much better now than she has in the last 2 days. Her room air oxygenation is 98%. Patient's D-dimer is negative her troponin level is negative. Chest x-ray is clear and without evidence of infection. Patient wants to go home and I think this is reasonable. She already has doxycycline and prednisone prescription at her pharmacy. Blood Culture(s) Obtained: Yes Counseled pt/family regarding: lab results, diagnosis, need for follow-up, rad results - Departure Departure Disposition: Home Clinical Impression: Acute severe exacerbation of asthma Condition: Stable Critical Care Time: No Referrals: [facility]RI[facility] IN[facility] [Primary Care Provider] - Follow up/PCP as directed Additional Instructions: Fill the prescriptions that have been written for you at your pharmacy. Continue your breathing treatments as prescribed. Return to the emergency department symptoms recur. Forms: Work/School Release Form
[2022-06-12] MEDS ORDERED: solu-MEDROL 125 MG, Sterile H2O 10 ml 2 ML IV ONE ×2 (12:55)
[2022-06-12 13:08] VITALS: BP 177/74; PULSE 64; O2SAT 100
[2022-06-12] MEDS ORDERED: Sterile H2O 10 ml IJ ONE (13:17)
[2022-06-12] MEDS ORDERED: solu-MEDROL ONE (13:17)
--- NOTE | 2022-06-12 13:20 | XRAY ---
Indication: Short of breath. Comparison: June 15, 2021 Portable chest again demonstrates normal heart and lungs. Bony thorax intact again with minimal dextroscoliosis. No new/acute findings.
[2022-06-12 13:29] LABS: Absolute Neutrophil Ct (ANC) 5.31 x10^3/uL (1.4-6.9); Basophil (Absolute #) 0.02 x10^3/uL (0-0.4); Eosinophil % 2.1 % (0.00-5.0); Eosinophil (Absolute #) 0.16 x10^3/uL (0-0.5); Hematocrit 41.8 % (35-47); Hemoglobin 13.7 g/dL (12.0-16.0); Lymphocyte (Absolute #) 1.65 x10^3/uL (1.0-4.6); Lymphocytes % 21.6 % (24.0-44.0); Mean Cell Volume 92.3 fL (78-100); Mean Corpuscular Hemoglobin 30.2 pg (26-32); Mean Corpuscular Hgb Concent. 32.8 g/dL (32-36); Mean Platelet Volume 9.2 fL (7.5-11.0); Monocyte (Absolute #) 0.43 x10^3/uL (0.0-1.3); Monocytes % 5.6 % (0.0-12.0); Neutrophil % 69.6 % (36.0-66.0); Platelet Count 266 x10^3/uL (150-450); Red Blood Count 4.53 x10^6/uL (4.1-5.4); White Blood Count 7.6 x10^3/uL (4.0-10.5)
[2022-06-12 13:37] LABS: Mucus SLIGHT /HPF (NEGATIVE)
[2022-06-12 13:38] LABS: Appearance CLEAR (CLEAR); Bilirubin NEGATIVE (NEGATIVE); Dipstick done @ ? MAIN LAB; Glucose 100 mg/dL (NEGATIVE); Ketones NEGATIVE (NEGATIVE); Nitrite NEGATIVE (NEGATIVE); Ph 6.5 (5-6); Protein,Urine Dip NEGATIVE (Negative); RBC NEGATIVE Ery/ul (0-5); Specific Gravity 1.025 (1.005-1.025); Urine Cultured Indicated? NO; Urobilinogen 0.2 mg/dL (0-1)
[2022-06-12 13:53] LABS: ALBUMIN 4.5 g/dL (3.5-5.0); ALKALINE PHOSPHATASE 98 U/L (38-126); ANION GAP 10.7 MEQ/L (5-15); BLOOD UREA NITROGEN 10 mg/dL (7-17); CHLORIDE 98 mmol/L (98-107); Calcium 8.6 mg/dL (8.4-10.2); Carbon Dioxide 33 mmol/L (22-30); Creatinine 1 0.58 mg/dL (0.52-1.04); EST GLOMERULAR FILTRATION RATE > 60.0 ML/MIN; Glucose 105 mg/dL (74-106); NT PRO BNP 189 pg/mL (0-450); SGOT/AST 22 U/L (14-36); SGPT/ALT 24 U/L (0-35); SODIUM 139 mmol/L (137-145); Total Protein 7.3 g/dL (6.3-8.2)
[2022-06-12 13:54] LABS: Potassium 2.9 mmol/L (3.5-5.1)
[2022-06-12] MEDS ORDERED: Klor Con PO ONE ×2 (13:55→14:18)
[2022-06-12 14:07] LABS: INFLUENZA A NEGATIVE (NEGATIVE); INFLUENZA B NEGATIVE (NEGATIVE); RESPIRATORY SYNCTIAL VIRUS NEGATIVE (Negative); SARS-CoV-2 Xpert Express NEGATIVE (NEGATIVE)
== END 2022-06-12 15:13 | disposition home or self-care (01) ==
LOC: ED 12:41
DX: J45.901 Unspecified asthma with (acute) exacerbation (principal); R06.02 Shortness of breath; E78.5 Hyperlipidemia, unspecified; I10 Essential (primary) hypertension; E11.9 Type 2 diabetes mellitus without complications; Z79.84 Long term (current) use of oral hypoglycemic drugs; Z79.52 Long term (current) use of systemic steroids; Z79.899 Other long term (current) drug therapy
CPT/HCPCS: 0241U; 36000; 36415; 71045; 80053; 81015; 83880; 84484; 85025; 85379; 87040; 93005; 94760; 96374; 99284; J2930; A9270-GY

== ENCOUNTER 2022-06-20 15:11 | Observation (INO) | payer OTHER ==
[2022-06-20] MEDS ORDERED: Sodium Chloride 0.9% 1000 ML 1,000 ML IV SCH (15:30)
[2022-06-20] MEDS ORDERED: Sodium Chloride 0.9% 1000 ML 1,000 ML ONE ×3 (15:48→17:34)
[2022-06-20 15:50] LABS: Absolute Neutrophil Ct (ANC) 9.04 x10^3/uL (1.4-6.9); Basophil (Absolute #) 0.04 x10^3/uL (0-0.4); Eosinophil % 0.3 % (0.00-5.0); Eosinophil (Absolute #) 0.03 x10^3/uL (0-0.5); Hematocrit 39.9 % (35-47); Hemoglobin 13.3 g/dL (12.0-16.0); Lymphocyte (Absolute #) 1.58 x10^3/uL (1.0-4.6); Lymphocytes % 13.7 % (24.0-44.0); Mean Cell Volume 90.7 fL (78-100); Mean Corpuscular Hemoglobin 30.2 pg (26-32); Mean Corpuscular Hgb Concent. 33.3 g/dL (32-36); Mean Platelet Volume 9.4 fL (7.5-11.0); Monocyte (Absolute #) 0.45 x10^3/uL (0.0-1.3); Monocytes % 3.9 % (0.0-12.0); Neutrophil % 78.3 % (36.0-66.0); Platelet Count 332 x10^3/uL (150-450); White Blood Count 11.6 x10^3/uL (4.0-10.5)
[2022-06-20 16:05] LABS: D-DIMER QUANTITATIVE 0.26 mg/L (0.0-0.50); INR 1.03 (0.8-3.0); PROTIME 10.9 SECONDS (9.4-12.5); PTT < 20.0 SECONDS (25.1-36.5)
[2022-06-20 16:09] LABS: SGPT/ALT 38 U/L (0-35)
[2022-06-20 16:11] LABS: ALKALINE PHOSPHATASE 101 U/L (38-126); BLOOD UREA NITROGEN 17 mg/dL (7-17); CHLORIDE 98 mmol/L (98-107); Calcium 9.1 mg/dL (8.4-10.2); Carbon Dioxide 23 mmol/L (22-30); Creatinine 1 0.67 mg/dL (0.52-1.04); EST GLOMERULAR FILTRATION RATE > 60.0 ML/MIN; Glucose 299 mg/dL (74-106); MAGNESIUM 1.5 mg/dL (1.6-2.3); NT PRO BNP 124 pg/mL (0-450); Potassium 3.1 mmol/L (3.5-5.1); SGOT/AST 22 U/L (14-36); SODIUM 136 mmol/L (137-145); Total Protein 6.1 g/dL (6.3-8.2)
--- NOTE | 2022-06-20 16:26 | ERPHSYRPT ---
- History of Present Illness Time Seen by Provider: 06/20/22 15:25 Source: patient Exam Limitations: no limitations Patient Subjective Stated Complaint: SOB Triage Nursing Assessment: Patient ambulated back to ED and transferred self to bed. Patient A+O X 3. Patient's skin flushed, warm and dry. Patient complains of SOB for the past 10 days. Patient has already been seen in [facility] and ER last week. Patient complains of now running a temp. Patient complains of non productive cough. Lungs noted to be diminished. 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 She has been sick for 3 weeks she has been seen at [facility] and she has been seen in the ER and she has seen Dr. Christine beltrán. She has had 3 shots for 3 days in a row of steroids and she is also had oral steroids from the ER. She has tested COVID-negative she has been sick for the last 10 days increasing shortness of breath and her O2 sats falls into the upper 80s at times. Timing/Duration: week(s) (3) Activities at Onset: none Severity of Dyspnea-Max: moderate Severity of Dyspnea-Current: moderate Possible Cause: occasional episodes Associated Symptoms: cough, chest pain/discomfort, heaviness Allergies/Adverse Reactions: celecoxib [From Celebrex] Allergy (Severe, Verified 06/20/22 15:14) Swelling latex Allergy (Severe, Verified 06/20/22 15:14) penicillin G Allergy (Intermediate, Verified 06/20/22 15:14) Hives Penicillins Allergy (Unknown, Verified 06/20/22 15:14) lisinopril Allergy (Verified 06/20/22 15:14) Home Medications: Albuterol Sulfate [Proventil] 2.5 mg IH DAILY PRN PRN 10/13/12 [History] Montelukast Sodium 10 mg [Singulair 10 MG] 10 mg PO HS 10/13/12 [History] Metoprolol Succinate [Toprol Xl] 100 mg PO BID 01/19/17 [History] Fluticasone/Salmeterol 230/21* [Advair Hfa 230/21 Mcg MDI] 2 puff IH BIDRT 04/05/17 [History] Furosemide 40 mg [Lasix 40 MG] 40 mg PO DAILY PRN PRN 04/05/17 [History] Liraglutide [Victoza 2-Glenn] 1.8 mg SQ DAILY 04/05/17 [History] Losartan Potassium 100 mg PO DAILY 04/05/17 [History] Metformin HCl [Metformin ER Osmotic] 500 mg PO BID 04/05/17 [History] Omeprazole 20 MG [Prilosec 20 mg] 20 mg PO DAILY 04/05/17 [History] Diltiazem HCl Cd [Cardizem CD ] 120 mg PO DAILY 07/08/18 [History] Paroxetine HCl 20 mg [Paxil 20 MG] 40 mg PO DAILY 07/08/18 [History] Hydrocodone/APAP 10/325 mg [[place] 10/325 MG TableT] 1 tab PO TIDPRN PRN 01/08/20 [History] Nitroglycerin 0.4 mg Tablet [Nitrostat 0.4 MG Tablet] 0.4 mg SL UD 01/08/20 [History] Dupilumab [Dupixent Syringe] 300 mg SQ DIRECTIONS UNKNOWN 01/07/21 [History] Fexofenadine HCl [Sally] 30 mg PO DAILY 01/07/21 [History] Meloxicam [Mobic] 7.5 mg PO BID 01/07/21 [History] Metaxalone [Skelaxin] 800 mg PO DAILY PRN 01/07/21 [History] Tamsulosin HCl [Flomax] 0.4 mg PO DAILY 01/07/21 [History] Tiotropium [place] [Spiriva Handihaler] 18 mcg IH DAILY 01/07/21 [History] ondansetron HCL [Zofran] 4 mg PO BID PRN 01/07/21 [History] Isosorbide Mononitrate 30 mg [Imdur 30 MG] 1 tab PO DAILY 08/17/21 [History] Simvastatin [Zocor] 1 tab PO HS 08/17/21 [History] Hx Tetanus, Diphtheria Vaccination/Date Given: Yes Hx Influenza Vaccination/Date Given: Yes Hx Pneumococcal Vaccination/Date Given: No Immunizations Up to Date: Yes Travel Risk - International Travel Have you traveled outside of the country in past 3 weeks: No - Coronavirus Screening Are you exhibiting any of the following symptoms?: No Close contact with a COVID-19 positive Pt in past 14-21 Days: No - Vaccine Status Have you recieved a Covid-19 vaccination: Yes 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: [employer] - Vaccination Dates Date of 2cond Vaccination (if applicable): 08/30/2020 - Review of Systems Constitutional: No Fever, No Chills Eyes: No Symptoms Ears, Nose, & Throat: No Symptoms Respiratory: Dyspnea, Dyspnea on Exertion (HERNANDEZ), No Cough Cardiac: No Chest Pain, No Edema, No Syncope Abdominal/Gastrointestinal: No Abdominal Pain, No Nausea, No Vomiting, No Diarrhea Genitourinary Symptoms: No Dysuria Musculoskeletal: No Back Pain, No Neck Pain Skin: No Rash Neurological: No Dizziness, No Focal Weakness, No Sensory Changes Psychological: No Symptoms Endocrine: No Symptoms All Other Systems: Reviewed and Negative - Past Medical History Pertinent Past Medical History: Yes Neurological History: No Pertinent History ENT History: No Pertinent History Cardiac History: Hypertension Respiratory History: Asthma Endocrine Medical History: No Pertinent History Musculoskeletal History: Other GI Medical History: No Pertinent History History: Other Psycho-Social History: No Pertinent History Female Reproductive Disorders: No Pertinent History, Fibroids Other Medical History: CATIE BUNIONECTOMY, STRESS FX LEFT FOOT, CHOLECYSTECTOMY, C-SECTIONS, HYSTERECTOMY, TONSILLECTOMY, Anemia - Past Surgical History Past Surgical History: Yes Neuro Surgical History: No Pertinent History Cardiac: No Pertinent History Respiratory: No Pertinent History Gastrointestinal: Appendectomy, Cholecystectomy Genitourinary: No Pertinent History Musculoskeletal: Orthopedic Surgery, Other Female Surgical History: Hysterectomy, Section Other Surgical History: tonsils, Bilateral feet-bunionectomy , screws to catie 2nd toes. - Social History Smoking Status: Never smoker Exposure to second hand smoke: No Drug Use: none Patient Lives Alone: No Significant Family History: diabetes, hypertension - Female History Hx Last Menstrual Period: hysterectomy Hx Now: No - Nursing Vital Signs Nursing Vital Signs: Initial Vital Signs Temperature 97.6 F 06/20/22 15:14 Pulse Rate 83 06/20/22 15:14 Respiratory Rate 19 06/20/22 15:14 Blood Pressure 140/80 06/20/22 15:14 O2 Sat by Pulse Oximetry 98 06/20/22 15:14 Pain Scale Pain Intensity 0 - Physical Exam General Appearance: mild distress, alert Eye Exam: PERRL/EOMI Neck Exam: normal inspection, supple Respiratory Exam: lungs clear, respiratory distress (Mild) Cardiovascular/Chest Exam: normal heart sounds, regular rate/rhythm Abdominal/Gastrointestinal Exam: soft, No tenderness, No distention, No mass Extremity Exam: non-tender, normal range of motion, normal inspection, no calf tenderness, no pedal edema Neurologic Exam: alert, oriented x 3, cooperative, 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, sensation nml, No motor deficits Skin Exam: normal color, warm, No dry SpO2 Interpretation: normal SpO2: 98 O2 Delivery: Room Air - Course Nursing assessment & vital signs reviewed: Yes EKG Interpreted by Me: RATE (79), NORMAL AXIS, NORMAL INTERVALS, Non-specific ST Changes, Other (LVH by voltage) Ordered Tests: Active Orders 24 hr Category Date Time Status EKG-ER Only STAT Care 06/20/22 15:29 Active IV Insertion STAT Care 06/20/22 15:29 Active IV Insertion-2nd Peripheral STAT Care 06/20/22 16:38 Active ABG [ARTERIAL BLOOD GASES] Stat Lab 06/20/22 16:54 Completed BLOOD CULTURE Stat Lab 06/20/22 16:35 Received CBC W DIFF Stat Lab 06/20/22 15:29 Completed CMP Stat Lab 06/20/22 15:53 Completed D-DIMER QUANTITATIVE Stat Lab 06/20/22 15:53 Completed Lactic Acid Stat Lab 06/20/22 15:29 Completed MAGNESIUM Stat Lab 06/20/22 15:53 Completed NT PRO BNP Stat Lab 06/20/22 15:53 Completed PROTIME WITH INR Stat Lab 06/20/22 15:53 Completed PTT Stat Lab 06/20/22 15:53 Completed TROPONIN Q4H Lab 06/20/22 15:53 Completed TROPONIN Q4H Lab 06/20/22 19:30 Ordered TROPONIN Q4H Lab 06/20/22 23:30 Ordered UA W/RFX CULTURE Stat Lab 06/20/22 16:42 Received Medication Summary Generic Name Dose Route Start Last Admin Trade Name Freq PRN Reason Stop Dose Admin Sodium Chloride 1,000 mls @ 50 mls/hr 06/20/22 15:30 06/20/22 16:22 Sodium Chloride 0.9% 1000 Ml IV 07/20/22 15:29 999 mls/hr .Q20H ELOY Infusion Sodium Chloride 1,000 mls @ 999 mls/hr 06/20/22 16:39 06/20/22 16:40 Sodium Chloride 0.9% 1000 Ml IV 06/20/22 17:39 999 mls/hr .Q1H1M STA Administration Lab/Rad Data: Laboratory Result Diagrams 06/20/22 15:29 06/20/22 15:53 Laboratory Results 06/20/22 06/20/22 06/20/22 Range/Units 16:54 15:53 15:53 WBC (4.0-10.5) x10^3/uL RBC (4.1-5.4) x10^6/uL Hgb (12.0-16.0) g/dL Hct (35-47) % MCV (78-100) fL MCH (26-32) pg MCHC (32-36) g/dL RDW (11.5-14.0) % Plt Count (150-450) x10^3/uL MPV (7.5-11.0) fL Gran % (36.0-66.0) % Immature Gran % (Auto) (0.00-0.4) % Nucleat RBC Rel Count (0.00-0.1) % Eos # (Auto) (0-0.5) x10^3/uL Immature Gran # (Auto) (0.00-0.03) x10^3u/L Absolute Lymphs (auto) (1.0-4.6) x10^3/uL Absolute Monos (auto) (0.0-1.3) x10^3/uL Absolute Nucleated RBC (0.00-0.01) x10^3u/L Lymphocytes % (24.0-44.0) % Monocytes % (0.0-12.0) % Eosinophils % (0.00-5.0) % Basophils % (0.0-0.4) % Absolute Granulocytes (1.4-6.9) x10^3/uL Basophils # (0-0.4) x10^3/uL PT 10.9 (9.4-12.5) SECONDS INR 1.03 (0.8-3.0) APTT < 20.0 L (25.1-36.5) SECONDS D-Dimer 0.26 (0.0-0.50) mg/L Puncture Site RIGHT RADIAL pCO2 32 L (35-45) mmHg pO2 100 (75-100) mmHg Base Excess -1.8 (-2.0-2.0) O2 Saturation 98.0 (94-100) g/dF ABG pH 7.44 (7.35-7.45) ABG HCO3 21.7 L (22-28) ABG O2 Sat (Measured) 99.4 (95-100) % Phill Test YES A-a Gradient 10 a/A Ratio 0.91 Hemoglobin 12.0 Carboxyhemoglobin 1.0 (0.0-6.9) % THgb Methemoglobin 0.5 L (1.4-1.5) % Temperature 37.0 C POC O2 Flow Rate 21 % Sodium (137-145) mmol/L Potassium 3.0 L (3.5-5.1) mmol/L Chloride (98-107) mmol/L Carbon Dioxide (22-30) mmol/L Anion Gap (5-15) MEQ/L BUN (7-17) mg/dL Creatinine (0.52-1.04) mg/dL Estimated GFR ML/MIN Glucose (74-106) mg/dL Lactic Acid (0.4-2.0) Calcium (8.4-10.2) mg/dL Magnesium (1.6-2.3) mg/dL Total Bilirubin (0.2-1.3) mg/dL AST (14-36) U/L ALT (0-35) U/L Alkaline Phosphatase (38-126) U/L Troponin I < 0.012 (0.000-0.034) ng/mL NT-Pro-B Natriuret Pep (0-450) pg/mL Serum Total Protein (6.3-8.2) g/dL Albumin (3.5-5.0) g/dL 06/20/22 06/20/22 06/20/22 Range/Units 15:53 15:29 15:29 WBC 11.6 H (4.0-10.5) x10^3/uL RBC 4.40 (4.1-5.4) x10^6/uL Hgb 13.3 (12.0-16.0) g/dL Hct 39.9 (35-47) % MCV 90.7 (78-100) fL MCH 30.2 (26-32) pg MCHC 33.3 (32-36) g/dL RDW 13.0 (11.5-14.0) % Plt Count 332 (150-450) x10^3/uL MPV 9.4 (7.5-11.0) fL Gran % 78.3 H (36.0-66.0) % Immature Gran % (Auto) 3.5 H (0.00-0.4) % Nucleat RBC Rel Count 0.0 (0.00-0.1) % Eos # (Auto) 0.03 (0-0.5) x10^3/uL Immature Gran # (Auto) 0.41 H (0.00-0.03) x10^3u/L Absolute Lymphs (auto) 1.58 (1.0-4.6) x10^3/uL Absolute Monos (auto) 0.45 (0.0-1.3) x10^3/uL Absolute Nucleated RBC 0.00 (0.00-0.01) x10^3u/L Lymphocytes % 13.7 L (24.0-44.0) % Monocytes % 3.9 (0.0-12.0) % Eosinophils % 0.3 (0.00-5.0) % Basophils % 0.3 (0.0-0.4) % Absolute Granulocytes 9.04 H (1.4-6.9) x10^3/uL Basophils # 0.04 (0-0.4) x10^3/uL PT (9.4-12.5) SECONDS INR (0.8-3.0) APTT (25.1-36.5) SECONDS D-Dimer (0.0-0.50) mg/L Puncture Site pCO2 (35-45) mmHg pO2 (75-100) mmHg Base Excess (-2.0-2.0) O2 Saturation (94-100) g/dF ABG pH (7.35-7.45) ABG HCO3 (22-28) ABG O2 Sat (Measured) (95-100) % Phill Test A-a Gradient a/A Ratio Hemoglobin Carboxyhemoglobin (0.0-6.9) % THgb Methemoglobin (1.4-1.5) % Temperature C POC O2 Flow Rate % Sodium 136 L (137-145) mmol/L Potassium 3.1 L (3.5-5.1) mmol/L Chloride 98 (98-107) mmol/L Carbon Dioxide 23 (22-30) mmol/L Anion Gap 18.0 H (5-15) MEQ/L BUN 17 (7-17) mg/dL Creatinine 0.67 (0.52-1.04) mg/dL Estimated GFR > 60.0 ML/MIN Glucose 299 H (74-106) mg/dL Lactic Acid 8.3 H (0.4-2.0) Calcium 9.1 (8.4-10.2) mg/dL Magnesium 1.5 L (1.6-2.3) mg/dL Total Bilirubin 0.60 (0.2-1.3) mg/dL AST 22 (14-36) U/L ALT 38 H (0-35) U/L Alkaline Phosphatase 101 (38-126) U/L Troponin I (0.000-0.034) ng/mL NT-Pro-B Natriuret Pep 124 (0-450) pg/mL Serum Total Protein 6.1 L (6.3-8.2) g/dL Albumin 4.0 (3.5-5.0) g/dL - Progress Progress: improved Air Movement: good Blood Culture(s) Obtained: Yes Antibiotics given: No Discussed with : Katiana Will see patient in: hospital (observation) - Departure Departure Disposition: Observation Clinical Impression: Lactic acidosis Condition: Stable Critical Care Time: No Referrals: MERRILL INGRAM [Primary Care Provider] - Follow up/PCP as directed Instructions: Shortness of Breath (Dyspnea) (DC)
[2022-06-20] MEDS ORDERED: Sodium Chloride 0.9% 1000 ML 1,000 ML IV STA (16:39)
[2022-06-20 17:09] LABS: A-aADO2 10; ARTERIAL BLD GAS O2 SATURATION 99.4 % (95-100); ARTERIAL BLOOD GAS BASE EXCESS -1.8 (-2.0-2.0); ARTERIAL BLOOD GAS FIO2 21 %; ARTERIAL BLOOD GAS PCO2 32 mmHg (35-45); ARTERIAL BLOOD GAS PO2 100 mmHg (75-100); ARTERIAL BLOOD GAS pH 7.44 (7.35-7.45); HCO3- 21.7 (22-28); Methhemoglobin 0.5 % (1.4-1.5)
[2022-06-20 17:10] LABS: ABG SITE RIGHT RADIAL; ALLEN TEST OK? YES
[2022-06-20] MEDS ORDERED: K-LYTE PO ONE (17:28)
[2022-06-20] MEDS ORDERED: K-LYTE ONE (17:34)
[2022-06-20] MEDS: Sodium Chloride 0.9% 1000 ML 1,000 ML IV SCH (17:36)
[2022-06-20 17:49] LABS: INFLUENZA A NEGATIVE (NEGATIVE); INFLUENZA B NEGATIVE (NEGATIVE); RESPIRATORY SYNCTIAL VIRUS NEGATIVE (Negative); SARS-CoV-2 Xpert Express NEGATIVE (NEGATIVE)
[2022-06-20 17:55] LABS: Appearance CLEAR (CLEAR); Bilirubin NEGATIVE (NEGATIVE); Dipstick done @ ? MAIN LAB; Glucose 500 mg/dL (NEGATIVE); Ketones NEGATIVE (NEGATIVE); Nitrite NEGATIVE (NEGATIVE); Ph 5.5 (5-6); Protein,Urine Dip NEGATIVE (Negative); RBC NEGATIVE Ery/ul (0-5); Urobilinogen 0.2 mg/dL (0-1)
[2022-06-20 17:56] LABS: Bacteria NONE SEEN /HPF (NEGATIVE); RBC NONE SEEN /HPF (0-2); Urine Cultured Indicated? NO; WBC NONE SEEN /HPF (0-5)
[2022-06-20] MEDS ORDERED: VENTOLIN COMMON CANISTER IH PRN (19:41)
[2022-06-20] MEDS ORDERED: ECOTRIN 81 MG PO ONE (21:09)
[2022-06-20] MEDS ORDERED: ZOCOR 20MG PO ONE (21:11)
[2022-06-20] MEDS ORDERED: CLARITIN 10 MG PO ONE (21:12)
[2022-06-20] MEDS ORDERED: Toprol-Xl 25MG Tablets PO ONE (21:14)
[2022-06-20] MEDS ORDERED: Singulair 10 MG PO ONE (21:15)
[2022-06-20] MEDS ORDERED: Cozaar 50 MG ONE (21:23)
[2022-06-20] MEDS ORDERED: Zithromax 500 MG/ 250 ML NaCl Premix 500 MG/250 ML IVPB IV ONE (21:41)
[2022-06-20] MEDS ORDERED: ROCEPHIN 1 Gm-D5w 50 ml Bag** 1 G/50 ML IVPB IV ONE (21:41)
[2022-06-20] MEDS ORDERED: ROCEPHIN 1 Gm-D5w 50 ml Bag** 1 G/50 ML IVPB IV SCH (22:00)
[2022-06-20] MEDS ORDERED: Zithromax 500 MG/ 250 ML NaCl Premix 500 MG/250 ML IVPB IV SCH (22:00)
[2022-06-20] MEDS: Sodium Chloride 0.9% W/ 20 mEq KCl/LITER 1,000 ML IV SCH (23:24)
[2022-06-21 05:10] LABS: A-aADO2 -27; ABG HEMOGLOBIN 11.9; ABG POTASSIUM 3.5 (3.5-5.1); ABG SITE LEFT BRACHIAL; ARTERIAL BLD GAS O2 SATURATION 99.2 % (95-100); ARTERIAL BLOOD GAS BASE EXCESS 4.8 (-2.0-2.0); ARTERIAL BLOOD GAS FIO2 21 %; ARTERIAL BLOOD GAS PCO2 36 mmHg (35-45); ARTERIAL BLOOD GAS PO2 132 mmHg (75-100); HCO3- 28.1 (22-28); HGB O2 SAT 95.5 g/dF (94-100); Lactic Acid 2.7 (0.4-2.0); Methhemoglobin 0.7 % (1.4-1.5)
[2022-06-21 05:12] LABS: Absolute Neutrophil Ct (ANC) 4.78 x10^3/uL (1.4-6.9); Basophil (Absolute #) 0.03 x10^3/uL (0-0.4); Eosinophil % 0.4 % (0.00-5.0); Eosinophil (Absolute #) 0.03 x10^3/uL (0-0.5); Hematocrit 32.8 % (35-47); Hemoglobin 11.4 g/dL (12.0-16.0); Lymphocyte (Absolute #) 1.72 x10^3/uL (1.0-4.6); Lymphocytes % 24.2 % (24.0-44.0); Mean Cell Volume 87.2 fL (78-100); Mean Corpuscular Hemoglobin 30.3 pg (26-32); Mean Corpuscular Hgb Concent. 34.8 g/dL (32-36); Monocyte (Absolute #) 0.27 x10^3/uL (0.0-1.3); Monocytes % 3.8 % (0.0-12.0); Neutrophil % 67.4 % (36.0-66.0); Platelet Count 236 x10^3/uL (150-450); Red Blood Count 3.76 x10^6/uL (4.1-5.4); Red Cell Distribution Width 13.1 % (11.5-14.0); White Blood Count 7.1 x10^3/uL (4.0-10.5)
[2022-06-21 05:46] LABS: ALBUMIN 3.2 g/dL (3.5-5.0); ALKALINE PHOSPHATASE 71 U/L (38-126); BLOOD UREA NITROGEN 9 mg/dL (7-17); CHLORIDE 104 mmol/L (98-107); Calcium 7.3 mg/dL (8.4-10.2); Carbon Dioxide 28 mmol/L (22-30); Creatinine 1 0.48 mg/dL (0.52-1.04); EST GLOMERULAR FILTRATION RATE > 60.0 ML/MIN; Glucose 119 mg/dL (74-106); MAGNESIUM 1.5 mg/dL (1.6-2.3); Potassium 3.5 mmol/L (3.5-5.1); SGOT/AST 14 U/L (14-36); SGPT/ALT 23 U/L (0-35); SODIUM 137 mmol/L (137-145); Total Protein 5.3 g/dL (6.3-8.2)
[2022-06-21] MEDS: Sodium Chloride 0.9% 1000 ML 1,000 ML IV SCH (05:57)
[2022-06-21] MEDS: Sodium Chloride 0.9% W/ 20 mEq KCl/LITER 1,000 ML IV SCH ×3 (06:51→23:39)
[2022-06-21] MEDS ORDERED: MAGNESIUM SULF 2 G/50 ML BAG 2 GM/50 ML PIGGYBACK IV ONE (06:53)
[2022-06-21] MEDS ORDERED: Magnesium 1 Gm / 100 Ml D5W*** 0 ML IV ONE (06:58)
[2022-06-21] MEDS: Tums EX 750 MG PO SCH ×4 (07:45→21:08)
--- NOTE | 2022-06-21 09:05 | XRAY ---
Indication: Short of breath and dizziness. Comparison: June 12, 2022 PA/lateral chest again demonstrates normal heart and lungs. Bony thorax intact. No new/acute findings. Comment: Preliminary interpretation made by [facility]. No critical discrepancy.
--- NOTE | 2022-06-21 09:05 | XRAY ---
Indication: Short of breath and elevated WBC/lactic acid. Multiple contiguous axial images obtained through the chest without contrast. Comparison: None Lungs inflated with 8 mm indeterminant posterior medial right lower lobe noncalcified nodule. Heart is not enlarged. Aorta minimally atherosclerotic without aneurysm. No pathologic mediastinal lymphadenopathy. Bony thorax intact with minimal degenerative changes throughout the spine. Posterior right breast demonstrates 2 cm well-circumscribed cyst (image 27, series 2). Limited upper abdomen demonstrates mild fatty liver and cholecystectomy clips. Impression: 1. 8 mm indeterminate right lower lobe noncalcified nodule. Finding possibly granulomatous in this demographic. Outside comparison studies recommended if available. If not recommend follow-up per Fleischner guidelines. Remaining CT chest without contrast exam is negative. 2. Incidental fatty liver and probable right breast cyst. Breast sonogram may confirm. Comment: Preliminary interpretation made by [facility]. No critical discrepancy.
[2022-06-21] MEDS ORDERED: PATIENT OWN MEDICATION IH SCH ×3 (10:00→22:00)
--- NOTE | 2022-06-21 11:39 | PCM.HP ---
History of Present Illness - Chief Complaint Chief Complaint: Lactic acidosis History of Present Illness: is a 46 year old female pt of mine from [facility] with asthma, HTN, goiter, anx/depression, chronic foot pain/fractures, PVD, DMII who was admitted through ER with lactic acidosis. Her lactate was 8.3. She has been sick x 3 weeks, starting with a sinus infection. Saw her fishing hand, Dr. Rey Gar. Had 3 shots of steroids. For the past 10 d has been increasingly short of breath. Went to QC and ER in the past week. Her temp has been up to 99.9. Nonproductive cough. Sats to the 80s about 9d ago and she went to ER and was given doxycycline, which she took. Her metformin was stopped and she was given IV fluids. Lactate down to 2.7 this morning. Her SOB is better. - Review of Systems Ears, Nose, & Throat: Nose Congestion, Sinus Drainage Respiratory: Cough, Short Of Breath Cardiac: Chest Pain (took a nitro last week ), Edema (mild, extremities, since admission) Neurological: Dizziness, Parasthesia (R foot since admission) Medications & Allergies Home Medications: Home Medication List Albuterol Sulfate [Proventil] 2 puff IH DAILY PRN PRN 10/13/12 [History Confirmed 06/20/22] Montelukast Sodium 10 mg [Singulair 10 MG] 10 mg PO HS 10/13/12 [History Confirmed 06/20/22] Metoprolol Succinate [Toprol Xl] 100 mg PO BID 01/19/17 [History Confirmed 06/20/22] Furosemide 40 mg [Lasix 40 MG] 40 mg PO DAILY 04/05/17 [History Confirmed 06/20/22] Losartan Potassium 100 mg PO DAILY 04/05/17 [History Confirmed 06/20/22] Metformin HCl [Metformin ER Osmotic] 500 mg PO UD 04/05/17 [History Confirmed 06/20/22] Omeprazole 20 MG [Prilosec 20 mg] 20 mg PO DAILY 04/05/17 [History Confirmed 06/20/22] Diltiazem HCl Cd [Cardizem CD ] 120 mg PO DAILY 07/08/18 [History Confirmed 06/20/22] Paroxetine HCl 20 mg [Paxil 20 MG] 40 mg PO DAILY 07/08/18 [History Confirmed 06/20/22] Hydrocodone/APAP 10/325 mg [[place] 10/325 MG TableT] 1 tab PO TIDPRN PRN 01/08/20 [History Confirmed 06/20/22] Nitroglycerin 0.4 mg Tablet [Nitrostat 0.4 MG Tablet] 0.4 mg SL UD PRN 01/08/20 [History Confirmed 06/20/22] Dupilumab [Dupixent Syringe] 300 mg SQ DIRECTIONS UNKNOWN 01/07/21 [History Confirmed 06/20/22] Fexofenadine HCl [Sally] 30 mg PO DAILY 01/07/21 [History Confirmed 06/20/22] Meloxicam [Mobic] 7.5 mg PO BID 01/07/21 [History Confirmed 06/20/22] Metaxalone [Skelaxin] 800 mg PO DAILY PRN 01/07/21 [History Confirmed 06/20/22] Tamsulosin HCl [Flomax] 0.4 mg PO DAILY PRN 01/07/21 [History Confirmed 06/20/22] Tiotropium [place] [Spiriva Handihaler] 2 puff IH DAILY 01/07/21 [History Confirmed 06/20/22] ondansetron HCL [Zofran] 4 mg PO BID PRN 01/07/21 [History Confirmed 06/20/22] Cefdinir [Omnicef 300 mg] 300 mg PO BID 7 Days #14 cap 08/17/21 [Rx Confirmed 06/20/22] Isosorbide Mononitrate 30 mg [Imdur 30 MG] 1 tab PO DAILY 08/17/21 [History Confirmed 06/20/22] Aspirin EC 81 mg [Ecotrin 81 mg] 81 mg PO DAILY 06/20/22 [History Confirmed 06/20/22] Atorvastatin Calcium 40 mg PO HS 06/20/22 [History Confirmed 06/20/22] Cholecalciferol (Vitamin D3) [Vitamin D] 50,000 unit PO WEEKLY 06/20/22 [History Confirmed 06/20/22] Fluticasone/Umeclidin/Vilanter [Trelegy Ellipta 100-62.5-25] 1 puff IH DAILY 06/20/22 [History Confirmed 06/20/22] Prednisone 10 mg [Deltasone 10 mg] 20 mg PO DAILY 06/20/22 [History Confirmed 06/20/22] Allergies/Adverse Reactions: Allergies Allergy/AdvReac Type Severity Reaction Status Date / Time celecoxib [From Celebrex] Allergy Severe Swelling Verified 06/20/22 18:52 latex Allergy Severe Verified 06/20/22 18:52 penicillin G Allergy Intermediate Hives Verified 06/20/22 18:52 Penicillins Allergy Unknown Verified 06/20/22 18:52 liraglutide [From Victoza] Allergy Verified 06/20/22 18:52 lisinopril Allergy Verified 06/20/22 18:52 - Past Medical History Past Medical History: Yes Neurological History: No Pertinent History ENT History: No Pertinent History, Other Cardiac History: Hypertension, Other Respiratory History: Asthma, Sleep Apnea Endocrine Medical History: Diabetes Type II, Hyperthyroidism Musculoskelatal History: Other GI Medical History: GERD History: Other Pyscho-Social History: No Pertinent History Reproductive Disorders: Fibroids Comment: CATIE BUNIONECTOMY, STRESS FX LEFT FOOT, CHOLECYSTECTOMY, C-SECTIONS, HYSTERECTOMY, TONSILLECTOMY, appendectomy, Anemia - Female History Hx Last Menstrual Period: hysterectomy Are you now?: No - Past Surgical History Past Surgical History: Yes Neuro Surgical History: No Pertinent History Cardiac History: Cardiac Catheterization Respiratory Surgery: No Pertinent History GI Surgical History: Appendectomy, Cholecystectomy Genitourinary Surgical Hx: No Pertinent History Musculskeletal Surgical Hx: Orthopedic Surgery, Other Female Surgical History: Hysterectomy, Section Other Surgical History: tonsils, Bilateral feet-bunionectomy , screws to catie 2nd toes. CATIE BUNIONECTOMY, STRESS FX LEFT FOOT-ORIF, CHOLECYSTECTOMY, C-SECTIONS, HYSTERECTOMY, TONSILLECTOMY, appendectomy, ACL reconstruction - Social History Smoking Status: Never smoker Exposure to second hand smoke: No Alcohol: None Drug Use: none Significant Family History: diabetes, hypertension - Physical Exam Vital Signs: Vital Signs - 24 hr Temp Pulse Resp BP Pulse Ox 06/21/22 11:20 97.5 F 63 16 144/68 97 06/21/22 09:58 63 20 97 06/21/22 07:34 97.5 F 58 L 16 174/79 97 06/21/22 04:00 97.5 F 60 18 176/72 98 06/20/22 23:55 96.9 F 66 18 167/73 98 06/20/22 23:42 96.8 F 85 18 134/77 97 06/20/22 19:53 96.8 F 85 18 134/77 97 06/20/22 19:15 81 19 97 06/20/22 18:43 96.8 F 85 18 134/77 97 06/20/22 17:20 98 06/20/22 17:05 76 16 134/71 99 06/20/22 16:23 70 20 127/79 98 06/20/22 15:14 97.6 F 83 20 140/80 98 General Appearance: no apparent distress, alert Neurologic Exam: oriented x 3, cooperative, normal mood/affect Eye Exam: eyes nml inspection Ears, Nose, Throat Exam: moist mucous membranes Neck Exam: normal inspection Respiratory Exam: normal breath sounds, lungs clear, No crackles/rales, No rhonchi, No wheezing Cardiovascular Exam: regular rate/rhythm, normal heart sounds, No murmur Gastrointestinal/Abdomen Exam: soft, normal bowel sounds, No tenderness, No distention, No mass, No guarding, No rebound Back Exam: normal inspection, No CVA tenderness, No rash Extremity Exam: normal inspection, No pedal edema, No swelling Skin Exam: normal color, warm, dry, No rash Results - Labs Lab/Micro Results: Lab Results-Last 24 Hours 06/20/22 06/20/22 06/20/22 Range/Units 15:29 15:29 15:53 WBC 11.6 H (4.0-10.5) x10^3/uL RBC 4.40 (4.1-5.4) x10^6/uL Hgb 13.3 (12.0-16.0) g/dL Hct 39.9 (35-47) % MCV 90.7 (78-100) fL MCH 30.2 (26-32) pg MCHC 33.3 (32-36) g/dL RDW 13.0 (11.5-14.0) % Plt Count 332 (150-450) x10^3/uL MPV 9.4 (7.5-11.0) fL Gran % 78.3 H (36.0-66.0) % Immature Gran % (Auto) 3.5 H (0.00-0.4) % Nucleat RBC Rel Count 0.0 (0.00-0.1) % Eos # (Auto) 0.03 (0-0.5) x10^3/uL Immature Gran # (Auto) 0.41 H (0.00-0.03) x10^3u/L Absolute Lymphs (auto) 1.58 (1.0-4.6) x10^3/uL Absolute Monos (auto) 0.45 (0.0-1.3) x10^3/uL Absolute Nucleated RBC 0.00 (0.00-0.01) x10^3u/L Lymphocytes % 13.7 L (24.0-44.0) % Monocytes % 3.9 (0.0-12.0) % Eosinophils % 0.3 (0.00-5.0) % Basophils % 0.3 (0.0-0.4) % Absolute Granulocytes 9.04 H (1.4-6.9) x10^3/uL Basophils # 0.04 (0-0.4) x10^3/uL PT (9.4-12.5) SECONDS INR (0.8-3.0) APTT (25.1-36.5) SECONDS D-Dimer (0.0-0.50) mg/L Puncture Site pCO2 (35-45) mmHg pO2 (75-100) mmHg Base Excess (-2.0-2.0) O2 Saturation (94-100) g/dF ABG pH (7.35-7.45) ABG HCO3 (22-28) ABG O2 Sat (Measured) (95-100) % Phill Test A-a Gradient a/A Ratio Hemoglobin Carboxyhemoglobin (0.0-6.9) % THgb Methemoglobin (1.4-1.5) % Temperature C POC O2 Flow Rate % Sodium 136 L (137-145) mmol/L Potassium 3.1 L (3.5-5.1) mmol/L Chloride 98 (98-107) mmol/L Carbon Dioxide 23 (22-30) mmol/L Anion Gap 18.0 H (5-15) MEQ/L BUN 17 (7-17) mg/dL Creatinine 0.67 (0.52-1.04) mg/dL Estimated GFR > 60.0 ML/MIN Glucose 299 H (74-106) mg/dL POC Glucometer (74 to 106) mg/dL Lactic Acid 8.3 H (0.4-2.0) Calcium 9.1 (8.4-10.2) mg/dL Magnesium 1.5 L (1.6-2.3) mg/dL Total Bilirubin 0.60 (0.2-1.3) mg/dL AST 22 (14-36) U/L ALT 38 H (0-35) U/L Alkaline Phosphatase 101 (38-126) U/L Troponin I (0.000-0.034) ng/mL NT-Pro-B Natriuret Pep 124 (0-450) pg/mL Serum Total Protein 6.1 L (6.3-8.2) g/dL Albumin 4.0 (3.5-5.0) g/dL Urinalys Dipstick Clnc Urine Color (YELLOW) Urine Appearance (CLEAR) Urine pH (5-6) Ur Specific [place] (1.005-1.025) POC Urine Protein Conf (Negative) Urine Ketones (NEGATIVE) Urine Nitrite (NEGATIVE) Urine Bilirubin (NEGATIVE) Urine Urobilinogen (0-1) mg/dL Urine Leukocytes (NEGATIVE) Urine WBC (Auto) (0-5) /HPF Urine RBC (Auto) (0-2) /HPF U Epithel Cells (Auto) (FEW) /HPF Urine Bacteria (Auto) (NEGATIVE) /HPF Urine RBC (0-5) Curry/ul Ur Culture Indicated? Urine Glucose (NEGATIVE) mg/dL Influenza Type A Ag (NEGATIVE) Influenza Type B Ag (NEGATIVE) RSV (PCR) (Negative) SARS-CoV-2 (PCR) (NEGATIVE) 06/20/22 06/20/22 06/20/22 Range/Units 15:53 15:53 16:42 WBC (4.0-10.5) x10^3/uL RBC (4.1-5.4) x10^6/uL Hgb (12.0-16.0) g/dL Hct (35-47) % MCV (78-100) fL MCH (26-32) pg MCHC (32-36) g/dL RDW (11.5-14.0) % Plt Count (150-450) x10^3/uL MPV (7.5-11.0) fL Gran % (36.0-66.0) % Immature Gran % (Auto) (0.00-0.4) % Nucleat RBC Rel Count (0.00-0.1) % Eos # (Auto) (0-0.5) x10^3/uL Immature Gran # (Auto) (0.00-0.03) x10^3u/L Absolute Lymphs (auto) (1.0-4.6) x10^3/uL Absolute Monos (auto) (0.0-1.3) x10^3/uL Absolute Nucleated RBC (0.00-0.01) x10^3u/L Lymphocytes % (24.0-44.0) % Monocytes % (0.0-12.0) % Eosinophils % (0.00-5.0) % Basophils % (0.0-0.4) % Absolute Granulocytes (1.4-6.9) x10^3/uL Basophils # (0-0.4) x10^3/uL PT 10.9 (9.4-12.5) SECONDS INR 1.03 (0.8-3.0) APTT < 20.0 L (25.1-36.5) SECONDS D-Dimer 0.26 (0.0-0.50) mg/L Puncture Site pCO2 (35-45) mmHg pO2 (75-100) mmHg Base Excess (-2.0-2.0) O2 Saturation (94-100) g/dF ABG pH (7.35-7.45) ABG HCO3 (22-28) ABG O2 Sat (Measured) (95-100) % Phill Test A-a Gradient a/A Ratio Hemoglobin Carboxyhemoglobin (0.0-6.9) % THgb Methemoglobin (1.4-1.5) % Temperature C POC O2 Flow Rate % Sodium (137-145) mmol/L Potassium (3.5-5.1) mmol/L Chloride (98-107) mmol/L Carbon Dioxide (22-30) mmol/L Anion Gap (5-15) MEQ/L BUN (7-17) mg/dL Creatinine (0.52-1.04) mg/dL Estimated GFR ML/MIN Glucose (74-106) mg/dL POC Glucometer (74 to 106) mg/dL Lactic Acid (0.4-2.0) Calcium (8.4-10.2) mg/dL Magnesium (1.6-2.3) mg/dL Total Bilirubin (0.2-1.3) mg/dL AST (14-36) U/L ALT (0-35) U/L Alkaline Phosphatase (38-126) U/L Troponin I < 0.012 (0.000-0.034) ng/mL NT-Pro-B Natriuret Pep (0-450) pg/mL Serum Total Protein (6.3-8.2) g/dL Albumin (3.5-5.0) g/dL Urinalys Dipstick Clnc MAIN LAB Urine Color LT.YELLOW (YELLOW) Urine Appearance CLEAR (CLEAR) Urine pH 5.5 (5-6) Ur Specific [place] 1.020 (1.005-1.025) POC Urine Protein Conf NEGATIVE (Negative) Urine Ketones NEGATIVE (NEGATIVE) Urine Nitrite NEGATIVE (NEGATIVE) Urine Bilirubin NEGATIVE (NEGATIVE) Urine Urobilinogen 0.2 (0-1) mg/dL Urine Leukocytes NEGATIVE (NEGATIVE) Urine WBC (Auto) NONE SEEN (0-5) /HPF Urine RBC (Auto) NONE SEEN (0-2) /HPF U Epithel Cells (Auto) NONE (FEW) /HPF Urine Bacteria (Auto) NONE SEEN (NEGATIVE) /HPF Urine RBC NEGATIVE (0-5) Curry/ul Ur Culture Indicated? NO Urine Glucose 500 A (NEGATIVE) mg/dL Influenza Type A Ag (NEGATIVE) Influenza Type B Ag (NEGATIVE) RSV (PCR) (Negative) SARS-CoV-2 (PCR) (NEGATIVE) 06/20/22 06/20/22 06/20/22 Range/Units 16:54 17:05 19:42 WBC (4.0-10.5) x10^3/uL RBC (4.1-5.4) x10^6/uL Hgb (12.0-16.0) g/dL Hct (35-47) % MCV (78-100) fL MCH (26-32) pg MCHC (32-36) g/dL RDW (11.5-14.0) % Plt Count (150-450) x10^3/uL MPV (7.5-11.0) fL Gran % (36.0-66.0) % Immature Gran % (Auto) (0.00-0.4) % Nucleat RBC Rel Count (0.00-0.1) % Eos # (Auto) (0-0.5) x10^3/uL Immature Gran # (Auto) (0.00-0.03) x10^3u/L Absolute Lymphs (auto) (1.0-4.6) x10^3/uL Absolute Monos (auto) (0.0-1.3) x10^3/uL Absolute Nucleated RBC (0.00-0.01) x10^3u/L Lymphocytes % (24.0-44.0) % Monocytes % (0.0-12.0) % Eosinophils % (0.00-5.0) % Basophils % (0.0-0.4) % Absolute Granulocytes (1.4-6.9) x10^3/uL Basophils # (0-0.4) x10^3/uL PT (9.4-12.5) SECONDS INR (0.8-3.0) APTT (25.1-36.5) SECONDS D-Dimer (0.0-0.50) mg/L Puncture Site RIGHT RADIAL pCO2 32 L (35-45) mmHg pO2 100 (75-100) mmHg Base Excess -1.8 (-2.0-2.0) O2 Saturation 98.0 (94-100) g/dF ABG pH 7.44 (7.35-7.45) ABG HCO3 21.7 L (22-28) ABG O2 Sat (Measured) 99.4 (95-100) % Phill Test YES A-a Gradient 10 a/A Ratio 0.91 Hemoglobin 12.0 Carboxyhemoglobin 1.0 (0.0-6.9) % THgb Methemoglobin 0.5 L (1.4-1.5) % Temperature 37.0 C POC O2 Flow Rate 21 % Sodium (137-145) mmol/L Potassium 3.0 L (3.5-5.1) mmol/L Chloride (98-107) mmol/L Carbon Dioxide (22-30) mmol/L Anion Gap (5-15) MEQ/L BUN (7-17) mg/dL Creatinine (0.52-1.04) mg/dL Estimated GFR ML/MIN Glucose (74-106) mg/dL POC Glucometer (74 to 106) mg/dL Lactic Acid 8.7 H (0.4-2.0) Calcium (8.4-10.2) mg/dL Magnesium (1.6-2.3) mg/dL Total Bilirubin (0.2-1.3) mg/dL AST (14-36) U/L ALT (0-35) U/L Alkaline Phosphatase (38-126) U/L Troponin I (0.000-0.034) ng/mL NT-Pro-B Natriuret Pep (0-450) pg/mL Serum Total Protein (6.3-8.2) g/dL Albumin (3.5-5.0) g/dL Urinalys Dipstick Clnc Urine Color (YELLOW) Urine Appearance (CLEAR) Urine pH (5-6) Ur Specific [place] (1.005-1.025) POC Urine Protein Conf (Negative) Urine Ketones (NEGATIVE) Urine Nitrite (NEGATIVE) Urine Bilirubin (NEGATIVE) Urine Urobilinogen (0-1) mg/dL Urine Leukocytes (NEGATIVE) Urine WBC (Auto) (0-5) /HPF Urine RBC (Auto) (0-2) /HPF U Epithel Cells (Auto) (FEW) /HPF Urine Bacteria (Auto) (NEGATIVE) /HPF Urine RBC (0-5) Curry/ul Ur Culture Indicated? Urine Glucose (NEGATIVE) mg/dL Influenza Type A Ag NEGATIVE (NEGATIVE) Influenza Type B Ag NEGATIVE (NEGATIVE) RSV (PCR) NEGATIVE (Negative) SARS-CoV-2 (PCR) NEGATIVE (NEGATIVE) 06/20/22 06/20/22 06/20/22 Range/Units 19:45 21:56 21:56 WBC (4.0-10.5) x10^3/uL RBC (4.1-5.4) x10^6/uL Hgb (12.0-16.0) g/dL Hct (35-47) % MCV (78-100) fL MCH (26-32) pg MCHC (32-36) g/dL RDW (11.5-14.0) % Plt Count (150-450) x10^3/uL MPV (7.5-11.0) fL Gran % (36.0-66.0) % Immature Gran % (Auto) (0.00-0.4) % Nucleat RBC Rel Count (0.00-0.1) % Eos # (Auto) (0-0.5) x10^3/uL Immature Gran # (Auto) (0.00-0.03) x10^3u/L Absolute Lymphs (auto) (1.0-4.6) x10^3/uL Absolute Monos (auto) (0.0-1.3) x10^3/uL Absolute Nucleated RBC (0.00-0.01) x10^3u/L Lymphocytes % (24.0-44.0) % Monocytes % (0.0-12.0) % Eosinophils % (0.00-5.0) % Basophils % (0.0-0.4) % Absolute Granulocytes (1.4-6.9) x10^3/uL Basophils # (0-0.4) x10^3/uL PT (9.4-12.5) SECONDS INR (0.8-3.0) APTT (25.1-36.5) SECONDS D-Dimer (0.0-0.50) mg/L Puncture Site pCO2 (35-45) mmHg pO2 (75-100) mmHg Base Excess (-2.0-2.0) O2 Saturation (94-100) g/dF ABG pH (7.35-7.45) ABG HCO3 (22-28) ABG O2 Sat (Measured) (95-100) % Phill Test A-a Gradient a/A Ratio Hemoglobin Carboxyhemoglobin (0.0-6.9) % THgb Methemoglobin (1.4-1.5) % Temperature C POC O2 Flow Rate % Sodium (137-145) mmol/L Potassium 3.7 (3.5-5.1) mmol/L Chloride (98-107) mmol/L Carbon Dioxide (22-30) mmol/L Anion Gap (5-15) MEQ/L BUN (7-17) mg/dL Creatinine (0.52-1.04) mg/dL Estimated GFR ML/MIN Glucose (74-106) mg/dL POC Glucometer (74 to 106) mg/dL Lactic Acid (0.4-2.0) Calcium (8.4-10.2) mg/dL Magnesium (1.6-2.3) mg/dL Total Bilirubin (0.2-1.3) mg/dL AST (14-36) U/L ALT (0-35) U/L Alkaline Phosphatase (38-126) U/L Troponin I < 0.012 < 0.012 (0.000-0.034) ng/mL NT-Pro-B Natriuret Pep (0-450) pg/mL Serum Total Protein (6.3-8.2) g/dL Albumin (3.5-5.0) g/dL Urinalys Dipstick Clnc Urine Color (YELLOW) Urine Appearance (CLEAR) Urine pH (5-6) Ur Specific [place] (1.005-1.025) POC Urine Protein Conf (Negative) Urine Ketones (NEGATIVE) Urine Nitrite (NEGATIVE) Urine Bilirubin (NEGATIVE) Urine Urobilinogen (0-1) mg/dL Urine Leukocytes (NEGATIVE) Urine WBC (Auto) (0-5) /HPF Urine RBC (Auto) (0-2) /HPF U Epithel Cells (Auto) (FEW) /HPF Urine Bacteria (Auto) (NEGATIVE) /HPF Urine RBC (0-5) Curry/ul Ur Culture Indicated? Urine Glucose (NEGATIVE) mg/dL Influenza Type A Ag (NEGATIVE) Influenza Type B Ag (NEGATIVE) RSV (PCR) (Negative) SARS-CoV-2 (PCR) (NEGATIVE) 06/20/22 06/20/22 06/21/22 Range/Units 22:00 22:08 04:30 WBC 7.1 (4.0-10.5) x10^3/uL RBC 3.76 L (4.1-5.4) x10^6/uL Hgb 11.4 L (12.0-16.0) g/dL Hct 32.8 L (35-47) % MCV 87.2 (78-100) fL MCH 30.3 (26-32) pg MCHC 34.8 (32-36) g/dL RDW 13.1 (11.5-14.0) % Plt Count 236 (150-450) x10^3/uL MPV 9.0 (7.5-11.0) fL Gran % 67.4 H (36.0-66.0) % Immature Gran % (Auto) 3.8 H (0.00-0.4) % Nucleat RBC Rel Count 0.0 (0.00-0.1) % Eos # (Auto) 0.03 (0-0.5) x10^3/uL Immature Gran # (Auto) 0.27 H (0.00-0.03) x10^3u/L Absolute Lymphs (auto) 1.72 (1.0-4.6) x10^3/uL Absolute Monos (auto) 0.27 (0.0-1.3) x10^3/uL Absolute Nucleated RBC 0.00 (0.00-0.01) x10^3u/L Lymphocytes % 24.2 (24.0-44.0) % Monocytes % 3.8 (0.0-12.0) % Eosinophils % 0.4 (0.00-5.0) % Basophils % 0.4 (0.0-0.4) % Absolute Granulocytes 4.78 (1.4-6.9) x10^3/uL Basophils # 0.03 (0-0.4) x10^3/uL PT (9.4-12.5) SECONDS INR (0.8-3.0) APTT (25.1-36.5) SECONDS D-Dimer (0.0-0.50) mg/L Puncture Site pCO2 (35-45) mmHg pO2 (75-100) mmHg Base Excess (-2.0-2.0) O2 Saturation (94-100) g/dF ABG pH (7.35-7.45) ABG HCO3 (22-28) ABG O2 Sat (Measured) (95-100) % Phill Test A-a Gradient a/A Ratio Hemoglobin Carboxyhemoglobin (0.0-6.9) % THgb Methemoglobin (1.4-1.5) % Temperature C POC O2 Flow Rate % Sodium (137-145) mmol/L Potassium (3.5-5.1) mmol/L Chloride (98-107) mmol/L Carbon Dioxide (22-30) mmol/L Anion Gap (5-15) MEQ/L BUN (7-17) mg/dL Creatinine (0.52-1.04) mg/dL Estimated GFR ML/MIN Glucose (74-106) mg/dL POC Glucometer 243 H (74 to 106) mg/dL Lactic Acid 7.6 H (0.4-2.0) Calcium (8.4-10.2) mg/dL Magnesium (1.6-2.3) mg/dL Total Bilirubin (0.2-1.3) mg/dL AST (14-36) U/L ALT (0-35) U/L Alkaline Phosphatase (38-126) U/L Troponin I (0.000-0.034) ng/mL NT-Pro-B Natriuret Pep (0-450) pg/mL Serum Total Protein (6.3-8.2) g/dL Albumin (3.5-5.0) g/dL Urinalys Dipstick Clnc Urine Color (YELLOW) Urine Appearance (CLEAR) Urine pH (5-6) Ur Specific [place] (1.005-1.025) POC Urine Protein Conf (Negative) Urine Ketones (NEGATIVE) Urine Nitrite (NEGATIVE) Urine Bilirubin (NEGATIVE) Urine Urobilinogen (0-1) mg/dL Urine Leukocytes (NEGATIVE) Urine WBC (Auto) (0-5) /HPF Urine RBC (Auto) (0-2) /HPF U Epithel Cells (Auto) (FEW) /HPF Urine Bacteria (Auto) (NEGATIVE) /HPF Urine RBC (0-5) Curry/ul Ur Culture Indicated? Urine Glucose (NEGATIVE) mg/dL Influenza Type A Ag (NEGATIVE) Influenza Type B Ag (NEGATIVE) RSV (PCR) (Negative) SARS-CoV-2 (PCR) (NEGATIVE) 06/21/22 06/21/22 06/21/22 Range/Units 04:30 05:02 06:56 WBC (4.0-10.5) x10^3/uL RBC (4.1-5.4) x10^6/uL Hgb (12.0-16.0) g/dL Hct (35-47) % MCV (78-100) fL MCH (26-32) pg MCHC (32-36) g/dL RDW (11.5-14.0) % Plt Count (150-450) x10^3/uL MPV (7.5-11.0) fL Gran % (36.0-66.0) % Immature Gran % (Auto) (0.00-0.4) % Nucleat RBC Rel Count (0.00-0.1) % Eos # (Auto) (0-0.5) x10^3/uL Immature Gran # (Auto) (0.00-0.03) x10^3u/L Absolute Lymphs (auto) (1.0-4.6) x10^3/uL Absolute Monos (auto) (0.0-1.3) x10^3/uL Absolute Nucleated RBC (0.00-0.01) x10^3u/L Lymphocytes % (24.0-44.0) % Monocytes % (0.0-12.0) % Eosinophils % (0.00-5.0) % Basophils % (0.0-0.4) % Absolute Granulocytes (1.4-6.9) x10^3/uL Basophils # (0-0.4) x10^3/uL PT (9.4-12.5) SECONDS INR (0.8-3.0) APTT (25.1-36.5) SECONDS D-Dimer (0.0-0.50) mg/L Puncture Site LEFT BRACHIAL pCO2 36 (35-45) mmHg pO2 132 H* (75-100) mmHg Base Excess 4.8 H (-2.0-2.0) O2 Saturation 95.5 (94-100) g/dF ABG pH 7.50 H (7.35-7.45) ABG HCO3 28.1 H (22-28) ABG O2 Sat (Measured) 99.2 (95-100) % Phill Test NOT APPLICABLE A-a Gradient -27 a/A Ratio 1.26 Hemoglobin 11.9 Carboxyhemoglobin 3.0 (0.0-6.9) % THgb Methemoglobin 0.7 L (1.4-1.5) % Temperature 37.0 C POC O2 Flow Rate 21 % Sodium 137 (137-145) mmol/L Potassium 3.5 3.5 (3.5-5.1) mmol/L Chloride 104 (98-107) mmol/L Carbon Dioxide 28 (22-30) mmol/L Anion Gap 8.0 (5-15) MEQ/L BUN 9 (7-17) mg/dL Creatinine 0.48 L (0.52-1.04) mg/dL Estimated GFR > 60.0 ML/MIN Glucose 119 H (74-106) mg/dL POC Glucometer 111 H (74 to 106) mg/dL Lactic Acid 2.7 H (0.4-2.0) Calcium 7.3 L D (8.4-10.2) mg/dL Magnesium 1.5 L (1.6-2.3) mg/dL Total Bilirubin 0.50 (0.2-1.3) mg/dL AST 14 (14-36) U/L ALT 23 (0-35) U/L Alkaline Phosphatase 71 (38-126) U/L Troponin I (0.000-0.034) ng/mL NT-Pro-B Natriuret Pep (0-450) pg/mL Serum Total Protein 5.3 L (6.3-8.2) g/dL Albumin 3.2 L (3.5-5.0) g/dL Urinalys Dipstick Clnc Urine Color (YELLOW) Urine Appearance (CLEAR) Urine pH (5-6) Ur Specific [place] (1.005-1.025) POC Urine Protein Conf (Negative) Urine Ketones (NEGATIVE) Urine Nitrite (NEGATIVE) Urine Bilirubin (NEGATIVE) Urine Urobilinogen (0-1) mg/dL Urine Leukocytes (NEGATIVE) Urine WBC (Auto) (0-5) /HPF Urine RBC (Auto) (0-2) /HPF U Epithel Cells (Auto) (FEW) /HPF Urine Bacteria (Auto) (NEGATIVE) /HPF Urine RBC (0-5) Curry/ul Ur Culture Indicated? Urine Glucose (NEGATIVE) mg/dL Influenza Type A Ag (NEGATIVE) Influenza Type B Ag (NEGATIVE) RSV (PCR) (Negative) SARS-CoV-2 (PCR) (NEGATIVE) 06/21/22 Range/Units 10:58 WBC (4.0-10.5) x10^3/uL RBC (4.1-5.4) x10^6/uL Hgb (12.0-16.0) g/dL Hct (35-47) % MCV (78-100) fL MCH (26-32) pg MCHC (32-36) g/dL RDW (11.5-14.0) % Plt Count (150-450) x10^3/uL MPV (7.5-11.0) fL Gran % (36.0-66.0) % Immature Gran % (Auto) (0.00-0.4) % Nucleat RBC Rel Count (0.00-0.1) % Eos # (Auto) (0-0.5) x10^3/uL Immature Gran # (Auto) (0.00-0.03) x10^3u/L Absolute Lymphs (auto) (1.0-4.6) x10^3/uL Absolute Monos (auto) (0.0-1.3) x10^3/uL Absolute Nucleated RBC (0.00-0.01) x10^3u/L Lymphocytes % (24.0-44.0) % Monocytes % (0.0-12.0) % Eosinophils % (0.00-5.0) % Basophils % (0.0-0.4) % Absolute Granulocytes (1.4-6.9) x10^3/uL Basophils # (0-0.4) x10^3/uL PT (9.4-12.5) SECONDS INR (0.8-3.0) APTT (25.1-36.5) SECONDS D-Dimer (0.0-0.50) mg/L Puncture Site pCO2 (35-45) mmHg pO2 (75-100) mmHg Base Excess (-2.0-2.0) O2 Saturation (94-100) g/dF ABG pH (7.35-7.45) ABG HCO3 (22-28) ABG O2 Sat (Measured) (95-100) % Phill Test A-a Gradient a/A Ratio Hemoglobin Carboxyhemoglobin (0.0-6.9) % THgb Methemoglobin (1.4-1.5) % Temperature C POC O2 Flow Rate % Sodium (137-145) mmol/L Potassium (3.5-5.1) mmol/L Chloride (98-107) mmol/L Carbon Dioxide (22-30) mmol/L Anion Gap (5-15) MEQ/L BUN (7-17) mg/dL Creatinine (0.52-1.04) mg/dL Estimated GFR ML/MIN Glucose (74-106) mg/dL POC Glucometer 139 H (74 to 106) mg/dL Lactic Acid (0.4-2.0) Calcium (8.4-10.2) mg/dL Magnesium (1.6-2.3) mg/dL Total Bilirubin (0.2-1.3) mg/dL AST (14-36) U/L ALT (0-35) U/L Alkaline Phosphatase (38-126) U/L Troponin I (0.000-0.034) ng/mL NT-Pro-B Natriuret Pep (0-450) pg/mL Serum Total Protein (6.3-8.2) g/dL Albumin (3.5-5.0) g/dL Urinalys Dipstick Clnc Urine Color (YELLOW) Urine Appearance (CLEAR) Urine pH (5-6) Ur Specific [place] (1.005-1.025) POC Urine Protein Conf (Negative) Urine Ketones (NEGATIVE) Urine Nitrite (NEGATIVE) Urine Bilirubin (NEGATIVE) Urine Urobilinogen (0-1) mg/dL Urine Leukocytes (NEGATIVE) Urine WBC (Auto) (0-5) /HPF Urine RBC (Auto) (0-2) /HPF U Epithel Cells (Auto) (FEW) /HPF Urine Bacteria (Auto) (NEGATIVE) /HPF Urine RBC (0-5) Curry/ul Ur Culture Indicated? Urine Glucose (NEGATIVE) mg/dL Influenza Type A Ag (NEGATIVE) Influenza Type B Ag (NEGATIVE) RSV (PCR) (Negative) SARS-CoV-2 (PCR) (NEGATIVE) Accuchecks Date 06/21/22 Date 06/20/22 Time 11:20 Time 22:00 - Radiology Impressions Radiology Exams & Impressions: Radiology Procedures Category Date Time Status CHEST 2 VIEWS (PA AND LAT) Stat Exams 06/20/22 22:17 Completed CHEST WITHOUT CONTRAST [CT] Routine Exams 06/20/22 22:57 Completed - Other Procedures and Tests Respiratory Therapy 06/20/22 19:37 Respiratory Therapy Assessment DAILY 06/21/22 07:00 Respiratory MDI DAILY Respiratory MDI [facility] Assessment/Plan (1) Lactic acidosis Current Visit: Yes Status: Acute Assessment & Plan: nearly resolved. Will check to resolution. May be able to d/c home tonight, but may be in the morning. Likely due to metformin; pt to stop metformin. Code(s): E87.20 - (2) Asthma exacerbation Current Visit: Yes Status: Acute Qualifiers: Asthma severity: severe Asthma persistence: persistent Qualified Code(s): J45.51 - Severe persistent asthma with (acute) exacerbation Code(s): J45.901 - UNSPECIFIED ASTHMA WITH (ACUTE) EXACERBATION (3) Hypocalcemia Current Visit: Yes Status: Acute Assessment & Plan: TUMS until her level is repleted, probably due to IV hydration. Code(s): E83.51 - HYPOCALCEMIA
[2022-06-21] MEDS ORDERED: NON-FORMULARY ITEM (Ondansetron Hcl [Zofran***] 4 MG Tablet) PO PRN (11:40)
[2022-06-21] MEDS ORDERED: HYDROCODONE-ACETAMIN 10-325 MG PO PRN (11:40)
[2022-06-21] MEDS ORDERED: Flomax 0.4 MG PO PRN (11:40)
[2022-06-21] MEDS ORDERED: METAXALONE 800 MG PO PRN (11:40)
[2022-06-21] MEDS ORDERED: Nitrostat 0.4 MG Tablet SL PRN (11:40)
[2022-06-21] MEDS ORDERED: PROVENTIL 2.5 MG/3 ML NEB IH PRN (11:40)
[2022-06-21] MEDS ORDERED: ZOFRAN ODT 4 MG PO PRN ×2 (11:55→12:00)
[2022-06-21] MEDS ORDERED: MEDICATION INTERVENTION MC SCH (12:30)
[2022-06-21] MEDS: Toprol Xl 100 MG PO SCH ×2 (12:39→21:01)
[2022-06-21] MEDS ORDERED: Protonix 20MG Tablet PO SCH (13:00)
[2022-06-21] MEDS ORDERED: DELTASONE 10 MG PO SCH (13:00)
[2022-06-21] MEDS ORDERED: Cozaar 50 MG PO SCH (13:00)
[2022-06-21] MEDS ORDERED: Paxil 20 MG PO SCH (13:00)
[2022-06-21] MEDS ORDERED: ECOTRIN 81 MG PO SCH (13:00)
[2022-06-21] MEDS ORDERED: Imdur 30 MG PO SCH (13:00)
[2022-06-21] MEDS ORDERED: Cardizem CD PO SCH (13:00)
[2022-06-21] MEDS ORDERED: Cozaar 50 MG PO ONE (21:13)
[2022-06-21] MEDS ORDERED: ZOCOR 20MG PO SCH (22:00)
[2022-06-21] MEDS ORDERED: LIPITOR 40MG PO SCH (22:00)
[2022-06-21] MEDS ORDERED: ROCEPHIN 1 Gm-D5w 50 ml Bag** 1 G/50 ML IVPB IV SCH (22:00)
[2022-06-21] MEDS ORDERED: Toprol Xl 50 MG PO SCH (22:00)
[2022-06-21] MEDS ORDERED: Singulair 10 MG PO SCH (22:00)
[2022-06-21] MEDS ORDERED: Zithromax 500 MG/ 250 ML NaCl Premix 500 MG/250 ML IVPB IV SCH (22:00)
[2022-06-22 06:35] LABS: Absolute Neutrophil Ct (ANC) 4.16 x10^3/uL (1.4-6.9); Basophil (Absolute #) 0.03 x10^3/uL (0-0.4); Eosinophil % 0.5 % (0.00-5.0); Eosinophil (Absolute #) 0.03 x10^3/uL (0-0.5); Hemoglobin 12.1 g/dL (12.0-16.0); Lymphocyte (Absolute #) 1.44 x10^3/uL (1.0-4.6); Lymphocytes % 23.2 % (24.0-44.0); Mean Corpuscular Hemoglobin 30.1 pg (26-32); Mean Corpuscular Hgb Concent. 32.7 g/dL (32-36); Mean Platelet Volume 9.2 fL (7.5-11.0); Monocyte (Absolute #) 0.26 x10^3/uL (0.0-1.3); Monocytes % 4.2 % (0.0-12.0); Neutrophil % 66.9 % (36.0-66.0); Platelet Count 229 x10^3/uL (150-450); Red Blood Count 4.02 x10^6/uL (4.1-5.4); Red Cell Distribution Width 13.1 % (11.5-14.0); White Blood Count 6.2 x10^3/uL (4.0-10.5)
[2022-06-22 07:09] VITALS: O2SAT 98
[2022-06-22 07:17] LABS: BLOOD UREA NITROGEN 8 mg/dL (7-17); CHLORIDE 107 mmol/L (98-107); Calcium 8.2 mg/dL (8.4-10.2); Carbon Dioxide 32 mmol/L (22-30); Creatinine 1 0.48 mg/dL (0.52-1.04); EST GLOMERULAR FILTRATION RATE > 60.0 ML/MIN; Glucose 132 mg/dL (74-106); Potassium 4.3 mmol/L (3.5-5.1); SODIUM 142 mmol/L (137-145)
[2022-06-22] MEDS: Sodium Chloride 0.9% W/ 20 mEq KCl/LITER 1,000 ML IV SCH (07:30)
[2022-06-22 07:35] VITALS: BP 141/69; PULSE 75
--- NOTE | 2022-06-22 08:45 | PCM.DS ---
Discharge Summary Date of Admission: 06/20/22 18:05 Admitting Physician: MERRILL INGRAM Primary Care Provider: MERRILL INGRAM Allergies Allergies celecoxib [From Celebrex] Allergy (Severe, Verified 06/20/22 18:52) Swelling latex Allergy (Severe, Verified 06/20/22 18:52) penicillin G Allergy (Intermediate, Verified 06/20/22 18:52) Hives Penicillins Allergy (Unknown, Verified 06/20/22 18:52) liraglutide [From Victoza] Allergy (Verified 06/20/22 18:52) lisinopril Allergy (Verified 06/20/22 18:52) Hospital Summary - Hospital Course Hospital Course: is a 46 year old female pt of mine from [facility] with asthma, HTN, goiter, anx/depression, chronic foot pain/fractures, PVD, DMII who was admitted through ER with lactic acidosis. Her lactate was 8.3. She had been sick x 3 weeks, starting with a sinus infection. Saw her handicapped teacher, Dr. Rey Gar. Had 3 shots of steroids. For the past 10 d had been increasingly short of breath. Went to QC and ER in the past week. Her temp had been up to 99.9. Nonproductive cough. Sats to the 80s about 9d ago and she went to ER and was given doxycycline, which she took. Pt was given fluid in the ER and her lactate decreased to 2.7 by yesterday morning; this morning is 2.1. It was felt that the most likely cause of her metabolic acidosis was metformin toxicity, so that has been stopped. She was also started on IV rocephin and zithromax. She will continue a course of those at home. - Vitals & Intake/Output Vital Signs: Vital Signs Temperature 97.5 F 06/22/22 07:35 Pulse Rate 75 06/22/22 07:35 Respiratory Rate 16 06/22/22 07:35 Blood Pressure 141/69 06/22/22 07:35 O2 Sat by Pulse Oximetry 98 06/22/22 07:35 Intake & Output: Intake & Output 06/19/22 06/20/22 06/21/22 06/22/22 11:59 11:59 11:59 11:59 Intake Total 3301 4193 Output Total 3300 3300 Balance 1 893 Weight 78.6 kg 78 kg - Lab Result Diagrams: 06/22/22 06:32 06/22/22 06:32 Lab Results-Last 24 Hrs: Lab Results-Last 24 Hours 06/21/22 06/21/22 06/21/22 Range/Units 10:58 16:13 20:44 WBC (4.0-10.5) x10^3/uL RBC (4.1-5.4) x10^6/uL Hgb (12.0-16.0) g/dL Hct (35-47) % MCV (78-100) fL MCH (26-32) pg MCHC (32-36) g/dL RDW (11.5-14.0) % Plt Count (150-450) x10^3/uL MPV (7.5-11.0) fL Gran % (36.0-66.0) % Immature Gran % (Auto) (0.00-0.4) % Nucleat RBC Rel Count (0.00-0.1) % Eos # (Auto) (0-0.5) x10^3/uL Immature Gran # (Auto) (0.00-0.03) x10^3u/L Absolute Lymphs (auto) (1.0-4.6) x10^3/uL Absolute Monos (auto) (0.0-1.3) x10^3/uL Absolute Nucleated RBC (0.00-0.01) x10^3u/L Lymphocytes % (24.0-44.0) % Monocytes % (0.0-12.0) % Eosinophils % (0.00-5.0) % Basophils % (0.0-0.4) % Absolute Granulocytes (1.4-6.9) x10^3/uL Basophils # (0-0.4) x10^3/uL Sodium (137-145) mmol/L Potassium (3.5-5.1) mmol/L Chloride (98-107) mmol/L Carbon Dioxide (22-30) mmol/L Anion Gap (5-15) MEQ/L BUN (7-17) mg/dL Creatinine (0.52-1.04) mg/dL Estimated GFR ML/MIN Glucose (74-106) mg/dL POC Glucometer 139 H 242 H 267 H (74 to 106) mg/dL Lactic Acid (0.4-2.0) Calcium (8.4-10.2) mg/dL 06/22/22 06/22/22 06/22/22 Range/Units 06:32 06:32 06:32 WBC 6.2 (4.0-10.5) x10^3/uL RBC 4.02 L (4.1-5.4) x10^6/uL Hgb 12.1 (12.0-16.0) g/dL Hct 37.0 (35-47) % MCV 92.0 (78-100) fL MCH 30.1 (26-32) pg MCHC 32.7 (32-36) g/dL RDW 13.1 (11.5-14.0) % Plt Count 229 (150-450) x10^3/uL MPV 9.2 (7.5-11.0) fL Gran % 66.9 H (36.0-66.0) % Immature Gran % (Auto) 4.7 H (0.00-0.4) % Nucleat RBC Rel Count 0.0 (0.00-0.1) % Eos # (Auto) 0.03 (0-0.5) x10^3/uL Immature Gran # (Auto) 0.29 H (0.00-0.03) x10^3u/L Absolute Lymphs (auto) 1.44 (1.0-4.6) x10^3/uL Absolute Monos (auto) 0.26 (0.0-1.3) x10^3/uL Absolute Nucleated RBC 0.00 (0.00-0.01) x10^3u/L Lymphocytes % 23.2 L (24.0-44.0) % Monocytes % 4.2 (0.0-12.0) % Eosinophils % 0.5 (0.00-5.0) % Basophils % 0.5 (0.0-0.4) % Absolute Granulocytes 4.16 (1.4-6.9) x10^3/uL Basophils # 0.03 (0-0.4) x10^3/uL Sodium 142 (137-145) mmol/L Potassium 4.3 D (3.5-5.1) mmol/L Chloride 107 (98-107) mmol/L Carbon Dioxide 32 H (22-30) mmol/L Anion Gap 7.0 (5-15) MEQ/L BUN 8 (7-17) mg/dL Creatinine 0.48 L (0.52-1.04) mg/dL Estimated GFR > 60.0 ML/MIN Glucose 132 H (74-106) mg/dL POC Glucometer (74 to 106) mg/dL Lactic Acid 2.1 H (0.4-2.0) Calcium 8.2 L (8.4-10.2) mg/dL 06/22/22 Range/Units 07:04 WBC (4.0-10.5) x10^3/uL RBC (4.1-5.4) x10^6/uL Hgb (12.0-16.0) g/dL Hct (35-47) % MCV (78-100) fL MCH (26-32) pg MCHC (32-36) g/dL RDW (11.5-14.0) % Plt Count (150-450) x10^3/uL MPV (7.5-11.0) fL Gran % (36.0-66.0) % Immature Gran % (Auto) (0.00-0.4) % Nucleat RBC Rel Count (0.00-0.1) % Eos # (Auto) (0-0.5) x10^3/uL Immature Gran # (Auto) (0.00-0.03) x10^3u/L Absolute Lymphs (auto) (1.0-4.6) x10^3/uL Absolute Monos (auto) (0.0-1.3) x10^3/uL Absolute Nucleated RBC (0.00-0.01) x10^3u/L Lymphocytes % (24.0-44.0) % Monocytes % (0.0-12.0) % Eosinophils % (0.00-5.0) % Basophils % (0.0-0.4) % Absolute Granulocytes (1.4-6.9) x10^3/uL Basophils # (0-0.4) x10^3/uL Sodium (137-145) mmol/L Potassium (3.5-5.1) mmol/L Chloride (98-107) mmol/L Carbon Dioxide (22-30) mmol/L Anion Gap (5-15) MEQ/L BUN (7-17) mg/dL Creatinine (0.52-1.04) mg/dL Estimated GFR ML/MIN Glucose (74-106) mg/dL POC Glucometer 113 H (74 to 106) mg/dL Lactic Acid (0.4-2.0) Calcium (8.4-10.2) mg/dL Micro Results-Entire Visit: Microbiology 06/20/22 16:35 Blood Culture - Preliminary Blood NO GROWTH TO DATE 06/20/22 15:25 Blood Culture - Preliminary Blood NO GROWTH TO DATE Accuchecks Date 06/21/22 Date 06/21/22 Date 06/21/22 Time 21:30 Time 16:22 Time 11:20 - Radiology Exams Ordered Rad Exams-Entire Visit: Radiology Procedures Category Date Time Status CHEST 2 VIEWS (PA AND LAT) Stat Exams 06/20/22 22:17 Completed CHEST WITHOUT CONTRAST [CT] Routine Exams 06/20/22 22:57 Completed - Procedures and Test Procedures and Tests throughout Hospitalization: Therapy Orders & Screens 06/20/22 19:04 RT Screen per Nursing Assess ONCE Comment: Protocol Order Physician Instructions: Greater than 3 points order RT Admission Screen Reason For Exam: Triggered on Admission Diagnosis: Lactic acidosis Diagnosis: Lactic acidosis Pneumonia: No Home O2: No Asthma: Yes CHF: No Home CPAP/BIPAP: Yes: usually don't use Home Nebs/MDI: Yes Total Points: 14 06/20/22 19:37 Respiratory Therapy Assessment DAILY Comment: Diagnosis: Lactic acidosis 06/21/22 07:00 Respiratory MDI DAILY Comment: SPIRIVA 1 CAPSULE DAILY Diagnosis: Lactic acidosis Respiratory MDI QHS Comment: TRELEGY Diagnosis: Lactic acidosis Discharge Exam General Appearance: no apparent distress, alert Neurologic Exam: oriented x 3, cooperative Eye Exam: eyes nml inspection Ears, Nose, Throat Exam: moist mucous membranes Neck Exam: normal inspection Respiratory Exam: normal breath sounds, lungs clear, No crackles/rales, No rhonchi, No wheezing Cardiovascular Exam: regular rate/rhythm, normal heart sounds, No murmur Back Exam: normal inspection, No rash Extremity Exam: normal inspection, No pedal edema, No swelling Skin Exam: normal color, warm, dry, No rash Final Diagnosis/Problem List - Final Discharge Diagnosis/Problem (1) Lactic acidosis Current Visit: Yes Status: Resolved Code(s): E87.20 - (2) Asthma exacerbation Current Visit: Yes Status: Acute Assessment & Plan: on rocephin and zithromax, and will continue course of abx at home. Code(s): J45.901 - UNSPECIFIED ASTHMA WITH (ACUTE) EXACERBATION (3) Hypocalcemia Current Visit: Yes Status: Acute Assessment & Plan: improved. OK to continue TUMS at home BID for the next few days. Code(s): E83.51 - HYPOCALCEMIA - Discharge Disposition: Home, Self-Care Condition: Good Prescriptions: New Calcium Carbonate 750 mg [Tums EX 750 MG] 750 mg PO TID tablet Continue Albuterol Sulfate [Proventil] 2 puff IH DAILY PRN PRN PRN Reason: Shortness Of Breath/Wheezing Montelukast Sodium 10 mg [Singulair 10 MG] 10 mg PO HS Metoprolol Succinate [Toprol Xl] 100 mg PO BID Omeprazole 20 MG [Prilosec 20 mg] 20 mg PO DAILY Losartan Potassium 100 mg PO DAILY Furosemide 40 mg [Lasix 40 MG] 40 mg PO DAILY Paroxetine HCl 20 mg [Paxil 20 MG] 40 mg PO DAILY Diltiazem HCl Cd [Cardizem CD ] 120 mg PO DAILY Hydrocodone/APAP 10/325 mg [[place] 10/325 MG TableT] 1 tab PO TIDPRN PRN PRN Reason: Moderate To Severe Pain Nitroglycerin 0.4 mg Tablet [Nitrostat 0.4 MG Tablet] 0.4 mg SL UD PRN PRN Reason: Chest Pain Metaxalone [Skelaxin] 800 mg PO DAILY PRN PRN Reason: Pain ondansetron HCL [Zofran] 4 mg PO BID PRN PRN Reason: Nausea Fexofenadine HCl [Sally] 30 mg PO DAILY Tiotropium [place] [Spiriva Handihaler] 2 puff IH DAILY Dupilumab [Dupixent Syringe] 300 mg SQ DIRECTIONS UNKNOWN Tamsulosin HCl [Flomax] 0.4 mg PO DAILY PRN PRN Reason: Pain Meloxicam [Mobic] 7.5 mg PO BID Isosorbide Mononitrate 30 mg [Imdur 30 MG] 1 tab PO DAILY Cefdinir [Omnicef 300 mg] 300 mg PO BID 7 Days #14 cap Cholecalciferol (Vitamin D3) [Vitamin D3] 50,000 unit PO WEEKLY Aspirin EC 81 mg [Ecotrin 81 mg] 81 mg PO DAILY Atorvastatin Calcium 40 mg PO HS Prednisone 10 mg [Deltasone 10 mg] 20 mg PO DAILY Fluticasone/Umeclidin/Vilanter [Trelegy Ellipta 100-62.5-25] 1 puff IH DAILY Discontinued Metformin HCl [Metformin ER Osmotic] 500 mg PO UD Instructions: Metabolic Acidosis, Shortness of Breath (Dyspnea) (DC) Additional Instructions: CHECK YOUR BLOOD SUGARS TWICE DAY FOR 1 WEEK THEN CHECK DAILY- [facility] HAS ORDER Follow up with: MERRILL INGRAM [Primary Care Provider] -
[2022-06-22] MEDS ORDERED: NON-FORMULARY ITEM (Losartan Potassium [Losartan Potassium] 100 MG Tablet) PO SCH (10:00)
[2022-06-22] MEDS ORDERED: CLARITIN 10 MG PO SCH (10:00)
[2022-06-22] MEDS ORDERED: NON-FORMULARY ITEM (Omeprazole 20 Mg [Prilosec 20 Mg] 20 MG Capsule.Dr) PO SCH (10:00)
[2022-06-22] MEDS ORDERED: FEXOFENADINE HCL 30 MG PO SCH (10:00)
[2022-06-22] MEDS ORDERED: PATIENT OWN MEDICATION IH SCH (10:00)
== END 2022-06-22 10:10 | disposition home or self-care (01) ==
LOC: ED 15:11 → MED SURG 18:05
PROVIDERS: ADMIT Family Medicine; ATTEND Family Medicine
DX: E11.10 Type 2 diabetes mellitus with ketoacidosis without coma (principal); J45.901 Unspecified asthma with (acute) exacerbation; E83.51 Hypocalcemia; I10 Essential (primary) hypertension; E11.9 Type 2 diabetes mellitus without complications; R07.9 Chest pain, unspecified; Z79.899 Other long term (current) drug therapy; Z20.828 Contact with and (suspected) exposure to other viral communicable diseases
CPT/HCPCS: 0241U; 36000; 36415; 36600; 71046; 71250; 80048; 80053; 81015; 82375; 82803; 82947; 83605; 83735; 83880; 84132; 84484; 85025; 85379; 85610; 85730; 87040; 93005; 94640; 94760; 99285; 93268; J0456; J0696; J3475; A9270-GY; G0378

== ENCOUNTER 2024-01-02 08:07 | Emergency (ER) | payer OTHER ==
[2024-01-02 08:15] VITALS: TEMP 97.7
--- NOTE | 2024-01-02 08:19 | ERPHSYRPT ---
- History of Present Illness Time Seen by Provider: 01/02/24 08:07 Source: patient Exam Limitations: no limitations Physician History: Pt states she has had shortness of air for the past 2 weeks, has been on 2 rounds of Z-rivera with last dose yesterday, had a CTA chest yesterday with a report of no PE and no pneumonia, and had an injection of steroids yesterday at [facility] office. Pt also states she was Dx'ed with COVID 2 1/2 weeks ago. Pt denies chest pain, vomiting, abdominal pain. Allergies/Adverse Reactions: celecoxib [From Celebrex] Allergy (Severe, Verified 01/02/24 08:15) Swelling latex Allergy (Severe, Verified 01/02/24 08:15) penicillin G Allergy (Intermediate, Verified 01/02/24 08:15) Hives Penicillins Allergy (Unknown, Verified 01/02/24 08:15) liraglutide [From Victoza] Allergy (Verified 01/02/24 08:15) lisinopril Allergy (Verified 01/02/24 08:15) Home Medications: Albuterol Sulfate [Proventil] 2 puff IH DAILY PRN PRN 10/13/12 [History] Montelukast Sodium 10 mg [Singulair 10 MG] 10 mg PO HS 10/13/12 [History] Metoprolol Succinate [Toprol Xl] 100 mg PO BID 01/19/17 [History] Furosemide 40 mg [Lasix 40 MG] 40 mg PO DAILY 04/05/17 [History] Losartan Potassium 100 mg PO DAILY 04/05/17 [History] Omeprazole 20 MG [Prilosec 20 mg] 20 mg PO DAILY 04/05/17 [History] Diltiazem HCl Cd [Cardizem CD ] 120 mg PO DAILY 07/08/18 [History] Paroxetine HCl 20 mg [Paxil 20 MG] 10 mg PO DAILY 07/08/18 [History] Hydrocodone/APAP 10/325 mg [[place] 10/325 MG TableT] 1 tab PO TIDPRN PRN 01/08/20 [History] Nitroglycerin 0.4 mg Tablet [Nitrostat 0.4 MG Tablet] 0.4 mg SL UD PRN 01/08/20 [History] Dupilumab [Dupixent Syringe] 300 mg SQ DIRECTIONS UNKNOWN 01/07/21 [History] Fexofenadine HCl [Sally] 30 mg PO DAILY 01/07/21 [History] Meloxicam [Mobic] 7.5 mg PO BID 01/07/21 [History] Tamsulosin HCl [Flomax] 0.4 mg PO DAILY PRN 01/07/21 [History] Tiotropium [place] [Spiriva Handihaler] 2 puff IH DAILY 01/07/21 [History] ondansetron HCL [Zofran] 4 mg PO BID PRN 01/07/21 [History] Isosorbide Mononitrate 30 mg [Imdur 30 MG] 1 tab PO DAILY 08/17/21 [Histo ry] Aspirin EC 81 mg [Ecotrin 81 mg] 81 mg PO DAILY 06/20/22 [History] Atorvastatin Calcium 40 mg PO HS 06/20/22 [History] Cholecalciferol (Vitamin D3) [Vitamin D3] 50,000 unit PO WEEKLY 06/20/22 [History] Prednisone 10 mg [Deltasone 10 mg] 20 mg PO DAILY 06/20/22 [History] Fluticasone/Umeclidin/Vilanter [Trelegy Ellipta 200-62.5-25] 1 each IH DAILY 01/02/24 [History] Sitagliptin Phosphate 50 MG [Januvia 50 MG] 100 mg PO DAILY 01/02/24 [History] Hx Tetanus, Diphtheria Vaccination/Date Given: Yes Hx Influenza Vaccination/Date Given: Yes Hx Pneumococcal Vaccination/Date Given: No - Review of Systems Respiratory: Dyspnea Cardiac: No Chest Pain Abdominal/Gastrointestinal: No Abdominal Pain, No Vomiting - Past Medical History Pertinent Past Medical History: Yes Neurological History: No Pertinent History ENT History: No Pertinent History, Other Cardiac History: Hypertension, Other Respiratory History: Asthma, Sleep Apnea Endocrine Medical History: Diabetes Type II, Hyperthyroidism Musculoskeletal History: Other GI Medical History: GERD History: Other Psycho-Social History: No Pertinent History Female Reproductive Disorders: Fibroids Other Medical History: CATIE BUNIONECTOMY, STRESS FX LEFT FOOT, CHOLECYSTECTOMY, C-SECTIONS, HYSTERECTOMY, TONSILLECTOMY, appendectomy, Anemia - Past Surgical History Past Surgical History: Yes Neuro Surgical History: No Pertinent History Cardiac: Cardiac Catheterization Respiratory: No Pertinent History Gastrointestinal: Appendectomy, Cholecystectomy Genitourinary: No Pertinent History Musculoskeletal: Orthopedic Surgery, Other Female Surgical History: Hysterectomy, Section Other Surgical History: tonsils, Bilateral feet-bunionectomy , screws to catie 2nd toes. CATIE BUNIONECTOMY, STRESS FX LEFT FOOT-ORIF, CHOLECYSTECTOMY, C-SECTIONS, HYSTERECTOMY, TONSILLECTOMY, appendectomy, ACL reconstruction Significant Family History: diabetes, hypertension - Social History Smoking Status: Never smoker Exposure to second hand smoke: No Drug Use: none Patient Lives Alone: No - Nursing Vital Signs Nursing Vital Signs: Initial Vital Signs Temperature 97.7 F 01/02/24 08:08 Pulse Rate 82 01/02/24 08:08 Respiratory Rate 25 H 01/02/24 08:08 Blood Pressure 168/101 01/02/24 08:08 O2 Sat by Pulse Oximetry 99 01/02/24 08:08 Pain Scale Pain Intensity 0 - Physical Exam General Appearance: alert Eye Exam: PERRL/EOMI Ears, Nose, Throat Exam: hearing grossly normal, normal ENT inspection, normal pharynx Neck Exam: normal inspection Respiratory Exam: lungs clear Cardiovascular/Chest Exam: normal heart sounds Abdominal/Gastrointestinal Exam: normal bowel sounds Extremity Exam: No pedal edema Peripheral Pulses Exam: dorsalis-pedis (R): 2+, dorsalis-pedis (L): 2+ Neurologic Exam: alert, cooperative Skin Exam: warm, dry SpO2 Interpretation: normal SpO2: 99 O2 Delivery: Room Air - Course EKG Interpreted by Me: RATE (86), Sinus Rhythm, Left [place] Deviation, Other (QTc = 439) - Radiology Exams Chest X-ray Interpretation: Discussed w/ radiologist (Continued nonacute chest with c hronic bony findings.) Ordered Tests: Active Orders 24 hr Category Date Time Status EKG-ER Only STAT Care 01/02/24 08:21 Active IV Insertion STAT Care 01/02/24 08:55 Active CHEST 2 VIEWS (PA AND LAT) Stat Exams 01/02/24 08:24 Completed AMYLASE Stat Lab 01/02/24 08:40 Completed CBC W DIFF Stat Lab 01/02/24 08:40 Completed LIPASE Stat Lab 01/02/24 08:40 Completed Lactic Acid Stat Lab 01/02/24 08:19 Completed Lactic Acid Stat Lab 01/02/24 10:30 Completed MAGNESIUM Stat Lab 01/02/24 08:40 Completed MONO SCREEN Stat Lab 01/02/24 08:40 Completed NT PRO BNPII Stat Lab 01/02/24 08:40 Completed TROPONIN Q4H Lab 01/02/24 08:40 Completed TROPONIN Q4H Lab 01/02/24 16:30 Ordered TROPONIN Stat Lab 01/02/24 12:25 Completed UA W/RFX UR CULTURE Stat Lab 01/02/24 10:23 Completed VENOUS BLOOD GAS Stat Lab 01/02/24 08:26 Completed Medication Summary Discontinued Medications Generic Name Dose Route Start Last Admin Trade Name Freq PRN Reason Stop Dose Admin Aspirin 324 mg 01/02/24 08:21 01/02/24 08:30 Aspirin 81 Mg Tab.Chew PO 01/02/24 08:22 324 mg STAT ONE Administration Aspirin Confirm 01/02/24 08:26 Aspirin 81 Mg Tab.Chew Administered 01/02/24 08:27 Dose 324 mg .ROUTE .STK-MED ONE Sodium Chloride 1,000 mls @ 999 mls/hr 01/02/24 08:55 01/02/24 10:49 Sodium Chloride 0.9% 1000 Ml IV 01/02/24 09:55 Infused .Q1H1M STA Infusion Sodium Chloride Confirm 01/02/24 09:46 Sodium Chloride 0.9% 1000 Ml Administered 01/02/24 09:47 Dose 1,000 mls @ ud .ROUTE .STK-MED ONE Nitroglycerin 0.4 mg 01/02/24 08:21 01/02/24 08:27 Nitroglycerin 0.4 Mg (Ed) 0.4 Mg Tab.Subl SL 01/02/24 08:22 0.4 mg STAT ONE Administration Nitroglycerin Confirm 01/02/24 08:27 Nitroglycerin 0.4 Mg (Ed) 0.4 Mg Tab.Subl Administered 01/02/24 08:28 Dose 0.4 mg SL .STK-MED ONE Nitroglycerin 0.4 mg 01/02/24 12:34 01/02/24 12:46 Nitroglycerin 0.4 Mg (Ed) 0.4 Mg Tab.Subl SL 01/02/24 12:35 Not Given STAT ONE Nitroglycerin Confirm 01/02/24 12:34 Nitroglycerin 0.4 Mg (Ed) 0.4 Mg Tab.Subl Administered 01/02/24 12:35 Dose 0.4 mg SL .STK-MED ONE Lab/Rad Data: Laboratory Result Diagrams 01/02/24 08:40 01/02/24 08:45 Laboratory Results 01/02/24 01/02/24 01/02/24 Range/Units 12:25 10:30 10:23 WBC (4.0-10.5) x10^3/uL RBC (4.1-5.4) x10^6/uL Hgb (12.0-16.0) g/dL Hct (35-47) % MCV (78-100) fL MCH (26-32) pg MCHC (32-36) g/dL RDW (11.5-14.0) % Plt Count (150-450) x10^3/uL MPV (7.5-11.0) fL Gran % (36.0-66.0) % Immature Gran % (Auto) (0.00-0.4) % Nucleat RBC Rel Count (0.00-0.1) % Eos # (Auto) (0-0.5) x10^3/uL Immature Gran # (Auto) (0.00-0.03) x10^3u/L Absolute Lymphs (auto) (1.0-4.6) x10^3/uL Absolute Monos (auto) (0.0-1.3) x10^3/uL Absolute Nucleated RBC (0.00-0.01) x10^3u/L Lymphocytes % (24.0-44.0) % Monocytes % (0.0-12.0) % Eosinophils % (0.00-5.0) % Basophils % (0.0-0.4) % Absolute Granulocytes (1.4-6.9) x10^3/uL Basophils # (0-0.4) x10^3/uL pO2/FiO2 Ratio % VBG pH (7.32-7.42) VBG pCO2 at Pat Temp (42-55) mm/Hg VBG pO2 at Pat Temp (25-40) mm/Hg VBG HCO3 (22-28) meq/L VBG O2 Sat (Stephen) (95-100) VBG Base Excess (-2.0-2.0) VBG Hemoglobin VBG Carboxyhemoglobin (0.0-6.9) % T HGB POC Potassium (3.5-5.1) Sodium Direct (138-146) mmol/L Potassium (3.5-4.9) mmol/L Chloride (98-109) mmol/L Carbon Dioxide (24-29) mmol/L Venous BUN (8-26) mg/dL Creatinine (0.6-1.3) mg/dL Glucose (70-105) mg/dL Lactic Acid 1.6 (0.4-2.0) Ionized Calcium (1.12-1.32) mmol/L Troponin I < 0.012 (0.000-0.033) ng/mL NT-Pro-B Natriuret Pep (<300) pg/mL Lipase (23-300) U/L Urine Color Yellow (Yellow) Urine Appearance Cloudy A (Clear) Urine pH 6.5 (4.6-8.0) Ur Specific [place] >=1.030 A (1.005-1.030) Urine Protein 30 (Negative) Urine Glucose (UA) >=1000 A (Negative) mg/dL Urine Ketones Trace A (Negative) Urine Blood Negative (Negative) Urine Nitrite Negative (Negative) Urine Bilirubin Negative (Negative) Urine Urobilinogen 1.0 A (0.2) mg/dL Ur Leukocyte Esterase Negative (Negative) U Hyaline Cast (Auto) NONE SEEN (0-2) /LPF Urine Microscopic RBC 0-2 (0-5) /HPF Urine Microscopic WBC 0-2 (0-5) /HPF Ur Epithelial Cells Rare (None Seen) /HPF Urine Bacteria None Seen (None Seen) /HPF Urine Culture Reflexed NO (NO) Monoscreen (NEGATIVE) Influenza Type A Ag (NEGATIVE) Influenza Type B Ag (NEGATIVE) RSV (PCR) (NEGATIVE) SARS-CoV-2 (PCR) (NEGATIVE) Group A Strep Antibody (NEGATIVE) 01/02/24 01/02/24 01/02/24 Range/Units 08:45 08:40 08:40 WBC (4.0-10.5) x10^3/uL RBC (4.1-5.4) x10^6/uL Hgb (12.0-16.0) g/dL Hct (35-47) % MCV (78-100) fL MCH (26-32) pg MCHC (32-36) g/dL RDW (11.5-14.0) % Plt Count (150-450) x10^3/uL MPV (7.5-11.0) fL Gran % (36.0-66.0) % Immature Gran % (Auto) (0.00-0.4) % Nucleat RBC Rel Count (0.00-0.1) % Eos # (Auto) (0-0.5) x10^3/uL Immature Gran # (Auto) (0.00-0.03) x10^3u/L Absolute Lymphs (auto) (1.0-4.6) x10^3/uL Absolute Monos (auto) (0.0-1.3) x10^3/uL Absolute Nucleated RBC (0.00-0.01) x10^3u/L Lymphocytes % (24.0-44.0) % Monocytes % (0.0-12.0) % Eosinophils % (0.00-5.0) % Basophils % (0.0-0.4) % Absolute Granulocytes (1.4-6.9) x10^3/uL Basophils # (0-0.4) x10^3/uL pO2/FiO2 Ratio % VBG pH (7.32-7.42) VBG pCO2 at Pat Temp (42-55) mm/Hg VBG pO2 at Pat Temp (25-40) mm/Hg VBG HCO3 (22-28) meq/L VBG O2 Sat (Stephen) (95-100) VBG Base Excess (-2.0-2.0) VBG Hemoglobin VBG Carboxyhemoglobin (0.0-6.9) % T HGB POC Potassium (3.5-5.1) Sodium Direct 136 L (138-146) mmol/L Potassium 3.8 (3.5-4.9) mmol/L Chloride 100 (98-109) mmol/L Carbon Dioxide 25 (24-29) mmol/L Venous BUN 11 (8-26) mg/dL Creatinine 0.6 (0.6-1.3) mg/dL Glucose 218 H (70-105) mg/dL Lactic Acid (0.4-2.0) Ionized Calcium 1.16 (1.12-1.32) mmol/L Troponin I (0.000-0.033) ng/mL NT-Pro-B Natriuret Pep (<300) pg/mL Lipase (23-300) U/L Urine Color (Yellow) Urine Appearance (Clear) Urine pH (4.6-8.0) Ur Specific [place] (1.005-1.030) Urine Protein (Negative) Urine Glucose (UA) (Negative) mg/dL Urine Ketones (Negative) Urine Blood (Negative) Urine Nitrite (Negative) Urine Bilirubin (Negative) Urine Urobilinogen (0.2) mg/dL Ur Leukocyte Esterase (Negative) U Hyaline Cast (Auto) (0-2) /LPF Urine Microscopic RBC (0-5) /HPF Urine Microscopic WBC (0-5) /HPF Ur Epithelial Cells (None Seen) /HPF Urine Bacteria (None Seen) /HPF Urine Culture Reflexed (NO) Monoscreen NEGATIVE (NEGATIVE) Influenza Type A Ag NEGATIVE (NEGATIVE) Influenza Type B Ag NEGATIVE (NEGATIVE) RSV (PCR) NEGATIVE (NEGATIVE) SARS-CoV-2 (PCR) NEGATIVE (NEGATIVE) Group A Strep Antibody (NEGATIVE) 01/02/24 01/02/24 01/02/24 Range/Units 08:40 08:40 08:40 WBC (4.0-10.5) x10^3/uL RBC (4.1-5.4) x10^6/uL Hgb (12.0-16.0) g/dL Hct (35-47) % MCV (78-100) fL MCH (26-32) pg MCHC (32-36) g/dL RDW (11.5-14.0) % Plt Count (150-450) x10^3/uL MPV (7.5-11.0) fL Gran % (36.0-66.0) % Immature Gran % (Auto) (0.00-0.4) % Nucleat RBC Rel Count (0.00-0.1) % Eos # (Auto) (0-0.5) x10^3/uL Immature Gran # (Auto) (0.00-0.03) x10^3u/L Absolute Lymphs (auto) (1.0-4.6) x10^3/uL Absolute Monos (auto) (0.0-1.3) x10^3/uL Absolute Nucleated RBC (0.00-0.01) x10^3u/L Lymphocytes % (24.0-44.0) % Monocytes % (0.0-12.0) % Eosinophils % (0.00-5.0) % Basophils % (0.0-0.4) % Absolute Granulocytes (1.4-6.9) x10^3/uL Basophils # (0-0.4) x10^3/uL pO2/FiO2 Ratio % VBG pH (7.32-7.42) VBG pCO2 at Pat Temp (42-55) mm/Hg VBG pO2 at Pat Temp (25-40) mm/Hg VBG HCO3 (22-28) meq/L VBG O2 Sat (Stephen) (95-100) VBG Base Excess (-2.0-2.0) VBG Hemoglobin VBG Carboxyhemoglobin (0.0-6.9) % T HGB POC Potassium (3.5-5.1) Sodium Direct (138-146) mmol/L Potassium (3.5-4.9) mmol/L Chloride (98-109) mmol/L Carbon Dioxide (24-29) mmol/L Venous BUN (8-26) mg/dL Creatinine (0.6-1.3) mg/dL Glucose (70-105) mg/dL Lactic Acid (0.4-2.0) Ionized Calcium (1.12-1.32) mmol/L Troponin I < 0.012 (0.000-0.033) ng/mL NT-Pro-B Natriuret Pep 104 (<300) pg/mL Lipase (23-300) U/L Urine Color (Yellow) Urine Appearance (Clear) Urine pH (4.6-8.0) Ur Specific [place] (1.005-1.030) Urine Protein (Negative) Urine Glucose (UA) (Negative) mg/dL Urine Ketones (Negative) Urine Blood (Negative) Urine Nitrite (Negative) Urine Bilirubin (Negative) Urine Urobilinogen (0.2) mg/dL Ur Leukocyte Esterase (Negative) U Hyaline Cast (Auto) (0-2) /LPF Urine Microscopic RBC (0-5) /HPF Urine Microscopic WBC (0-5) /HPF Ur Epithelial Cells (None Seen) /HPF Urine Bacteria (None Seen) /HPF Urine Culture Reflexed (NO) Monoscreen (NEGATIVE) Influenza Type A Ag (NEGATIVE) Influenza Type B Ag (NEGATIVE) RSV (PCR) (NEGATIVE) SARS-CoV-2 (PCR) (NEGATIVE) Group A Strep Antibody NOT DETECTED (NEGATIVE) 01/02/24 01/02/24 01/02/24 Range/Units 08:40 08:26 08:19 WBC 9.6 (4.0-10.5) x10^3/uL RBC 4.43 (4.1-5.4) x10^6/uL Hgb 13.3 (12.0-16.0) g/dL Hct 39.7 (35-47) % MCV 89.6 (78-100) fL MCH 30.0 (26-32) pg MCHC 33.5 (32-36) g/dL RDW 13.2 (11.5-14.0) % Plt Count 292 (150-450) x10^3/uL MPV 9.5 (7.5-11.0) fL Gran % 84.7 H (36.0-66.0) % Immature Gran % (Auto) 1.4 H (0.00-0.4) % Nucleat RBC Rel Count 0.0 (0.00-0.1) % Eos # (Auto) 0.01 (0-0.5) x10^3/uL Immature Gran # (Auto) 0.13 H (0.00-0.03) x10^3u/L Absolute Lymphs (auto) 0.94 L (1.0-4.6) x10^3/uL Absolute Monos (auto) 0.36 (0.0-1.3) x10^3/uL Absolute Nucleated RBC 0.00 (0.00-0.01) x10^3u/L Lymphocytes % 9.8 L (24.0-44.0) % Monocytes % 3.8 (0.0-12.0) % Eosinophils % 0.1 (0.00-5.0) % Basophils % 0.2 (0.0-0.4) % Absolute Granulocytes 8.14 H (1.4-6.9) x10^3/uL Basophils # 0.02 (0-0.4) x10^3/uL pO2/FiO2 Ratio 21.0 % VBG pH 7.50 H (7.32-7.42) VBG pCO2 at Pat Temp 33 L (42-55) mm/Hg VBG pO2 at Pat Temp 100 H (25-40) mm/Hg VBG HCO3 25.7 (22-28) meq/L VBG O2 Sat (Stephen) 98.1 (95-100) VBG Base Excess 2.9 H (-2.0-2.0) VBG Hemoglobin 13.7 VBG Carboxyhemoglobin 0.6 (0.0-6.9) % T HGB POC Potassium 4.2 (3.5-5.1) Sodium Direct (138-146) mmol/L Potassium (3.5-4.9) mmol/L Chloride (98-109) mmol/L Carbon Dioxide (24-29) mmol/L Venous BUN (8-26) mg/dL Creatinine (0.6-1.3) mg/dL Glucose (70-105) mg/dL Lactic Acid 2.9 H (0.4-2.0) Ionized Calcium (1.12-1.32) mmol/L Troponin I (0.000-0.033) ng/mL NT-Pro-B Natriuret Pep (<300) pg/mL Lipase (23-300) U/L Urine Color (Yellow) Urine Appearance (Clear) Urine pH (4.6-8.0) Ur Specific [place] (1.005-1.030) Urine Protein (Negative) Urine Glucose (UA) (Negative) mg/dL Urine Ketones (Negative) Urine Blood (Negative) Urine Nitrite (Negative) Urine Bilirubin (Negative) Urine Urobilinogen (0.2) mg/dL Ur Leukocyte Esterase (Negative) U Hyaline Cast (Auto) (0-2) /LPF Urine Microscopic RBC (0-5) /HPF Urine Microscopic WBC (0-5) /HPF Ur Epithelial Cells (None Seen) /HPF Urine Bacteria (None Seen) /HPF Urine Culture Reflexed (NO) Monoscreen (NEGATIVE) Influenza Type A Ag (NEGATIVE) Influenza Type B Ag (NEGATIVE) RSV (PCR) (NEGATIVE) SARS-CoV-2 (PCR) (NEGATIVE) Group A Strep Antibody (NEGATIVE) - Progress Progress: improved Progress Note: 01/02/24 08:27 CTA Chest yesterday impression: 1. Negative pulmonary embolus. No new/acute cardiopulmonary abnormalities. 2. Stable indeterminant right lower lobe subcentimeter noncalcified nodule. Again commend follow-up per Fleischner guidelines. 3. Again incidental L2-L3 degenerative changes and fatty liver. Counseled pt/family regarding: lab results, diagnosis, need for follow-up, rad results Medical Desision Making - Diagnostic Testing Diagnostic test were ordered, analyzed, and reviewed by me: Yes Radiological Interpretation: Discussed w/ radiologist - Departure Departure Disposition: Home Clinical Impression: Elevated lactic acid level, Dyspnea Condition: Stable Critical Care Time: No Referrals: ROBIN MICHELE MD [Primary Care Provider] - Follow up/PCP as directed Instructions: Shortness of Breath (Dyspnea) (DC) Additional Instructions: Follow up with private doctor tomorrow. Forms: Work/School Release Form
[2024-01-02] MEDS ORDERED: BABY ASPIRIN 81 MG CHEW ONE (08:26)
[2024-01-02] MEDS ORDERED: Nitrostat 0.4 MG (ED) SL ONE ×2 (08:27→12:34)
[2024-01-02] MEDS: Nitrostat 0.4 MG (ED) SL ONE ×2 (08:27→12:36)
[2024-01-02] MEDS: BABY ASPIRIN 81 MG CHEW PO ONE (08:30)
[2024-01-02 08:34] LABS: VBG BASE EXCESS 2.9 (-2.0-2.0); VBG CARBOXYHEMOGLOBIN 0.6 % T HGB (0.0-6.9); VBG HCO3- 25.7 meq/L (22-28); VBG HEMOGLOBIN 13.7; VBG O2 SATURATION 98.1 (95-100); VBG POTASSIUM 4.2 (3.5-5.1); VBG pH 7.5 (7.32-7.42)
[2024-01-02 08:49] LABS: Absolute Neutrophil Ct (ANC) 8.14 x10^3/uL (1.4-6.9); BASOPHIL % 0.2 % (0.0-0.4); Basophil (Absolute #) 0.02 x10^3/uL (0-0.4); Eosinophil % 0.1 % (0.00-5.0); Eosinophil (Absolute #) 0.01 x10^3/uL (0-0.5); Hematocrit 39.7 % (35-47); Hemoglobin 13.3 g/dL (12.0-16.0); IMMATURE GRAN # 0.13 x10^3u/L (0.00-0.03); IMMATURE GRAN % 1.4 % (0.00-0.4); Lymphocyte (Absolute #) 0.94 x10^3/uL (1.0-4.6); Lymphocytes % 9.8 % (24.0-44.0); Mean Cell Volume 89.6 fL (78-100); Mean Corpuscular Hgb Concent. 33.5 g/dL (32-36); Mean Platelet Volume 9.5 fL (7.5-11.0); Monocyte (Absolute #) 0.36 x10^3/uL (0.0-1.3); Monocytes % 3.8 % (0.0-12.0); Neutrophil % 84.7 % (36.0-66.0); Platelet Count 292 x10^3/uL (150-450); Red Blood Count 4.43 x10^6/uL (4.1-5.4); Red Cell Distribution Width 13.2 % (11.5-14.0); White Blood Count 9.6 x10^3/uL (4.0-10.5)
--- NOTE | 2024-01-02 08:56 | XRAY ---
Indication: Dyspnea. Comparison: December 18, 2023. PA/lateral chest inflated and remains clear. Heart and mediastinal structures within normal limits. Bony thorax intact again with minimal generative changes and minimal scoliosis. Impression: Continued nonacute chest with chronic bony findings.
[2024-01-02 09:02] LABS: ISTAT CREA 0.6 mg/dL (0.6-1.3); ISTAT K 3.8 mmol/L (3.5-4.9); ISTAT iCA 1.16 mmol/L (1.12-1.32)
[2024-01-02 09:12] LABS: NT PRO BNPII 104 pg/mL (<300); TROPONIN < 0.012 ng/mL (0.000-0.033)
[2024-01-02 09:21] LABS: INFLUENZA A NEGATIVE (NEGATIVE); INFLUENZA B NEGATIVE (NEGATIVE); RESPIRATORY SYNCTIAL VIRUS NEGATIVE (NEGATIVE); SARS-CoV-2 Xpert Express NEGATIVE (NEGATIVE)
[2024-01-02] MEDS ORDERED: Sodium Chloride 0.9% 1000 ML 1,000 ML ONE (09:46)
[2024-01-02] MEDS: Sodium Chloride 0.9% 1000 ML 1,000 ML IV STA (09:48)
[2024-01-02 10:33] LABS: Appearance Cloudy (Clear); Bacteria None Seen /HPF (None Seen); Bilirubin Negative (Negative); Blood Negative (Negative); Epithelial Cells Rare /HPF (None Seen); Glucose, Urine >=1000 mg/dL (Negative); Hyaline Casts NONE SEEN /LPF (0-2); Ketones Trace (Negative); Leukocyte Esterase Negative (Negative); Nitrite Negative (Negative); Ph 6.5 (4.6-8.0); Protein,Urine Dip 30 (Negative); RBC 0-2 /HPF (0-5); Specific Gravity >=1.030 (1.005-1.030); WBC 0-2 /HPF (0-5)
[2024-01-02 10:34] LABS: ADD URINE CULTURE? NO (NO)
[2024-01-02 14:09] VITALS: O2SAT 99
[2024-01-02 14:19] VITALS: BP 160/83; PULSE 72; RESP 18
[2024-01-02 18:28] LABS: BILIRUBIN,TOTAL 0.7 mg/dL (0.2-1.3); Direct Bilirubin 0.4 mg/dL (0.0-0.4)
== END 2024-01-02 14:22 | disposition home or self-care (01) ==
LOC: ED 08:07
DX: R06.00 Dyspnea, unspecified (principal); E87.20 Acidosis, unspecified; I10 Essential (primary) hypertension; E11.9 Type 2 diabetes mellitus without complications; Z79.52 Long term (current) use of systemic steroids; Z79.899 Other long term (current) drug therapy
CPT/HCPCS: 0241U; 36415; 71046; 80047; 81001; 82150; 82247; 82248; 82805; 83605; 83690; 83735; 83880; 84075; 84450; 84460; 84484; 85025; 86308; 87651; 93005; 99284; A9270-GY

== ENCOUNTER 2024-01-04 14:13 | Emergency (ER) | payer OTHER ==
[2024-01-04 14:27] VITALS: PULSE 68; RESP 20; TEMP 97.7
--- NOTE | 2024-01-04 14:35 | ERPHSYRPT ---
- History of Present Illness Time Seen by Provider: 01/04/24 14:32 Source: patient Exam Limitations: no limitations Patient Subjective Stated Complaint: SOB Triage Nursing Assessment: Patient ambulated back to ED and transferred self to bed. Patient A+O X 3. Patient's skin pink, warm and dry. Patient complains of increased SOB today. Patient states she has been having increased SOB since having Covid 1 month. Patient states over the past two weeks she has been on 2 atb, 2 PO steroids, IM steroids and breathing tx. Patient denies pain or dis comfort. Lungs noted to be diminished. 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 Her primary care provider is Dr. Guadalupe. Her multimedia coordinator is Dr. Umair Gar. In the last 3 weeks patient has had worsening shortness of breath. She was diagnosed with COVID 2 and half w eeks ago. She has had 2 rounds of Z-Glenn antibiotics and she has had injections of steroids as well as oral steroid outpatient therapy. She was here on 01/02/2024 the day after she had a negative CTA of the chest (negative for pneumonia, negative for pulmonary embolism). She had a full workup on that date which was negative for any acute or emergent medical issue. Her twelve-lead EKG on that date showed a normal sinus rhythm of 86 with left axis deviation. Patient does not smoke cigarettes. She does use her nebulizer machine and medication as she is supposed to. She denies chest pain. She has no abdominal pain. She has not had a fever. She has noticed that since she was started on Januvia, she has had episodes of lactic acid that have been very high. It was then where she also noticed cough, shortness of breath and sinus congestion symptoms. She is wondering if this might be contributing to her symptoms currently. Patient has a history of hypertension, sleep apnea, asthma, g astroesophageal reflux disease and hypothyroidism. Patient's multimedia coordinator wants this patient evaluated and admitted to the hospital to have the patient receive intravenous antibiotics, intravenous steroids and nebulizer treatments. Her room air oxygen saturation level is 99% at this time. Timing/Duration: week(s) (2) Activities at Onset: none Severity of Dyspnea-Max: moderate Severity of Dyspnea-Current: moderate Possible Cause: frequent episodes (Especially recently) Modifying Factors: Improves With: nothing Associated Symptoms: anxiety, No chest pain/discomfort, No wheezing, No weakness Allergies/Adverse Reactions: celecoxib [From Celebrex] Allergy (Severe, Verified 01/04/24 14:18) Swelling latex Allergy (Severe, Verified 01/04/24 14:18) penicillin G Allergy (Intermediate, Verified 01/04/24 14:18) Hives Penicillins Allergy (Unknown, Verified 01/04/24 14:18) liraglutide [From Victoza] Allergy (Verified 01/04/24 14:18) lisinopril Allergy (Verified 01/04/24 14:18) Home Medications: Albuterol Sulfate [Proventil] 2 puff IH DAILY PRN PRN 10/13/12 [History] Montelukast Sodium 10 mg [Singulair 10 MG] 10 mg PO HS 10/13/12 [History] Metoprolol Succinate [Toprol Xl] 100 mg PO BID 01/19/17 [History] Furosemide 40 mg [Lasix 40 MG] 40 mg PO DAILY 04/05/17 [History] Losartan Potassium 100 mg PO DAILY 04/05/17 [History] Omeprazole 20 MG [Prilosec 20 mg] 20 mg PO DAILY 04/05/17 [History] Diltiazem HCl Cd [Cardizem CD ] 120 mg PO DAILY 07/08/18 [History] Paroxetine HCl 20 mg [Paxil 20 MG] 10 mg PO DAILY 07/08/18 [History] Hydrocodone/APAP 10/325 mg [Stratford 10/325 MG TableT] 1 tab PO TIDPRN PRN 01/08/20 [History] Nitroglycerin 0.4 mg Tablet [Nitrostat 0.4 MG Tablet] 0.4 mg SL UD PRN 01/08/20 [History] Dupilumab [Dupixent Syringe] 300 mg SQ DIRECTIONS UNKNOWN 01/07/21 [History] Fexofenadine HCl [Sally] 30 mg PO DAILY 01/07/21 [History] Meloxicam [Mobic] 7.5 mg PO BID 01/07/21 [History] Tamsulosin HCl [Flomax] 0.4 mg PO DAILY PRN 01/07/21 [History] Tiotropium Freeman [Spiriva Handihaler] 2 puff IH DAILY 01/07/21 [History] ondansetron HCL [Zofran] 4 mg PO BID PRN 01/07/21 [History] Isosorbide Mononitrate 30 mg [Imdur 30 MG] 1 tab PO DAILY 08/17/21 [History] Aspirin EC 81 mg [Ecotrin 81 mg] 81 mg PO DAILY 06/20/22 [History] Atorvastatin Calcium 40 mg PO HS 06/20/22 [History] Cholecalciferol (Vitamin D3) [Vitamin D3] 50,000 unit PO WEEKLY 06/20/22 [History] Prednisone 10 mg [Deltasone 10 mg] 20 mg PO DAILY 06/20/22 [History] Fluticasone/Umeclidin/Vilanter [Trelegy Ellipta 200-62.5-25] 1 each IH DAILY 01/02/24 [History] Sitagliptin Phosphate 50 MG [Januvia 50 MG] 100 mg PO DAILY 01/02/24 [History] Hx Tetanus, Diphtheria Vaccination/Date Given: Yes Hx Influenza Vaccination/Date Given: Yes Hx Pneumococcal Vaccination/Date Given: No Immunizations Up to Date: Yes Travel Risk - International Travel Have you traveled outside of the country in past 3 weeks: No - Emerging Infectious Disease Are you exhibiting symptoms associated with any current EIDs: No Symptoms: Shortness of Breath - Review of Systems Constitutional: No Symptoms Eyes: No Symptoms Ears, Nose, & Throat: No Symptoms Respiratory: Dyspnea (Feels short of breath even when still and sitting), Dyspnea on Exertion (HERNANDEZ) (Worse with exertion) Cardiac: No Symptoms Abdominal/Gastrointestinal: No Symptoms Genitourinary Symptoms: No Symptoms Musculoskeletal: No Symptoms Skin: No Symptoms Neurological: No Symptoms Psychological: No Symptoms Endocrine: No Symptoms Hematologic/Lymphatic: No Symptoms Immunological/Allergic: No Symptoms All Other Systems: Reviewed and Negative - Past Medical History Pertinent Past Medical History: Yes Neurological History: No Pertinent History ENT History: No Pertinent History, Other Cardiac History: Hypertension, Other Respiratory History: Asthma, Sleep Apnea Endocrine Medical History: Diabetes Type II, Hyperthyroidism Musculoskeletal History: Other GI Medical History: GERD History: Other Psycho-Social History: No Pertinent History Female Reproductive Disorders: Fibroids Other Medical History: CATIE BUNIONECTOMY, STRESS FX LEFT FOOT, CHOLECYSTECTOMY, C-SECTIONS, HYSTERECTOMY, TONSILLECTOMY, appendectomy, Anemia - Past Surgical History Past Surgical History: Yes Neuro Surgical History: No Pertinent History Cardiac: Cardiac Catheterization Respiratory: No Pertinent History Gastrointestinal: Appendectomy, Cholecystectomy Genitourinary: No Pertinent History Musculoskeletal: Orthopedic Surgery, Other Female Surgical History: Hysterectomy, Section Other Surgical History: tonsils, Bilateral feet-bunionectomy , screws to catie 2nd toes. CATIE BUNIONECTOMY, STRESS FX LEFT FOOT-ORIF, CHOLECYSTECTOMY, C-SECTIONS, HYSTERECTOMY, TONSILLECTOMY, appendectomy, ACL reconstruction Significant Family History: diabetes, hypertension - Female History Hx Last Menstrual Period: hysterectomy 2009 Hx Now: No - Social History Smoking Status: Never smoker Exposure to second hand smoke: No Drug Use: none Patient Lives Alone: No - Nursing Vital Signs Nursing Vital Signs: Initial Vital Signs Temperature 97.7 F 01/04/24 14:19 Pulse Rate 68 01/04/24 14:19 Respiratory Rate 20 01/04/24 14:19 Blood Pressure 107/78 01/04/24 14:19 O2 Sat by Pulse Oximetry 99 01/04/24 14:19 Pain Scale Pain Intensity 0 - Physical Exam General Appearance: no apparent distress, alert, anxiety Eye Exam: PERRL/EOMI, eyes nml inspection Ears, Nose, Throat Exam: hearing grossly normal, normal ENT inspection, normal pharynx Neck Exam: normal inspection, non-tender, supple, full range of motion Respiratory Exam: normal breath sounds, lungs clear, airway intact, No chest tenderness, No respiratory distress Cardiovascular/Chest Exam: normal heart sounds, regular rate/rhythm Abdominal/Gastrointestinal Exam: soft, normal bowel sounds, No tenderness Rectal Exam: not done Extremity Exam: non-tender, normal range of motion, normal inspection Neurologic Exam: alert, oriented x 3, cooperative, 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 as tested, nml cerebellar function, nml station & gait, sensation nml Skin Exam: normal color, warm, dry Lymphatic Exam: No adenopathy SpO2 Interpretation: normal SpO2: 99 O2 Delivery: Room Air - Course Nursing assessment & vital signs reviewed: Yes Ordered Tests: Active Orders 24 hr Category Date Time Status Crystal Gazer STAT Care 01/04/24 14:36 Active EKG-ER Only STAT Care 01/04/24 14:35 Active IV Insertion STAT Care 01/04/24 14:35 Active Pulse Oximetry (ED) STAT Care 01/04/24 14:35 Active CHEST 1 VIEW (PORTABLE) Stat Exams 01/04/24 14:44 Completed BLOOD CULTURE Stat Lab 01/04/24 15:05 Received CBC W DIFF Stat Lab 01/04/24 14:50 Completed CMP Stat Lab 01/04/24 14:50 Completed Lactic Acid Routine Lab 01/04/24 17:50 Completed Lactic Acid Stat Lab 01/04/24 14:40 Completed MAGNESIUM Stat Lab 01/04/24 14:50 Completed NT PRO BNPII Stat Lab 01/04/24 14:50 Completed TROPONIN Q4H Lab 01/04/24 14:50 Completed TROPONIN Q4H Lab 01/04/24 17:45 Completed TROPONIN Q4H Lab 01/04/24 22:45 Ordered Medication Summary Generic Name Dose Route Start Last Admin Trade Name Freq PRN Reason Stop Dose Admin Sodium Chloride 500 mls @ 50 mls/hr 01/04/24 18:30 Sodium Chloride 0.9% 500 Ml IV 02/03/24 18:29 .Q10H ELOY Discontinued Medications Generic Name Dose Route Start Last Admin Trade Name Freq PRN Reason Stop Dose Admin Sodium Chloride 1,000 mls @ 999 mls/hr 01/04/24 15:46 01/04/24 17:09 Sodium Chloride 0.9% 1000 Ml IV 01/04/24 16:46 Infused .Q1H1M STA Infusion Sodium Chloride Confirm 01/04/24 16:02 Sodium Chloride 0.9% 1000 Ml Administered 01/04/24 16:03 Dose 1,000 mls @ ud .ROUTE .STK-MED ONE Lab/Rad Data: Laboratory Result Diagrams 01/04/24 14:50 01/04/24 14:50 Laboratory Results 01/04/24 01/04/24 01/04/24 Range/Units 17:50 17:45 15:05 WBC (4.0-10.5) x10^3/uL RBC (4.1-5.4) x10^6/uL Hgb (12.0-16.0) g/dL Hct (35-47) % MCV (78-100) fL MCH (26-32) pg MCHC (32-36) g/dL RDW (11.5-14.0) % Plt Count (150-450) x10^3/uL MPV (7.5-11.0) fL Gran % (36.0-66.0) % Immature Gran % (Auto) (0.00-0.4) % Nucleat RBC Rel Count (0.00-0.1) % Eos # (Auto) (0-0.5) x10^3/uL Immature Gran # (Auto) (0.00-0.03) x10^3u/L Absolute Lymphs (auto) (1.0-4.6) x10^3/uL Absolute Monos (auto) (0.0-1.3) x10^3/uL Absolute Nucleated RBC (0.00-0.01) x10^3u/L Lymphocytes % (24.0-44.0) % Monocytes % (0.0-12.0) % Eosinophils % (0.00-5.0) % Basophils % (0.0-0.4) % Absolute Granulocytes (1.4-6.9) x10^3/uL Basophils # (0-0.4) x10^3/uL Sodium (135-145) mmol/L Potassium (3.5-5.1) mmol/L Chloride (98-107) mmol/L Carbon Dioxide (22-30) mmol/L Anion Gap (5-15) MEQ/L BUN (7-17) mg/dL Creatinine (0.52-1.04) mg/dL Estimated GFR ML/MIN Glucose (74-106) mg/dL Lactic Acid 2.8 H (0.4-2.0) Calcium (8.4-10.2) mg/dL Magnesium (1.6-2.3) mg/dL Total Bilirubin (0.2-1.3) mg/dL AST (14-36) U/L ALT (0-35) U/L Alkaline Phosphatase (38-126) U/L Troponin I < 0.012 (0.000-0.033) ng/mL NT-Pro-B Natriuret Pep (<300) pg/mL Serum Total Protein (6.3-8.2) g/dL Albumin (3.5-5.0) g/dL Influenza Type A Ag NEGATIVE (NEGATIVE) Influenza Type B Ag NEGATIVE (NEGATIVE) RSV (PCR) NEGATIVE (NEGATIVE) SARS-CoV-2 (PCR) NEGATIVE (NEGATIVE) 01/04/24 01/04/24 01/04/24 Range/Units 14:50 14:50 14:50 WBC 10.9 H (4.0-10.5) x10^3/uL RBC 4.70 (4.1-5.4) x10^6/uL Hgb 14.1 (12.0-16.0) g/dL Hct 42.1 (35-47) % MCV 89.6 (78-100) fL MCH 30.0 (26-32) pg MCHC 33.5 (32-36) g/dL RDW 13.1 (11.5-14.0) % Plt Count 387 (150-450) x10^3/uL MPV 9.1 (7.5-11.0) fL Gran % 79.8 H (36.0-66.0) % Immature Gran % (Auto) 1.8 H (0.00-0.4) % Nucleat RBC Rel Count 0.0 (0.00-0.1) % Eos # (Auto) 0.02 (0-0.5) x10^3/uL Immature Gran # (Auto) 0.20 H (0.00-0.03) x10^3u/L Absolute Lymphs (auto) 1.44 (1.0-4.6) x10^3/uL Absolute Monos (auto) 0.50 (0.0-1.3) x10^3/uL Absolute Nucleated RBC 0.00 (0.00-0.01) x10^3u/L Lymphocytes % 13.2 L (24.0-44.0) % Monocytes % 4.6 (0.0-12.0) % Eosinophils % 0.2 (0.00-5.0) % Basophils % 0.4 (0.0-0.4) % Absolute Granulocytes 8.67 H (1.4-6.9) x10^3/uL Basophils # 0.04 (0-0.4) x10^3/uL Sodium 134 L (135-145) mmol/L Potassium 3.7 (3.5-5.1) mmol/L Chloride 96 L (98-107) mmol/L Carbon Dioxide 25 (22-30) mmol/L Anion Gap 16.3 H (5-15) MEQ/L BUN 21 H (7-17) mg/dL Creatinine 0.91 (0.52-1.04) mg/dL Estimated GFR 76.9 ML/MIN Glucose 318 H (74-106) mg/dL Lactic Acid (0.4-2.0) Calcium 9.7 (8.4-10.2) mg/dL Magnesium 1.6 (1.6-2.3) mg/dL Total Bilirubin 0.80 (0.2-1.3) mg/dL AST 20 (14-36) U/L ALT 28 (0-35) U/L Alkaline Phosphatase 85 (38-126) U/L Troponin I < 0.012 (0.000-0.033) ng/mL NT-Pro-B Natriuret Pep 61.6 (<300) pg/mL Serum Total Protein 7.2 (6.3-8.2) g/dL Albumin 4.6 (3.5-5.0) g/dL Influenza Type A Ag (NEGATIVE) Influenza Type B Ag (NEGATIVE) RSV (PCR) (NEGATIVE) SARS-CoV-2 (PCR) (NEGATIVE) 01/04/24 Range/Units 14:40 WBC (4.0-10.5) x10^3/uL RBC (4.1-5.4) x10^6/uL Hgb (12.0-16.0) g/dL Hct (35-47) % MCV (78-100) fL MCH (26-32) pg MCHC (32-36) g/dL RDW (11.5-14.0) % Plt Count (150-450) x10^3/uL MPV (7.5-11.0) fL Gran % (36.0-66.0) % Immature Gran % (Auto) (0.00-0.4) % Nucleat RBC Rel Count (0.00-0.1) % Eos # (Auto) (0-0.5) x10^3/uL Immature Gran # (Auto) (0.00-0.03) x10^3u/L Absolute Lymphs (auto) (1.0-4.6) x10^3/uL Absolute Monos (auto) (0.0-1.3) x10^3/uL Absolute Nucleated RBC (0.00-0.01) x10^3u/L Lymphocytes % (24.0-44.0) % Monocytes % (0.0-12.0) % Eosinophils % (0.00-5.0) % Basophils % (0.0-0.4) % Absolute Granulocytes (1.4-6.9) x10^3/uL Basophils # (0-0.4) x10^3/uL Sodium (135-145) mmol/L Potassium (3.5-5.1) mmol/L Chloride (98-107) mmol/L Carbon Dioxide (22-30) mmol/L Anion Gap (5-15) MEQ/L BUN (7-17) mg/dL Creatinine (0.52-1.04) mg/dL Estimated GFR ML/MIN Glucose (74-106) mg/dL Lactic Acid 4.1 H (0.4-2.0) Calcium (8.4-10.2) mg/dL Magnesium (1.6-2.3) mg/dL Total Bilirubin (0.2-1.3) mg/dL AST (14-36) U/L ALT (0-35) U/L Alkaline Phosphatase (38-126) U/L Troponin I (0.000-0.033) ng/mL NT-Pro-B Natriuret Pep (<300) pg/mL Serum Total Protein (6.3-8.2) g/dL Albumin (3.5-5.0) g/dL Influenza Type A Ag (NEGATIVE) Influenza Type B Ag (NEGATIVE) RSV (PCR) (NEGATIVE) SARS-CoV-2 (PCR) (NEGATIVE) - Progress Progress: improved, re-examined Air Movement: good Progress Note: 01/04/24 15:53 This patient's medical issue is of high complexity. My medical decision making and the assignment of high complexity to this patient's medical issue is based on review of the patient's outpatient radiographic and laboratory studies as well as prior evaluations in this emergency department. In addition, it is based on review of past medical history, review of patient's medication list, review of patient's drug allergy list, history present illness and physical findings on examination. The workup in this patient includes placement of intravenous line, infusion of normal saline solution, infusion of Solu-Medrol intravenously, respiratory therapy evaluation and intervention, twelve-lead EKG, troponin level, BNP level, CBC, CMP, magnesium level and chest x-ray. Differential diagnosis includes pneumonia, COPD, myocardial infarction, elect rolyte abnormalities, arrhythmias, anxiety issues The chest x-ray was interpreted by the radiologist and I reviewed the impression. Impression states normal heart and lungs. No new or acute findings 01/04/24 16:42 I interpreted the patient's laboratory data results. With the exception of a slightly elevated white count with slight left shift, which could be secondary to steroid use recently, and an elevated lactic acid level, there is no evidence of any other acute or emergent medical issue. I spoke with Dr. Espino, the telehospitalist that is grain operations manager at this time. I reviewed the patient history, I reviewed the patient presenting complaint, I reviewed the patient's physical findings, and results of today's workup including laboratory and radiographic studies. She does not feel that this patient meets admission criteria. She is refusing admission on that basis. 01/04/24 18:37 The patient is clinically stable at this time. Patient's room air oxygenation saturation level is 99%. She denies chest pain. She wanted to wait to make sure that the lactic acid level has decreased. Patient's lactic acid level dropped from 4.1-2.8. We will give her another half liter of normal saline solution. She also wanted to wait for the repeat troponin. This has returned and it is normal. The patient's repeat twelve-lead EKG was interpreted by me. It was performed on 01/04/2024 at 1659. Heart rate is 67 bpm. Normal sinus rhythm. No acute ischemia present. QT C is 440. There is normal axis deviation. There is normal QRS and normal intervals. Blood Culture(s) Obtained: Yes Antibiotics given: Yes Counseled pt/family regarding: lab results, diagnosis, rad results Medical Desision Making - Independent Historian Additional History obtained from: Family - Discussion of managment Care discussed with:: hospitalist Reviewed:: Test results, Need for additional workup - Diagnostic Testing Diagnostic test were ordered, analyzed, and reviewed by me: Yes Radiological Interpretation: Reviewed by me, Teleradiologist Report - Risk of complications Low Risk: Low risk of morbidity from additional dx testing or treatment - Departure Departure Disposition: Home Clinical Impression: Shortness of breath, Lactic acidemia, Hyperglycemia Condition: Stable Critical Care Time: No Referrals: ROBIN GUADALUPE MD [Primary Care Provider] - Follow up/PCP as directed Additional Instructions: Stop your Januvia. Monitor your blood sugar closely. Call your prescribing provider on 01/07/2024 to make arrangements for follow-up appointment to be seen in the next 3 to 5 days.
[2024-01-04 15:12] LABS: Absolute Neutrophil Ct (ANC) 8.67 x10^3/uL (1.4-6.9); BASOPHIL % 0.4 % (0.0-0.4); Basophil (Absolute #) 0.04 x10^3/uL (0-0.4); Eosinophil % 0.2 % (0.00-5.0); Eosinophil (Absolute #) 0.02 x10^3/uL (0-0.5); Hematocrit 42.1 % (35-47); Hemoglobin 14.1 g/dL (12.0-16.0); IMMATURE GRAN % 1.8 % (0.00-0.4); Lymphocyte (Absolute #) 1.44 x10^3/uL (1.0-4.6); Lymphocytes % 13.2 % (24.0-44.0); Mean Cell Volume 89.6 fL (78-100); Mean Corpuscular Hgb Concent. 33.5 g/dL (32-36); Mean Platelet Volume 9.1 fL (7.5-11.0); Monocytes % 4.6 % (0.0-12.0); Neutrophil % 79.8 % (36.0-66.0); Platelet Count 387 x10^3/uL (150-450); Red Cell Distribution Width 13.1 % (11.5-14.0); White Blood Count 10.9 x10^3/uL (4.0-10.5)
--- NOTE | 2024-01-04 15:23 | XRAY ---
Indication: Short of breath. Comparison: January 02, 2024 Portable chest again demonstrates normal heart and lungs. Bony thorax intact with minimal degenerative changes and minimal dextroscoliosis. No new/acute findings.
[2024-01-04 15:37] LABS: ALBUMIN 4.6 g/dL (3.5-5.0); ANION GAP 16.3 MEQ/L (5-15); BILIRUBIN,TOTAL 0.8 mg/dL (0.2-1.3); Calcium 9.7 mg/dL (8.4-10.2); Creatinine 1 0.91 mg/dL (0.52-1.04); EST GLOMERULAR FILTRATION RATE 76.9 ML/MIN; MAGNESIUM 1.6 mg/dL (1.6-2.3); NT PRO BNPII 61.6 pg/mL (<300); Potassium 3.7 mmol/L (3.5-5.1); Total Protein 7.2 g/dL (6.3-8.2)
[2024-01-04 15:52] LABS: INFLUENZA A NEGATIVE (NEGATIVE); INFLUENZA B NEGATIVE (NEGATIVE); RESPIRATORY SYNCTIAL VIRUS NEGATIVE (NEGATIVE); SARS-CoV-2 Xpert Express NEGATIVE (NEGATIVE)
[2024-01-04] MEDS ORDERED: Sodium Chloride 0.9% 1000 ML 1,000 ML ONE (16:02)
[2024-01-04] MEDS: Sodium Chloride 0.9% 1000 ML 1,000 ML IV STA (16:04)
[2024-01-04 18:04] VITALS: BP 106/71
[2024-01-04 18:43] VITALS: O2SAT 99
[2024-01-04] MEDS ORDERED: Sodium Chloride 0.9% 500 ML 500 ML IV ONE (18:47)
[2024-01-04] MEDS: Sodium Chloride 0.9% 500 ML 500 ML IV SCH (18:51)
== END 2024-01-04 19:32 | disposition home or self-care (01) ==
LOC: ED 14:13
DX: R06.02 Shortness of breath (principal); E87.20 Acidosis, unspecified; E11.65 Type 2 diabetes mellitus with hyperglycemia; I10 Essential (primary) hypertension; Z79.84 Long term (current) use of oral hypoglycemic drugs; Z79.52 Long term (current) use of systemic steroids; Z79.899 Other long term (current) drug therapy
CPT/HCPCS: 0241U; 36000; 36415; 71045; 80053; 83605; 83735; 83880; 84484; 85025; 87040; 93005; 94760; 96360; 99284

== ENCOUNTER 2025-06-17 05:52 | Day surgery (SDC) | payer OTHER ==
[2025-06-17 07:22] LABS: Calcium 9.8 mg/dL (8.4-10.2); Carbon Dioxide 25.0 mmol/L (22-30); Creatinine 1 0.93 mg/dL (0.52-1.04); EST GLOMERULAR FILTRATION RATE 74.4 ML/MIN; Glucose 83.0 mg/dL (74-106); Potassium 3.6 mmol/L (3.5-5.1)
[2025-06-17] MEDS ORDERED: propofoL IV ONE ×2 (07:42)
[2025-06-17] MEDS ORDERED: Xylocaine-Mpf 2% 5 Ml Vial ONE (07:42)
[2025-06-17 08:19] VITALS: RESP 16
[2025-06-17 08:32] VITALS: BP 119/60; PULSE 55; TEMP 97.1; O2SAT 100
--- NOTE | 2025-06-18 12:17 | OP ---
SURGERY DATE/TIME: 06/17/2025 [id number] PREOPERATIVE DIAGNOSES: 1) Screening colonoscopy. 2) Family history of colon cancer. POSTOPERATIVE DIAGNOSIS: Sigmoid colon polyp. PROCEDURE: Colonoscopy. SURGEON: Raj Guadalupe MD ANESTHESIA: MAC by Tom Rasmussen CRNA ESTIMATED BLOOD LOSS: Minimal. SPECIMEN: Hot forceps polypectomy from the sigmoid colon. DESCRIPTION OF PROCEDURE AND FINDINGS: After informed written consent was obtained, the patient was taken to the endoscopy suite. She was placed in the left lateral decubitus position and anesthesia was titrated to desired level of consciousness. Digital rectal exam showed normal sphincter tone and no internal lesions. The scope was inserted into the rectum and sequentially the entire colonic mucosa was traversed. Level of the cecum was reached and verified with direct visualization of the ileocecal valve. Upon withdrawal, careful mucosal inspection revealed no gross abnormalities until the distal sigmoid colon was reached. There was a small sessile polyp grasped with the forceps, cauterized, removed, and sent for pathology testing. Area was hemostatic, and entire lesion appeared to be removed and/or destroyed. Upon further withdrawal, no other abnormalities were encountered. Retroflexion was performed and showed no internal lesions. The scope was removed, and the patient was transferred to the recovery room in good condition. She will follow up in 1 week for pathology report.
== END 2025-06-17 08:40 | disposition home or self-care (01) ==
LOC: SDC 05:52 → EDSTATUS 14:45
PROVIDERS: ATTEND Family Medicine
DX: Z12.11 Encounter for screening for malignant neoplasm of colon (principal); Z80.0 Family history of malignant neoplasm of digestive organs; I10 Essential (primary) hypertension; D12.5 Benign neoplasm of sigmoid colon